=== PATIENT | male | born 1940 | race Caucasian/White ===

== ENCOUNTER → 2016-12-05 | Outpatient (REF) | payer MEDICARE ==
[~2016-12-05] MED LIST: ALLO100T PO; ASCO25TA PO; ASPI81TA11 PO; ATEN25TA PO; CIPR500T89 PO; GLUC1CAP9 PO; MULTCAP PO; PERC5TAB6 PO; SIMV40TA2 PO; hydroeye OR; vitamin D OR
== END ==
LOC: M SMT 16:53
PROVIDERS: ATTEND Urology
DX: R97.20 Elevated prostate specific antigen [PSA] (principal)

== ENCOUNTER → 2017-03-03 | Outpatient (REF) | payer MEDICARE ==
[2017-03-03 18:40] LABS: FOLATE > 24.0 NG/ML; VITAMIN B12 LEVEL 663 PG/ML
== END ==
LOC: M LAB REF 17:14
PROVIDERS: ATTEND Internal Medicine
DX: R41.3 Other amnesia (principal)

== ENCOUNTER → 2017-03-06 | Outpatient (CLI) | payer MEDICARE | LOC: M SMT 14:28 | PROVIDERS: ATTEND Urology | DX: Z85.46 Personal history of malignant neoplasm of prostate (principal) ==

== ENCOUNTER → 2017-09-11 | Outpatient (CLI) | payer MEDICARE ==
[~2017-09-11] MED LIST changes: +ASPI-101 PO; -ASPI81TA11 PO; +CIPR-249 PO; -CIPR500T89 PO; +PERC5TAB12 PO; -PERC5TAB6 PO
== END ==
LOC: M SMT 13:29
PROVIDERS: ATTEND Nurse Practitioner Women's Health
DX: C61 Malignant neoplasm of prostate (principal)

== ENCOUNTER → 2018-06-01 | Outpatient (REF) | payer MEDICARE ==
[2018-06-01 20:43] LABS: RHEUMATOID FACTOR QUANT < 10.0 IU/ML (<15.0)
[2018-06-01 20:43] LABS: C REACTIVE PROTEIN QUANTITATIV 0.96 MG/DL (0.00-0.30)
[2018-06-03 14:14] LABS: ANTINUCLEAR ANTIBODIES DIRECT Negative (Negative); Lyme Disease IgG/IgM Antibodie <0.91 ISR (0.00-0.90); Lyme Disease IgM Ab Quantitati <0.80 index (0.00-0.79)
== END ==
LOC: M LAB REF 20:10
DX: M15.9 Polyosteoarthritis, unspecified (principal)
CPT/HCPCS: 86140

== ENCOUNTER → 2018-07-13 | Outpatient (REF) | payer MEDICARE ==
[2018-07-13 18:37] LABS: BASO % 0.3 % (0.0-1.0); EOS # 0.1 10^3/uL (0.0-0.50); EOS % 1.2 % (0.0-3.0); HEMATOCRIT 41.3 % (42.0-52.0); HEMOGLOBIN 13.5 g/dl (13.5-17.5); IMMATURE GRANULOCYTE % 0.5 % (0-3.0); LYMPH # 2.4 10^3/uL (1.5-4.5); LYMPH % 26.2 % (24.0-44.0); MEAN CORPUSCULAR HGB CONC 32.7 g/dl (32.0-36.5); MEAN CORPUSCULAR VOLUME 88.8 fl (80.0-96.0); MONO # 1.2 10^3/uL (0.0-0.8); MONO % 12.6 % (0.0-5.0); NEUTROPHILS # 5.4 10^3/uL (1.8-7.7); NEUTROPHILS % 59.2 % (36.0-66.0); PLATELET COUNT, AUTOMATED 241 10^3/uL (150-450); RED BLOOD COUNT 4.65 10^6/uL (4.30-6.10); RED CELL DISTRIBUTION WIDTH 14.7 % (11.5-14.5); WHITE BLOOD COUNT 9.2 10^3/uL (4.0-10.0)
[2018-07-13 18:40] LABS: ALBUMIN 3.5 GM/DL (3.2-5.2); ALBUMIN/GLOBULIN RATIO 1.13 (1.00-1.93); ALKALINE PHOSPHATASE 86 U/L (45-117); ALT/SGPT 29 U/L (12-78); ANION GAP 9 MEQ/L (8-16); AST/SGOT 11 U/L (7-37); BILIRUBIN,TOTAL 0.4 MG/DL (0.2-1.0); BLOOD UREA NITROGEN 17 MG/DL (7-18); C REACTIVE PROTEIN QUANTITATIV 2.95 MG/DL (0.00-0.30); CARBON DIOXIDE LEVEL 28 MEQ/L (21-32); CHLORIDE LEVEL 105 MEQ/L (98-107); CREATININE FOR GFR 0.87 MG/DL (0.70-1.30); GLOMERULAR FILTRATION RATE > 60.0 (>42); GLUCOSE, FASTING 104 MG/DL (70-100); POTASSIUM SERUM 4.2 MEQ/L (3.5-5.1); SODIUM LEVEL 142 MEQ/L (136-145); TOTAL PROTEIN 6.6 GM/DL (6.4-8.2); URIC ACID 4.1 MG/DL (3.5-7.2)
[2018-07-13 20:01] LABS: ERYTHROCYTE SEDIMENTATION RATE 12 mm/hr (0-20)
== END ==
LOC: M SFHCLERA 09:11
DX: M25.50 Pain in unspecified joint (principal)
CPT/HCPCS: 84550

== ENCOUNTER → 2018-07-13 | Outpatient (CLI) | payer MEDICARE | LOC: M LRY 13:17 | DX: M25.721 Osteophyte, right elbow (principal); M19.041 Primary osteoarthritis, right hand; M19.011 Primary osteoarthritis, right shoulder | CPT/HCPCS: 73030; 84550 ==

== ENCOUNTER → 2018-08-30 | Outpatient (CLI) | payer MEDICARE ==
[2018-08-30 13:32] LABS: C REACTIVE PROTEIN QUANTITATIV 1.31 MG/DL (0.00-0.30); CHOLESTEROL LEVEL 238 MG/DL (<200); CHOLESTEROL RISK RATIO 6.611 (<5); HDL CHOLESTEROL 36 MG/DL (>40); LDL CHOLESTEROL 146 MG/DL (<100); NON-HDL-C 202 MG/DL; TRIGLYCERIDES LEVEL 281 MG/DL (<150)
== END ==
LOC: M SMT 10:40
DX: M25.50 Pain in unspecified joint (principal)
CPT/HCPCS: 80061

== ENCOUNTER → 2018-08-30 | Outpatient (REF) | payer MEDICARE | LOC: M SFHCLERA 09:34 | DX: M25.50 Pain in unspecified joint (principal) ==

== ENCOUNTER → 2018-09-20 | Outpatient (CLI) | payer MEDICARE ==
[2018-09-20 18:34] LABS: PROSTATIC SPECIFIC AG MONITOR < 0.0 NG/ML (< 4.0)
== END ==
LOC: M SMT 13:08
DX: Z85.46 Personal history of malignant neoplasm of prostate (principal)
CPT/HCPCS: 84153

== ENCOUNTER → 2019-03-28 | Outpatient (CLI) | payer MEDICARE ==
[~2019-03-28] MED LIST changes: -ASCO25TA PO; -ASPI-101 PO; +ASPI-225 PO; +VITA1TAB23 PO
== END ==
LOC: M SMT 10:27
PROVIDERS: ATTEND Nurse Practitioner Women's Health
DX: Z85.46 Personal history of malignant neoplasm of prostate (principal)

== ENCOUNTER → 2019-09-29 | Outpatient (CLI) | payer MEDICARE ==
[~2019-09-29] MED LIST changes: -SIMV40TA2 PO; +SIMV40TA20 PO
== END ==
LOC: M PLALAB 13:23
PROVIDERS: ATTEND Nurse Practitioner Women's Health
DX: Z85.46 Personal history of malignant neoplasm of prostate (principal)

== ENCOUNTER 2019-10-04 17:27 | Emergency (ER) | payer MEDICARE ==
[~2019-10-04] VITALS: Ht 172.7 cm; Wt 100.2 kg
[~2019-10-04 17:27] MED LIST changes: -ASPI-225 PO; +ASPI81TA78 PO
[2019-10-04] MEDS ORDERED: METO1TAB7 PO (17:36)
[2019-10-04] MEDS ORDERED: ASPI81TA85 PO (17:36)
[2019-10-04] MEDS ORDERED: ASPIRIN 81 MG CHEW TABLET PO ONE (18:15)
--- NOTE | 2019-10-04 18:48 | REP ---
Clinical: Chest pain . Comparison: 12/21/2014 . Findings: The mediastinum and cardiac silhouette are stable and within normal limits for portable technique. The lung stephenson demonstrate chronic changes without acute consolidation, effusion, or pneumothorax. Skeletal structures are intact. Impression: No acute cardiopulmonary process appreciated. Electronically Signed by Bryn Mayo MD 10/04/2019 06:39 P
[2019-10-04 19:07] LABS: BASO % 0.5 % (0.0-1.0); EOS # 0.1 10^3/uL (0.0-0.5); EOS % 1.3 % (0.0-3.0); HEMATOCRIT 43.6 % (42.0-52.0); HEMOGLOBIN 14.5 g/dl (13.5-17.5); LYMPH # 1.9 10^3/uL (1.5-5.0); LYMPH % 22.2 % (24.0-44.0); MEAN CORPUSCULAR HEMOGLOBIN 31.3 pg (27.0-33.0); MEAN CORPUSCULAR HGB CONC 33.3 g/dl (32.0-36.5); MONO # 0.8 10^3/uL (0.0-0.8); MONO % 9.2 % (0.0-5.0); NEUTROPHILS # 5.6 10^3/uL (1.5-8.5); NEUTROPHILS % 65.9 % (36.0-66.0); PLATELET COUNT, AUTOMATED 215 10^3/uL (150-450); RED BLOOD COUNT 4.64 10^6/uL (4.30-6.10); WHITE BLOOD COUNT 8.5 10^3/uL (4.0-10.0)
[2019-10-04 19:30] LABS: ALBUMIN 3.6 GM/DL (3.2-5.2); ALT/SGPT 32 U/L (12-78); BILIRUBIN,DIRECT 0.1 MG/DL (0.0-0.2); BILIRUBIN,TOTAL 0.3 MG/DL (0.2-1.0); BLOOD UREA NITROGEN 19 MG/DL (7-18); CALCIUM LEVEL 9.1 MG/DL (8.8-10.2); CARBON DIOXIDE LEVEL 26 MEQ/L (21-32); CHLORIDE LEVEL 105 MEQ/L (98-107); CK-MB VALUE MASS 12.9 NG/ML (<3.6); CPK CREATINE PHOSPHOKINASE 323 U/L (39-308); CREATININE FOR GFR 1.09 MG/DL (0.70-1.30); GLOMERULAR FILTRATION RATE > 60.0 (>42); GLUCOSE, FASTING 145 MG/DL (70-100); LIPASE 165 U/L (73-393); MB/CK RELATIVE INDEX 3.99 (< OR =4); SODIUM LEVEL 143 MEQ/L (136-145); TOTAL PROTEIN 6.7 GM/DL (6.4-8.2); TROPONIN I 0.57 NG/ML (< 0.10)
[2019-10-04] MEDS ORDERED: HEPARIN DRIP 25,000 UNITS in IV 1 EA IV SCH (19:48)
[2019-10-04] MEDS ORDERED: HEPARIN SOD (PORCINE) 5000 UNITS/ML VIAL (J1644 PER 1000UNITS) IV ONE (20:00)
[2019-10-04] MEDS ORDERED: CLOPIDOGREL 300 MG TAB (PLAVIX) PO ONE (20:30)
--- NOTE | 2019-10-04 20:37 | ECGEPIP ---
[facility] - ED Test Date: 2019-10-04 Pat Name: LEEANNE ARGUETA Department: Room: - Gender: Male Video Production Engineer: cristiane : [id number] Requested By: Garry Salas Order Number: [id number] Reading MD: Garry Solis Measurements Intervals [place] Rate: 56 P: 41 TX: 234 QRS: -55 QRSD: 186 T: 126 QT: 448 QTc: 434 Interpretive Statements SINUS BRADYCARDIA WITH SINUS ARRHYTHMIA WITH FIRST DEGREE AV BLOCK LEFT AXIS DEVIATION LEFT BUNDLE BRANCH BLOCK SIMILAR TO 12/21/14 Electronically Signed on 10-04-2019 20:37:15 EST by Garry Solis
[2019-10-04 20:50] LABS: INR 1.03; PROTHROMBIN TIME 13.2 SECONDS (11.8-14.0)
[2019-10-04 20:51] LABS: PARTIAL THROMBOPLASTIN TIME 42.3 SECONDS (25.0-38.4)
[2019-10-04 21:18] VITALS: BP 156/96
== END 2019-10-04 21:18 | disposition short-term general hospital (02) ==
LOC: M ED 17:27
DX: I21.9 Acute myocardial infarction, unspecified (principal); R94.31 Abnormal electrocardiogram [ECG] [EKG]; Z85.46 Personal history of malignant neoplasm of prostate; Z79.82 Long term (current) use of aspirin; Z79.899 Other long term (current) drug therapy
CPT/HCPCS: 71045; 80048; 80076; 82550; 82553; 83690; 84484; 85025; 85610; 85730; 93005; 93041; 94760; 96374; 99285; G0463; J1644

== ENCOUNTER 2019-10-25 12:00 | Inpatient (IN) | payer MEDICARE ==
[~2019-10-25] VITALS: Ht 172.7 cm; Wt 87.0 kg
[~2019-10-25 12:00] MED LIST changes: +ASPI81TA85 PO; +METO1TAB7 PO
[2019-10-25] MEDS ORDERED: BISACODYL 10 MG SUPP PR PRN (13:00)
[2019-10-25 13:46] VITALS: BP 132/76
[2019-10-25] MEDS ORDERED: METO50TA7 PO (13:49)
[2019-10-25] MEDS ORDERED: ZYLO300T6 PO (13:49)
[2019-10-25] MEDS ORDERED: ACET-907 PO (13:49)
[2019-10-25] MEDS ORDERED: VITA-158 PO (13:49)
[2019-10-25] MEDS ORDERED: MELA5TAB7 PO (13:49)
[2019-10-25] MEDS ORDERED: FURO20TA2 PO (13:49)
[2019-10-25] MEDS ORDERED: FLOM0.4C39 PO (13:49)
[2019-10-25] MEDS ORDERED: CEFE2INJ2 IV (13:49)
[2019-10-25] MEDS ORDERED: FERR1TAB8 PO (13:49)
[2019-10-25] MEDS ORDERED: CETI10TA4 PO (13:49)
[2019-10-25] MEDS ORDERED: ASPI81CH33 PO (13:49)
[2019-10-25] MEDS ORDERED: LISI-1046 PO (13:49)
[2019-10-25] MEDS ORDERED: POTA10CA32 PO (13:49)
[2019-10-25] MEDS ORDERED: LIDO5TD TOP (13:49)
[2019-10-25] MEDS ORDERED: FOLI1TAB11 PO (13:49)
[2019-10-25] MEDS ORDERED: WARF-18 PO (13:49)
[2019-10-25] MEDS ORDERED: FAMO1TAB11 PO (13:49)
[2019-10-25] MEDS ORDERED: PLAV1TAB2 PO (13:49)
[2019-10-25] MEDS ORDERED: MAGN1INJ2 IV (13:49)
[2019-10-25] MEDS ORDERED: REFR0.1D OU (13:49)
[2019-10-25] MEDS ORDERED: HEPA500057 INJ (13:49)
[2019-10-25] MEDS ORDERED: MOVE1TAB PO (13:49)
[2019-10-25] MEDS ORDERED: traZODone 25MG PER 1/2 TABLET PO PRN (16:45)
[2019-10-25] MEDS: POLYVINYL ALCOHOL OPHTH SOLN 15 ML(LIQUITEARS) OU SCH ×2 (17:52→21:47)
[2019-10-25] MEDS: ACETAMINOPHEN 500 MG TAB PO SCH ×2 (17:52→21:47)
[2019-10-25] MEDS: WARFARIN SOD 2.5 MG TAB PO SCH (17:52)
[2019-10-25 20:00] VITALS: BP 127/59
[2019-10-25] MEDS: IPRATROPIUM 0.02% SOLN 0.5MG/2.5 ML NEB INH SCH (20:36)
[2019-10-25] MEDS: LIDOCAINE 5% (LIDODERM) PATCH TD SCH (21:44)
[2019-10-25] MEDS: FERROUS SULFATE 325MG TAB PO SCH (21:45)
[2019-10-25] MEDS: CETIRIZINE (ZyrTEC) 10 MG TAB PO SCH (21:45)
[2019-10-25] MEDS: SENNA 8.6 MG TAB (SENOKOT) PO SCH (21:45)
[2019-10-25] MEDS: TAMSULOSIN 0.4 MG CAP PO SCH (21:45)
[2019-10-25] MEDS: METOPROLOL TART 50 MG TAB PO SCH (21:45)
[2019-10-25] MEDS: DOCUSATE SODIUM 100 MG CAP PO SCH (21:46)
[2019-10-25] MEDS: CEFDINIR 300 MG CAP (OMNICEF) PO SCH (21:47)
[2019-10-26 06:00] VITALS: BP 147/68
[2019-10-26 07:48] LABS: BASO % 0.3 % (0.0-1.0); EOS # 0.3 10^3/uL (0.0-0.5); EOS % 3.2 % (0.0-3.0); HEMATOCRIT 27.2 % (42.0-52.0); HEMOGLOBIN 8.3 g/dl (13.5-17.5); LYMPH # 1.1 10^3/uL (1.5-5.0); LYMPH % 10.8 % (24.0-44.0); MEAN CORPUSCULAR HEMOGLOBIN 28.1 pg (27.0-33.0); MEAN CORPUSCULAR HGB CONC 30.5 g/dl (32.0-36.5); MEAN CORPUSCULAR VOLUME 92.2 fl (80.0-96.0); MONO # 1.4 10^3/uL (0.0-0.8); MONO % 13.7 % (0.0-5.0); NEUTROPHILS % 70.7 % (36.0-66.0); PLATELET COUNT, AUTOMATED 550 10^3/uL (150-450); RED BLOOD COUNT 2.95 10^6/uL (4.30-6.10)
[2019-10-26] MEDS: IPRATROPIUM 0.02% SOLN 0.5MG/2.5 ML NEB INH SCH ×2 (08:00→14:00)
[2019-10-26 08:02] LABS: INR 2.17
[2019-10-26 08:20] LABS: ALBUMIN 2.6 GM/DL (3.2-5.2); ALT/SGPT 78 U/L (12-78); BILIRUBIN,TOTAL 0.5 MG/DL (0.2-1.0); BLOOD UREA NITROGEN 15 MG/DL (7-18); CALCIUM LEVEL 8.3 MG/DL (8.8-10.2); CARBON DIOXIDE LEVEL 27 MEQ/L (21-32); CHLORIDE LEVEL 106 MEQ/L (98-107); CREATININE FOR GFR 0.89 MG/DL (0.70-1.30); GLOMERULAR FILTRATION RATE > 60.0 (>42); GLUCOSE, FASTING 106 MG/DL (70-100); POTASSIUM SERUM 4.1 MEQ/L (3.5-5.1); SODIUM LEVEL 141 MEQ/L (136-145); TOTAL PROTEIN 6.1 GM/DL (6.4-8.2)
[2019-10-26] MEDS: FOLIC ACID 1 MG TAB PO SCH (09:21)
[2019-10-26] MEDS: allopurinoL 300 MG TAB PO SCH (09:21)
[2019-10-26] MEDS: POTASSIUM CHLORIDE 10 MEQ SR TABLET PO SCH (09:21)
[2019-10-26] MEDS: LISINOPRIL *2.5 MG* TAB PO SCH (09:21)
[2019-10-26] MEDS: ROSUVASTATIN 10 MG TAB (CRESTOR) PO SCH (09:21)
[2019-10-26] MEDS: DOCUSATE SODIUM 100 MG CAP PO SCH ×2 (09:22→22:07)
[2019-10-26] MEDS: METOPROLOL TART 50 MG TAB PO SCH ×2 (09:22→22:08)
[2019-10-26] MEDS: FUROSEMIDE 20 MG TAB PO SCH (09:22)
[2019-10-26] MEDS: PANTOPRAZOLE 40MG TAB (PROTONIX) PO SCH (09:22)
[2019-10-26] MEDS: CEFDINIR 300 MG CAP (OMNICEF) PO SCH ×2 (09:22→22:07)
[2019-10-26] MEDS: ASCORBIC ACID 500 MG TAB PO SCH (09:22)
[2019-10-26] MEDS: CLOPIDOGREL 75 MG TAB PO SCH (09:22)
[2019-10-26] MEDS: ASPIRIN 81 MG ENTERIC TAB PO SCH (09:22)
[2019-10-26] MEDS: FERROUS SULFATE 325MG TAB PO SCH ×2 (09:22→22:08)
[2019-10-26] MEDS: ACETAMINOPHEN 500 MG TAB PO SCH ×3 (09:22→22:07)
[2019-10-26] MEDS: POLYVINYL ALCOHOL OPHTH SOLN 15 ML(LIQUITEARS) OU SCH ×3 (09:23→22:15)
[2019-10-26] MEDS: **NOTE PATIENT COMMENT** MISC XX SCH (09:23)
--- NOTE | 2019-10-26 13:37 | IPNPDOC ---
PM&R Progress Note DATE OF SERVICE: Oct 26, 2019 Rotating Equipment Engineer Progress Note Subjective: Patient reporting he did well today in therapy, feels ok, but does have a cough and has difficulty catching his breath, but denies chest pain. REVIEW OF SYSTEMS: The following is a completed review of systems and has been reviewed. Review of systems otherwise unremarkable. PAIN: Patient self reports no pain EYES: No recent vision changes EARS, NOSE, & THROAT: No throat pain, or dysphagia, or rhinorrhea CARDIOVASCULAR: Denies chest pain or palpitations PULMONARY: Denies shortness of breath at rest, +exertional dyspnea GASTROINTESTINAL: Denies constipation/diarrhea GENITOURINARY: denies dysuria MUSCULOSKELETAL: generalized weakness NEUROLOGICAL:denies focal tremor or seizure activity HEMATOLOGICAL: denies easy bruising SKIN: sternal and chest wall incision PSYCHIATRIC: Unremarkable All other review of systems found to be negative. PHYSICAL EXAMINATION: VITAL SIGNS: Please see below. GENERAL: Pleasant and cooperative. No acute distress. HEENT: PERRL. Extraocular movements intact. Clear conjunctiva CARDIOVASCULAR: Regular rate and rhythm. No murmurs, rubs, or gallops LUNGS: Clear to auscultation bilaterally. No wheezes. No rhonchi ABDOMEN: Soft, nontender, nondistended. Positive bowel sounds. Normal active bowel sounds NEUROLOGICAL: Alert and oriented times three. Cranial nerves II through XII grossly intact. Sensation grossly intact in all 4 extremities EXTREMITIES: 5\\5 strength bilateral upper extremities. 5\\5 strength right lower extremity. 5/5 strength in left lower extremity. +bilat LE edema SKIN: sternal incision c/d/i, pacemaker incision c/d/i right calf with bruising, erythematous, and mildly TTP ASSESSMENT:79-year-old M with past medical history of HTN, CAD who presents status post CABGx6 complicated by long hospital course with generalized weakness and cardiac deconditioning PLAN: 1. Rehab- PT, OT advance gait training and endurance using energy conservation techniques-sternal and pacemaker precautions -goal max-exertion RPE 4-5 2.Cardiac: s/p CABGx6 and pacemaker in setting of newly diagnoses afib with tach-abundio syndrome-c/u metoprolol, ASA, Plavix, and Coumadin goal INR 2-3, medicine consulted to assist in management -will refer to cardiac rehab -HTN and systolic CHF with EF 40-45% c/u lisinopril, lasix, will fluid restrict, daily weights -HLD c/u statin 3. Resp: monitor for infection, patient with mild cough, will change to Duonebs, add guaifenasin -CXR today hsows bilateral pleural effusions with new left lower lobe opacity, and "New right paratracheal mediastinal mass status post recent sternotomy with pacemaker"- patient without leukocytosis or fever, will discuss with medicine adjusting antibiotics for possible PNA, Resp panel ordered -CT Chest with contrast confirmed mass is a hematoma, discussed case with [facility] radiology who could not do CT-CT comparison, but was able to compare X-ray-X-ray and said is was about the same size -will consider repeat CT chest to monitor size of hematoma if Hgb drops or if patient reports chest pain while on DAPT and Coumadin, it is likely normal post- op changes that will reabsorb on its own 4. ID: c/u Cefdinir for RLE cellulitis, monitor for worsening infection 5. RHeum: hx of gout, c/u allopurinol 6. DVT ppx: on coumadin, RIJ DVT on coumadin 7. GI ppx: protonix- will oder FOBT while on DAPT and Coumadin 8. Pain: tylneol prn 9. Dispo: TBD Allergies Coded Allergies: No Known Allergies (Unverified , 07/13/13) Vital Signs Vital Signs Date Time Temp Pulse Resp B/P (MAP) Pulse Ox O2 Delivery O2 Flow Rate FiO2 10/26/19 09:22 80 10/26/19 09:21 126/62 10/26/19 06:00 97.5 20 95 Room Air Laboratory Data CBC/BMP Laboratory Tests 10/26/19 07:24 Labs 24H Laboratory Tests 2 10/26/19 07:24: Immature Granulocyte % (Auto) 1.3, Neutrophils (%) (Auto) 70.7H, Lymphocytes (%) (Auto) 10.8L, Monocytes (%) (Auto) 13.7H, Eosinophils (%) (Auto) 3.2H, Basophils (%) (Auto) 0.3, Neutrophils # (Auto) 7.0, Lymphocytes # (Auto) 1.1L, Monocytes # (Auto) 1.4H, Eosinophils # (Auto) 0.3, Basophils # (Auto) 0.0, Nucleated Red Blood Cells % (auto) 0.0, Prothrombin Time 24.0H, Prothromb Time International Ratio 2.17, Anion Gap 8, Glomerular Filtration Rate > 60.0, Calcium Level 8.3L, Total Bilirubin 0.5, Aspartate Amino Transf (AST/SGOT) 44H, Alanine Aminotransferase (ALT/SGPT) 78, Alkaline Phosphatase 57, Total Protein 6.1L, Albumin 2.6L, Albumin/Globulin Ratio 0.74L Current Medications Current Medications Current Medications Medications (Trade) Dose Ordered Sig/Rohit Route PRN Reason Start Time Stop Time Status Last Admin Dose Admin Acetaminophen (Tylenol Tab) 1,000 mg TID PO 10/25/19 16:00 10/26/19 09:22 Allopurinol (Zyloprim) 300 mg DAILY PO 10/26/19 09:00 10/26/19 09:21 Artificial Tears (Akwa Tears) 2 drop TID OU 10/25/19 16:00 10/26/19 09:23 Ascorbic Acid (Vitamin C) 500 mg DAILY PO 10/26/19 09:00 10/26/19 09:22 Aspirin (Ecotrin) 81 mg DAILY PO 10/26/19 09:00 10/26/19 09:22 Bisacodyl (Dulcolax Suppository) 10 mg DAILYPRN PRN NC CONSTIPATION 10/25/19 13:00 Cefdinir (Omnicef) 300 mg BID PO 10/25/19 21:00 10/26/19 09:22 Cetirizine HCl (ZyrTEC) 10 mg QHS PO 10/25/19 21:00 10/25/19 21:45 Clopidogrel Bisulfate (PLAVix) 75 mg DAILY PO 10/26/19 09:00 10/26/19 09:22 Docusate Sodium (Colace) 100 mg BID PO 10/25/19 21:00 10/26/19 09:22 Ferrous Sulfate (Ferrous Sulfate) 325 mg BID PO 10/25/19 21:00 10/26/19 09:22 Folic Acid (Folic Acid) 1 mg DAILY PO 10/26/19 09:00 10/26/19 09:21 Furosemide (Lasix) 20 mg DAILY PO 10/26/19 09:00 10/31/19 21:00 10/26/19 09:22 Home Med (Med Rec Complete!) ASDIRECTED XX 10/25/19 14:00 10/25/19 13:55 DC Ipratropium [place] (Atrovent 0.02%) 0.5 mg RTID INH 10/25/19 20:00 10/25/19 20:36 Lidocaine (Lidoderm Patch) 2 patch QHS TD 10/25/19 21:00 10/25/19 21:44 Lisinopril (Prinivil) 2.5 mg DAILY PO 10/26/19 09:00 10/26/19 09:21 Metoprolol Tartrate (Lopressor) 50 mg BID PO 10/25/19 21:00 10/26/19 09:22 Non-Formulary Medication ( See Comment Field Below ) REMOVE LIDODERM PATCH DAILY@0900 XX 10/26/19 09:00 10/26/19 09:23 Pantoprazole Sodium (Protonix) 40 mg DAILY PO 10/26/19 09:00 10/26/19 09:22 Polyethylene Glycol (Miralax) 1 pkt DAILY PRN PO CONSTIPATION 10/25/19 13:00 Potassium Chloride (Micro-K Extencaps) 10 meq DAILY PO 10/26/19 09:00 10/31/19 21:00 10/26/19 09:21 Rosuvastatin Calcium (Crestor) 20 mg DAILY PO 10/26/19 09:00 10/26/19 09:21 Senna (Senokot) 1 tab QHS PO 10/25/19 21:00 10/25/19 21:45 Tamsulosin HCl (Flomax) 0.4 mg QHS PO 10/25/19 21:00 10/25/19 21:45 Trazodone HCl (Desyrel) 25 mg QHSP PRN PO INSOMNIA 10/25/19 16:45 10/26/19 01:39 Warfarin Sodium (Coumadin) 2.5 mg DAILY@17 PO 10/25/19 17:00 10/25/19 17:52 LIGIA RICH MD Oct 26, 2019 13:37
--- NOTE | 2019-10-26 13:37 | HPEPDOC ---
Smoking Pipe Liner Note DATE OF ADMISSION: 10-25-19 DATE OF SERVICE: 10-25-19 TIME OF ADMISSION: Please refer to physician's admission order. SOURCE OF ADMISSION INFORMATION: patient and [facility] records CHIEF COMPLAINT: CABG x6 and pacemaker placement HISTORY OF PRESENT ILLNESS: 79M pmh HTN, HLD, gout, prostate cancer who presented to [facility] ED on 10-04-19 with chest pain, noted to have an NSTEMI and transferred to [facility] on a heparin drip and underwent cardiac catheterization on 10-05-19 which showed multiple stenotic vessels and underwent a 6-vessel CABG on 10-10-19. Had had post-op Afib with RVR with episodes of tachycardia and bradycardia for which a pacemaker was ultimately placed on 10-18-19. He also had a post-op ileus and urinary retention for which a Valles was placed then later removed. He developed RLE harvest side cellulitis and treated with IV antibiotics then transitioned to po. He was started on Coumadin for Afib, evaluated by therapy and noted to have impairments in ADLs and mobility below his prior level of function and deemed medically appropriate for discharge to ARU on 10-25-19. REVIEW OF SYSTEMS: The following is a completed review of systems and has been reviewed. Review of systems otherwise unremarkable. PAIN: Patient self reports no pain EYES: No recent vision changes EARS, NOSE, & THROAT: No throat pain, or dysphagia, or rhinorrhea CARDIOVASCULAR: Denies chest pain or palpitations PULMONARY: Denies shortness of breath at rest, +exertional dyspnea GASTROINTESTINAL: Denies constipation/diarrhea GENITOURINARY: denies dysuria MUSCULOSKELETAL: generalized weakness NEUROLOGICAL:denies focal tremor or seizure activity HEMATOLOGICAL: denies easy bruising SKIN: sternal and chest wall incision PSYCHIATRIC: Unremarkable All other review of systems found to be negative. PAST MEDICAL HISTORY: as per HPI PAST SURGICAL HISTORY: prostatectomy ALLERGIES: Please see below. MEDICATIONS: Please see below. SOCIAL HISTORY: no smoking, etoh, or illicit drugs, plays tennis DIET: low salt, fluid restrict PHYSICAL EXAMINATION: VITAL SIGNS: Please see below. GENERAL: Pleasant and cooperative. No acute distress. HEENT: PERRL. Extraocular movements intact. Clear conjunctiva CARDIOVASCULAR: Regular rate and rhythm. No murmurs, rubs, or gallops LUNGS: Clear to auscultation bilaterally. No wheezes. No rhonchi ABDOMEN: Soft, nontender, nondistended. Positive bowel sounds. Normal active bowel sounds NEUROLOGICAL: Alert and oriented times three. Cranial nerves II through XII grossly intact. Sensation grossly intact in all 4 extremities EXTREMITIES: 5\5 strength bilateral upper extremities. 5\5 strength right lower extremity. 5/5 strength in left lower extremity. +bilat LE edema SKIN: sternal incision c/d/i, pacemaker incision c/d/i right calf with bruising, erythematous, and mildly TTP LABORATORY DATA: Please see below. IMAGING:Imaging documentation personally reviewed by record FUNCTIONAL STATUS: Premorbid: Independent with all activities of daily life as well as mobility On Admission: Min-assist for ambulation, functional transfers, dressing, toileting, bathing GOALS: Mod-I doss ambulation community distances, stairs, functional transfers, bathing, dressing, toileting, medical optimization ASSESSMENT:79-year-old M with past medical history of HTN, CAD who presents status post CABGx6 complicated by long hospital course with generalized weakness and cardiac deconditioning PLAN: 1. Rehab- PT, OT advance gait training and endurance using energy conservation techniques-sternal and pacemaker rpecautions -goal max-exertion RPE 4-5 2.Cardiac: s/p CABGx6 and pacemaker in setting of newly diagnoses afib with tach-abundio syndrome-c/u metoprolol, ASA, Plavix, and Coumadin goal INR 2-3, medicine consulted to assist in management -will refer to cardiac rehab -HTN and systolic CHF with EF 40-45% c/u lisinopril, lasix, will fluid restrict, daily weights -HLD c/u statin 3. Resp: monitor for infection, patient with mild cough, will start Ipratropium nebs 4. ID: c/u Cefdinir for RLE cellulitis, monitor for worsening infection 5. RHeum: hx of gout, c/u allopurinol 6. DVT ppx: on coumadin 7. GI ppx: protonix- will oder FOBT while on DAPT and Coumadin 8. Pain: tylneol prn 9. Dispo: TBD POST ADMISSION PHYSICIAN EVALUATION: Medical and functional status: Description of medical status, medical assessment: As above. Rehabilitation diagnosis and current and prior cold morbid medical conditions as above. Risk of complications and plans to mitigate them as above. Description of functional status current status is as above. Prior status as above. Status compared to preadmission: There are no clinically significant differences between the patient's current status and the information described on the preadmission screening document. Treatment plan anticipated: Treatment plan is as described above. Required disciplines including physical therapy, occupational therapy, others as noted above. Intensity of services: 3 hours a day, 6 days a week. Special considerations: There are no specific special or safety considerations that would likely preclude immediate implementation of an intensive rehabilitation program or subsequently influence the plan of care ATTESTATION: Considering all the information above, it is my best judgment that this patient requires intensive rehabilitation therapy as described above and an inpatient hospital environment due to the complexity of nursing, medical, and rehabilitation needs required by the patient. Furthermore, this patient can reasonably be expected to participate in an benefit from an inpatient rehabilitation stay with an interdisciplinary team approach to the delivery of rehabilitation care under the direction and supervision of rehabilitation physician PROGNOSIS: Good ESTIMATED LENGTH OF STAY:14-16 days. PROJECTED DISCHARGE DESTINATION: Home with family support and any durable medical equipment required to increase functional safety and mobility. TIME SPENT COUNSELING AND COORDINATING INITIAL CARE: Greater than 70 minutes. Vital Signs Vital Sign - Last 24 Hours 10/25/19 10/25/19 10/25/19 10/26/19 13:46 20:00 21:45 06:00 Temp 97.4 97.9 97.5 Pulse 69 82 77 65 Resp 18 18 20 B/P (MAP) 132/76 (94) 127/59 (81) 126/68 147/68 (94) Pulse Ox 94 94 95 O2 Delivery Room Air Room Air Room Air 10/26/19 10/26/19 09:21 09:22 Pulse 80 B/P (MAP) 126/62 Laboratory Data CBC/BMP Laboratory Tests 10/26/19 07:24 Labs 24H Laboratory Tests 2 10/26/19 07:24: Immature Granulocyte % (Auto) 1.3, Neutrophils (%) (Auto) 70.7H, Lymphocytes (%) (Auto) 10.8L, Monocytes (%) (Auto) 13.7H, Eosinophils (%) (Auto) 3.2H, Basophils (%) (Auto) 0.3, Neutrophils # (Auto) 7.0, Lymphocytes # (Auto) 1.1L, Monocytes # (Auto) 1.4H, Eosinophils # (Auto) 0.3, Basophils # (Auto) 0.0, Nucleated Red Blood Cells % (auto) 0.0, Prothrombin Time 24.0H, Prothromb Time International Ratio 2.17, Anion Gap 8, Glomerular Filtration Rate > 60.0, Calcium Level 8.3L, Total Bilirubin 0.5, Aspartate Amino Transf (AST/SGOT) 44H, Alanine Aminotransferase (ALT/SGPT) 78, Alkaline Phosphatase 57, Total Protein 6.1L, Albumin 2.6L, Albumin/Globulin Ratio 0.74L Home Medications Scheduled Allopurinol (Zyloprim) 300 Mg Tablet, 300 MG PO DAILY, (Reported) Ascorbic Acid (Vitamin C) 500 Mg Tablet, 500 MG PO DAILY, (Reported) STARTED AT [facility] Aspirin (Aspirin) 81 Mg Tab.chew, 81 MG PO DAILY, (Reported) Cefepime in Iso-Osm Dextrose (Cefepime 2 gm Injection) 2 Gm/100 Ml Froz.piggy, 2 GM IV Q12H, (Reported) STARTED AT [facility] Cetirizine HCl (Cetirizine HCl) 10 Mg Tablet, 10 MG PO QHS, (Reported) Clopidogrel Bisulfate (Plavix) 75 Mg Tablet, 75 MG PO DAILY, (Reported) STARTED AT [facility] Famotidine (Famotidine) 20 Mg Tablet, 20 MG PO BID, (Reported) STARTED AT [facility] Ferrous Sulfate (Ferrous Sulfate) 325 Mg Tablet, 325 MG PO BID, (Reported) STARTED AT [facility] Folic Acid (Folic Acid) 1 Mg Tablet, 1 MG PO DAILY, (Reported) STARTED AT [facility] Furosemide (Furosemide) 20 Mg Tablet, 20 MG PO DAILY, (Reported) STARTED AT [facility] Glucosam/Chond/Hyalu/Cf Borate (Move Free Joint Health Tablet) 1 Each Tablet, 3 TAB PO DAILY, (Reported) Heparin Sodium,Porcine/Pf (Heparin Sod 5,000 Unit/ml Syrg) 5,000 Unit/1 Ml Syringe, 5,000 UNIT INJ Q8H, (Reported) STARTED AT [facility] Lidocaine (Lidocaine) 5% Adh..patch, 1 PATCH TOP DAILY, (Reported) APPLY TO RIGHT SHOULDER - STARTED AT [facility] Lisinopril (Lisinopril) 2.5 Mg Tablet, 2.5 MG PO DAILY, (Reported) STARTED AT [facility] Magnesium Sulfate/D5w (Magnesium Sulf 1 G/100 ml-D5w) 1 Gm/100 Ml Piggyback, 1 GM IV ONCE, (Reported) GIVEN AT [facility] Melatonin (Melatonin) 5 Mg Tablet, 5 MG PO QHS, (Reported) Metoprolol Tartrate (Metoprolol Tartrate) 50 Mg Tablet, 50 MG PO BID, (Reported) MED CHANGED AT [facility] FROM TOPROL XL 50MG DAILY Potassium Chloride (Potassium Chloride) 10 Meq Capsule.er, 10 MEQ PO DAILY, (Reported) STARTED AT [facility] Simvastatin (Simvastatin) 40 Mg Tab, 40 MG PO QHS, (Reported) GIVEN CRESTOR 20MG IN THE MORNING AT [facility] Tamsulosin HCl (Flomax) 0.4 Mg Capsule, 0.4 MG PO QHS, (Reported) STARTED AT [facility] Warfarin Sodium (Warfarin Sodium) 2.5 Mg Tablet, 2.5 MG PO QPM, (Reported) STARTED AT [facility] Scheduled PRN Acetaminophen (Tylenol) 325 Mg Tablet, 650 MG PO Q6H PRN for MILD PAIN (PS 1-4), (Reported) Carboxymethylcellulose Sodium (Refresh Plus) 1 Each Droperette, 1 DROP OU TID PRN for DRY EYES, (Reported) Allergies Coded Allergies: No Known Allergies (Unverified , 07/13/13) A-FIB/CHADSVASC A-FIB History Current/History of A-Fib/PAF?: Yes Current PO Anticoag Therapy: Yes LIGIA RICH MD Oct 26, 2019 13:37
[2019-10-26 14:00] VITALS: BP 148/66
--- NOTE | 2019-10-26 15:24 | REP ---
CHEST X-RAY: Two views. HISTORY: Cough. COMPARISON CHEST X-RAY: October 04, 2019. FINDINGS: In the interval since the September 30, 2019 prior study, the patient has undergone median sternotomy. There is a large new right paratracheal mediastinal mass with widening of the mediastinum. This measures approximately 6.5 cm in greatest craniocaudal span. Possibilities include mediastinal hematoma, aneurysm, or adenopathy. There is mild cardiomegaly with bipolar pacemaker in place. Increased density is seen in the left lower lobe behind the heart consistent with atelectasis. There is blunting of the posterior pleural angles bilaterally consistent with bilateral pleural effusions. IMPRESSION: New right paratracheal mediastinal mass status post recent sternotomy with pacemaker. Hematoma versus adenopathy versus aneurysm. CT study of the chest recommended, preferably with IV contrast. Electronically Signed by Troy Altman MD 10/26/2019 06:17 P
[2019-10-26] MEDS ORDERED: ISOVUE-370 76% 100ML VIAL (Q9967) As Ordered ONE (15:42)
--- NOTE | 2019-10-26 15:53 | CR.PDOC ---
General Date of Consultation: Oct 26, 2019 Referring Provider: A Consultation REASON FOR CONSULTATION/CHIEF COMPLAINT: L. knee pain HISTORY OF PRESENT ILLNESS: Patient is 79M with PMH CAD s/p recent CABG, Afib, Prostate cancer s/p prostatectomy, gout, HLD, HTN is admitted to rehab unit after discharged from recent hospitalization. Patient initially presented in 10/04 to [facility] for chest pain and was transferred to [facility] where he underwent CABG with pacemaker placement with course complicated by Afib as well as LE graft infection requiring antibiotics treatment. He is now transferred back to [facility] for rehabilitation. He currently reports having a cough for the past several weeks but with no other associated symptoms including chest pain, SOB, fever, chills, nausea or vomiting. ALLERGIES: Please see below. HOME MEDICATIONS: Please see below. PAST MEDICAL HISTORY: 1. CAD s/p CABG 2. Afib w/ tachy/abundio syndrome s/p pacemaker 3. Prostate ca 4. gout 5. HLD 6. HTN PAST SURGICAL HISTORY: 1. CAD s/p CABG 2. Afib w/ tachy/abundio syndrome s/p pacemaker 3. Prostate ca 4. gout 5. HLD 6. HTN FAMILY HISTORY: Father- DE Mother- DM SOCIAL HISTORY: Social alcohol and cigar use. Denies any drug use. REVIEW OF SYSTEMS: PHYSICAL EXAMINATION: VITAL SIGNS: Please see below. LABORATORY DATA: Please see below. ASSESSMENT/PLAN: 1. CAD s/p CABG - c/w DAPT: ASA, Plavix - No active chest discomfort at this time. 2. Generalized weakness - c/w rehab per ARU. 3. Prostate ca - s/p prostatectomy 4. HTN - c/w lisinopril and metoprolol. 5. gout - c/w allopurinol 6. 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 - Swelling reported improving with no significant erythema around site. 7. Afib - On warfarin. - Monitor INR. 8. HFrEF - EF 40-45%. - c/w ACEI, lasix, metoprolol. DVT ppx: warfarin Vital Signs/I&O Vital Signs Date Time Temp Pulse Resp B/P (MAP) Pulse Ox O2 Delivery O2 Flow Rate FiO2 10/26/19 14:00 98.1 70 18 148/66 (93) 92 Room Air I&O- Last 24 Hours up to 6 AM 10/26/19 06:00 Intake Total 630 ml Balance 630 ml Laboratory Data Labs 24H Laboratory Tests 2 10/26/19 07:24: Immature Granulocyte % (Auto) 1.3, Neutrophils (%) (Auto) 70.7H, Lymphocytes (%) (Auto) 10.8L, Monocytes (%) (Auto) 13.7H, Eosinophils (%) (Auto) 3.2H, Basophils (%) (Auto) 0.3, Neutrophils # (Auto) 7.0, Lymphocytes # (Auto) 1.1L, Monocytes # (Auto) 1.4H, Eosinophils # (Auto) 0.3, Basophils # (Auto) 0.0, Nucleated Red Blood Cells % (auto) 0.0, Prothrombin Time 24.0H, Prothromb Time International Ratio 2.17, Anion Gap 8, Glomerular Filtration Rate > 60.0, Calcium Level 8.3L, Total Bilirubin 0.5, Aspartate Amino Transf (AST/SGOT) 44H, Alanine Aminotransferase (ALT/SGPT) 78, Alkaline Phosphatase 57, Total Protein 6.1L, Albumin 2.6L, Albumin/Globulin Ratio 0.74L CBC/BMP Laboratory Tests 10/26/19 07:24 Allergies Coded Allergies: No Known Allergies (Unverified , 07/13/13) Home Medications Scheduled Allopurinol (Zyloprim) 300 Mg Tablet, 300 MG PO DAILY, (Reported) Ascorbic Acid (Vitamin C) 500 Mg Tablet, 500 MG PO DAILY, (Reported) STARTED AT [facility] Aspirin (Aspirin) 81 Mg Tab.chew, 81 MG PO DAILY, (Reported) Cefepime in Iso-Osm Dextrose (Cefepime 2 gm Injection) 2 Gm/100 Ml Froz.piggy, 2 GM IV Q12H, (Reported) STARTED AT [facility] Cetirizine HCl (Cetirizine HCl) 10 Mg Tablet, 10 MG PO QHS, (Reported) Clopidogrel Bisulfate (Plavix) 75 Mg Tablet, 75 MG PO DAILY, (Reported) STARTED AT [facility] Famotidine (Famotidine) 20 Mg Tablet, 20 MG PO BID, (Reported) STARTED AT [facility] Ferrous Sulfate (Ferrous Sulfate) 325 Mg Tablet, 325 MG PO BID, (Reported) STARTED AT [facility] Folic Acid (Folic Acid) 1 Mg Tablet, 1 MG PO DAILY, (Reported) STARTED AT [facility] Furosemide (Furosemide) 20 Mg Tablet, 20 MG PO DAILY, (Reported) STARTED AT [facility] Glucosam/Chond/Hyalu/Cf Borate (Move Free Joint Health Tablet) 1 Each Tablet, 3 TAB PO DAILY, (Reported) Heparin Sodium,Porcine/Pf (Heparin Sod 5,000 Unit/ml Syrg) 5,000 Unit/1 Ml Syringe, 5,000 UNIT INJ Q8H, (Reported) STARTED AT [facility] Lidocaine (Lidocaine) 5% Adh..patch, 1 PATCH TOP DAILY, (Reported) APPLY TO RIGHT SHOULDER - STARTED AT [facility] Lisinopril (Lisinopril) 2.5 Mg Tablet, 2.5 MG PO DAILY, (Reported) STARTED AT [facility] Magnesium Sulfate/D5w (Magnesium Sulf 1 G/100 ml-D5w) 1 Gm/100 Ml Piggyback, 1 GM IV ONCE, (Reported) GIVEN AT [facility] Melatonin (Melatonin) 5 Mg Tablet, 5 MG PO QHS, (Reported) Metoprolol Tartrate (Metoprolol Tartrate) 50 Mg Tablet, 50 MG PO BID, (Reported) MED CHANGED AT [facility] FROM TOPROL XL 50MG DAILY Potassium Chloride (Potassium Chloride) 10 Meq Capsule.er, 10 MEQ PO DAILY, (Reported) STARTED AT [facility] Simvastatin (Simvastatin) 40 Mg Tab, 40 MG PO QHS, (Reported) GIVEN CRESTOR 20MG IN THE MORNING AT [facility] Tamsulosin HCl (Flomax) 0.4 Mg Capsule, 0.4 MG PO QHS, (Reported) STARTED AT [facility] Warfarin Sodium (Warfarin Sodium) 2.5 Mg Tablet, 2.5 MG PO QPM, (Reported) STARTED AT [facility] Scheduled PRN Acetaminophen (Tylenol) 325 Mg Tablet, 650 MG PO Q6H PRN for MILD PAIN (PS 1-4), (Reported) Carboxymethylcellulose Sodium (Refresh Plus) 1 Each Droperette, 1 DROP OU TID PRN for DRY EYES, (Reported) DALLIN RASHEED MD Oct 26, 2019 15:53
[2019-10-26] MEDS: WARFARIN SOD 2.5 MG TAB PO SCH (17:38)
[2019-10-26] MEDS: guaiFENesin 200 MG TAB PO SCH ×2 (17:38→22:08)
--- NOTE | 2019-10-26 19:04 | REP ---
CT chest with IV contrast: History: Differentiate mediastinal mass. Status post recent coronary artery bypass graft procedure. Comparison is made with today's chest x-ray and prior portable chest which was preoperative taken on in October 04, 2019. CT contrast dose: 75 ml of intravenous Isovue [address] findings: Preliminary digital infusion rn radiograph demonstrates prominent swelling of the right paratracheal region of the mediastinum. Pacemaker is noted in place. Median sternotomy wires are seen. On axial imaging, there are bilateral pleural effusions which are small, right a little larger than left. Four-chamber cardiomegaly is observed. There is a small amount of pericardial fluid. There is a there is a fairly homogeneous attenuation oval-shaped right paratracheal mediastinal mass. This measures 6.5 cm craniocaudal x 6.4 cm right to left x 5.6 cm anterior to posterior. It is fairly homogeneous in attenuation with proximally 26 mean Hounsfield unit density. This is more most compatible with a postoperative hematoma given that it was not present on the study done 3 weeks prior which was preop. The aorta and its branches appear intact. The hematoma is posterior to the right superior vena cava and lateral to the right trachea and esophagus. There is a minimal amount of fluid in the retrosternal soft tissues. No other hematoma is seen. There is compressive atelectasis in the lower lobes of the lungs bilaterally. Lung stephenson are otherwise clear. There is also evidence of a filling defect in a mildly dilated internal jugular vein on the right indicating nonocclusive thrombosis of the right internal jugular vein. The study is otherwise unremarkable. Impression: There is evidence of a 6.5 cm right paratracheal mediastinal hematoma. There are small bilateral pleural and a very small pericardial effusion. 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 The patient is status post recent median sternotomy. A left-sided transvenous pacemaker is noted in place. Electronically Signed by Troy Altman MD 10/27/2019 09:31 A
[2019-10-26] MEDS: IPRATROPIUM 0.5MG/ALBUTEROL 2.5MG INH SOL UD 3ML (DUONEB)(J7620) NEB SCH (19:45)
[2019-10-26 20:00] VITALS: BP 134/62
[2019-10-26] MEDS: LIDOCAINE 5% (LIDODERM) PATCH TD SCH (22:07)
[2019-10-26] MEDS: TAMSULOSIN 0.4 MG CAP PO SCH (22:07)
[2019-10-26] MEDS: SENNA 8.6 MG TAB (SENOKOT) PO SCH (22:08)
[2019-10-26] MEDS: CETIRIZINE (ZyrTEC) 10 MG TAB PO SCH (22:08)
[2019-10-27 06:00] VITALS: BP 130/63
[2019-10-27 06:46] LABS: BASO % 0.5 % (0.0-1.0); EOS # 0.4 10^3/uL (0.0-0.5); EOS % 4.6 % (0.0-3.0); HEMATOCRIT 27.8 % (42.0-52.0); HEMOGLOBIN 8.3 g/dl (13.5-17.5); LYMPH # 1.3 10^3/uL (1.5-5.0); LYMPH % 15.1 % (24.0-44.0); MEAN CORPUSCULAR HEMOGLOBIN 27.7 pg (27.0-33.0); MEAN CORPUSCULAR HGB CONC 29.9 g/dl (32.0-36.5); MEAN CORPUSCULAR VOLUME 92.7 fl (80.0-96.0); MONO # 1.1 10^3/uL (0.0-0.8); MONO % 13.2 % (0.0-5.0); NEUTROPHILS # 5.4 10^3/uL (1.5-8.5); NEUTROPHILS % 65.3 % (36.0-66.0); PLATELET COUNT, AUTOMATED 551 10^3/uL (150-450); WHITE BLOOD COUNT 8.3 10^3/uL (4.0-10.0)
[2019-10-27 07:05] LABS: INR 2.32; PROTHROMBIN TIME 25.3 SECONDS (11.8-14.0)
[2019-10-27] MEDS: IPRATROPIUM 0.5MG/ALBUTEROL 2.5MG INH SOL UD 3ML (DUONEB)(J7620) NEB SCH ×4 (07:50→20:40)
[2019-10-27] MEDS: CLOPIDOGREL 75 MG TAB PO SCH (08:41)
[2019-10-27] MEDS: guaiFENesin 200 MG TAB PO SCH ×3 (08:41→20:28)
[2019-10-27] MEDS: ROSUVASTATIN 10 MG TAB (CRESTOR) PO SCH (08:41)
[2019-10-27] MEDS: DOCUSATE SODIUM 100 MG CAP PO SCH ×2 (08:41→20:27)
[2019-10-27] MEDS: allopurinoL 300 MG TAB PO SCH (08:41)
[2019-10-27] MEDS: METOPROLOL TART 50 MG TAB PO SCH ×2 (08:42→20:27)
[2019-10-27] MEDS: LISINOPRIL *2.5 MG* TAB PO SCH (08:42)
[2019-10-27] MEDS: POTASSIUM CHLORIDE 10 MEQ SR TABLET PO SCH (08:42)
[2019-10-27] MEDS: FOLIC ACID 1 MG TAB PO SCH (08:42)
[2019-10-27] MEDS: ASPIRIN 81 MG ENTERIC TAB PO SCH (08:42)
[2019-10-27] MEDS: CEFDINIR 300 MG CAP (OMNICEF) PO SCH ×2 (08:42→20:28)
[2019-10-27] MEDS: FUROSEMIDE 20 MG TAB PO SCH (08:43)
[2019-10-27] MEDS: FERROUS SULFATE 325MG TAB PO SCH ×2 (08:43→20:27)
[2019-10-27] MEDS: ASCORBIC ACID 500 MG TAB PO SCH (08:43)
[2019-10-27] MEDS: PANTOPRAZOLE 40MG TAB (PROTONIX) PO SCH ×2 (08:43→20:28)
[2019-10-27] MEDS: **NOTE PATIENT COMMENT** MISC XX SCH (08:44)
[2019-10-27] MEDS: ACETAMINOPHEN 500 MG TAB PO SCH ×3 (08:44→20:28)
[2019-10-27] MEDS: POLYVINYL ALCOHOL OPHTH SOLN 15 ML(LIQUITEARS) OU SCH ×3 (08:45→20:28)
--- NOTE | 2019-10-27 12:07 | IPNPDOC ---
PM&R Progress Note DATE OF SERVICE: Oct 27, 2019 [employer] Progress Note Subjective: Patient reporting he slept well, feels he is breathing better, and denies any worsening of cough. REVIEW OF SYSTEMS: The following is a completed review of systems and has been reviewed. Review of systems otherwise unremarkable. PAIN: Patient self reports no pain EYES: No recent vision changes EARS, NOSE, & THROAT: No throat pain, or dysphagia, or rhinorrhea CARDIOVASCULAR: Denies chest pain or palpitations PULMONARY: Denies shortness of breath at rest, +exertional dyspnea (improving) GASTROINTESTINAL: Denies constipation/diarrhea GENITOURINARY: denies dysuria MUSCULOSKELETAL: generalized weakness NEUROLOGICAL:denies focal tremor or seizure activity HEMATOLOGICAL: denies easy bruising SKIN: sternal and chest wall incision PSYCHIATRIC: Unremarkable All other review of systems found to be negative. PHYSICAL EXAMINATION: VITAL SIGNS: Please see below. GENERAL: Pleasant and cooperative. No acute distress. HEENT: PERRL. Extraocular movements intact. Clear conjunctiva CARDIOVASCULAR: Regular rate and rhythm. No murmurs, rubs, or gallops LUNGS: Clear to auscultation bilaterally. No wheezes. No rhonchi, diminished at the bases ABDOMEN: Soft, nontender, nondistended. Positive bowel sounds. Normal active bowel sounds NEUROLOGICAL: Alert and oriented times three. Cranial nerves II through XII grossly intact. Sensation grossly intact in all 4 extremities EXTREMITIES: 5\\5 strength bilateral upper extremities. 5\\5 strength right lower extremity. 5/5 strength in left lower extremity. +bilat LE edema SKIN: sternal incision c/d/i, pacemaker incision c/d/i right calf with bruising, erythematous, and mildly TTP ASSESSMENT:79-year-old M with past medical history of HTN, CAD who presents status post CABGx6 complicated by long hospital course with generalized weakness and cardiac deconditioning PLAN: 1. Rehab- PT, OT advance gait training and endurance using energy conservation techniques-sternal and pacemaker precautions -goal max-exertion RPE 4-5 2.Cardiac: s/p CABGx6 and pacemaker in setting of newly diagnoses afib with tach -abundio syndrome-c/u metoprolol, ASA, Plavix, and Coumadin goal INR 2-3, medicine consulted to assist in management -will refer to cardiac rehab -HTN and systolic CHF with EF 40-45% c/u lisinopril, will increase lasix to 40mg daily and acewrap for LE edema, c/u fluid restrict, daily weights -HLD c/u statin 3. Resp: monitor for infection, patient with mild cough-improving, c/u Duonebs and guaifenasin -CXR 10-26-19 showing bilateral pleural effusions with new left lower lobe opacity, and "New right paratracheal mediastinal mass status post recent sternotomy with pacemaker"- patient without leukocytosis or fever, discussed with medicine, patient afebrile and without leukocytosis, will monitor for now, low suspicion for active pneumonia -CT Chest with contrast confirmed mass is a hematoma, discussed case with [facility] radiology who could not do CT-CT comparison, but was able to compare X-ray-X-ray and said is was about the same size -will consider repeat CT chest to monitor size of hematoma if Hgb drops or if patient reports chest pain while on DAPT and Coumadin, it is likely normal post- op changes that will reabsorb on its own 4. ID: c/u Cefdinir for RLE cellulitis, monitor for worsening infection- improving 5. RHeum: hx of gout, c/u allopurinol 6. DVT ppx: on coumadin, RIJ DVT on coumadin 7. GI ppx: protonix BID- ordered FOBT while on DAPT and Coumadin 8. Pain: tylneol prn 9. Dispo: TBD Allergies Coded Allergies: No Known Allergies (Unverified , 07/13/13) Vital Signs Vital Signs Date Time Temp Pulse Resp B/P (MAP) Pulse Ox O2 Delivery O2 Flow Rate FiO2 10/27/19 08:42 72 10/27/19 08:42 122/60 10/27/19 06:00 98.0 18 95 Room Air Laboratory Data CBC/BMP Laboratory Tests 10/27/19 06:26 Labs 24H Laboratory Tests 2 10/27/19 06:26: Immature Granulocyte % (Auto) 1.3, Neutrophils (%) (Auto) 65.3, Lymphocytes (%) (Auto) 15.1L, Monocytes (%) (Auto) 13.2H, Eosinophils (%) (Auto) 4.6H, Basophils (%) (Auto) 0.5, Neutrophils # (Auto) 5.4, Lymphocytes # (Auto) 1.3L, Monocytes # (Auto) 1.1H, Eosinophils # (Auto) 0.4, Basophils # (Auto) 0.0, Nucleated Red Blood Cells % (auto) 0.0, Prothrombin Time 25.3H, Prothromb Time International Ratio 2.32 Microbiology Microbiology 10/26/19 Respiratory Virus Panel (PCR) ([facility]) - Final, Complete Current Medications Current Medications Current Medications Medications (Trade) Dose Ordered Sig/Rohit Route PRN Reason Start Time Stop Time Status Last Admin Dose Admin Acetaminophen (Tylenol Tab) 1,000 mg TID PO 10/25/19 16:00 10/27/19 08:44 Albuterol/ Ipratropium (Duoneb (Ipr 0.5mg/Alb 2.5mg)) 3 ml RQID NEB 10/26/19 18:00 10/27/19 07:50 Allopurinol (Zyloprim) 300 mg DAILY PO 10/26/19 09:00 10/27/19 08:41 Artificial Tears (Akwa Tears) 2 drop TID OU 10/25/19 16:00 10/27/19 08:45 Ascorbic Acid (Vitamin C) 500 mg DAILY PO 10/26/19 09:00 10/27/19 08:43 Aspirin (Ecotrin) 81 mg DAILY PO 10/26/19 09:00 10/27/19 08:42 Bisacodyl (Dulcolax Suppository) 10 mg DAILYPRN PRN MT CONSTIPATION 10/25/19 13:00 Cefdinir (Omnicef) 300 mg BID PO 10/25/19 21:00 10/27/19 08:42 Cetirizine HCl (ZyrTEC) 10 mg QHS PO 10/25/19 21:00 10/26/19 22:08 Clopidogrel Bisulfate (PLAVix) 75 mg DAILY PO 10/26/19 09:00 10/27/19 08:41 Docusate Sodium (Colace) 100 mg BID PO 10/25/19 21:00 10/27/19 08:41 Ferrous Sulfate (Ferrous Sulfate) 325 mg BID PO 10/25/19 21:00 10/27/19 08:43 Folic Acid (Folic Acid) 1 mg DAILY PO 10/26/19 09:00 10/27/19 08:42 Furosemide (Lasix) 20 mg DAILY PO 10/26/19 09:00 10/31/19 21:00 10/27/19 08:43 Guaifenesin (Robitussin Tab) 400 mg TID PO 10/26/19 16:00 10/27/19 08:41 Home Med (Med Rec Complete!) ASDIRECTED XX 10/25/19 14:00 10/25/19 13:55 DC Ipratropium [place] (Atrovent 0.02%) 0.5 mg RTID INH 10/25/19 20:00 10/26/19 17:58 DC 10/25/19 20:36 Lidocaine (Lidoderm Patch) 2 patch QHS TD 10/25/19 21:00 10/26/19 22:07 Lisinopril (Prinivil) 2.5 mg DAILY PO 10/26/19 09:00 10/27/19 08:42 Metoprolol Tartrate (Lopressor) 50 mg BID PO 10/25/19 21:00 10/27/19 08:42 Non-Formulary Medication ( See Comment Field Below ) REMOVE LIDODERM PATCH DAILY@0900 XX 10/26/19 09:00 10/27/19 08:44 Pantoprazole Sodium (Protonix) 40 mg DAILY PO 10/26/19 09:00 10/27/19 08:43 Polyethylene Glycol (Miralax) 1 pkt DAILY PRN PO CONSTIPATION 10/25/19 13:00 Potassium Chloride (Micro-K Extencaps) 10 meq DAILY PO 10/26/19 09:00 10/31/19 21:00 10/27/19 08:42 Rosuvastatin Calcium (Crestor) 20 mg DAILY PO 10/26/19 09:00 10/27/19 08:41 Senna (Senokot) 1 tab QHS PO 10/25/19 21:00 10/26/19 22:08 Tamsulosin HCl (Flomax) 0.4 mg QHS PO 10/25/19 21:00 10/26/19 22:07 Trazodone HCl (Desyrel) 25 mg QHSP PRN PO INSOMNIA 10/25/19 16:45 10/26/19 01:39 Warfarin Sodium (Coumadin) 2.5 mg DAILY@17 PO 10/25/19 17:00 10/26/19 17:38 LIGIA RICH MD Oct 27, 2019 12:07
[2019-10-27 14:00] VITALS: BP 142/68
--- NOTE | 2019-10-27 15:50 | IPNPDOC ---
Date Seen The patient was seen on 10/27/19. Progress Note SUBJECTIVE: Patient appears well and reports feeling fine. Cough still noted to be persistent but otherwise denies any other complaints. Afebrile overnight, saturating well on room air. OBJECTIVE PHYSICAL EXAMINATION: VITAL SIGNS: Please see below. General: No acute distress, Alert Eyes: Normal sclera, EOMI HENT: Atraumatic Cardiovascular: Normal rate, normal rhythm. Pulmonary: Clear to auscultation b/l, no wheezing GI: Soft, nontender, nondistended Skin: midline anterior chest incision noted clean with no leakage nor erythema. Neuro: CN grossly intact. No focal deficits. Psych: oriented x 3 LABORATORY DATA: Please see below. ASSESSMENT/PLAN: 1. CAD s/p CABG - c/w DAPT: ASA, Plavix - No active chest discomfort. 2. Generalized weakness - c/w rehab per ARU. 3. Prostate ca - s/p prostatectomy 4. HTN - c/w lisinopril and metoprolol. 5. gout - c/w allopurinol 6. 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 - Swelling reported improving with no significant erythema around site. 7. Afib - On warfarin. - Monitor INR. 8. HFrEF - EF 40-45%. - c/w ACEI, lasix, metoprolol. 9. Cough - suspect bronchitis. CXR shows mild haziness but does not appear to show a clear infiltrate. - Patient does not show clinical evidence of pneumonia that requires antibiotic treatment in my opinion. - Remains afebrile with no leukocytosis. Symptomatic treatment for cough. - Should patient develops evidence of infection, would consider treating for PNA then. - CT chest shows paratracheal mediastinal hematoma likely 2/2 surgery. XR performed here appear to be unchanged from previous. DVT ppx: warfarin VS, I&O, 24H, Fishbone Vital Signs/I&O Vital Signs Date Time Temp Pulse Resp B/P (MAP) Pulse Ox O2 Delivery O2 Flow Rate FiO2 10/27/19 14:00 97.9 70 18 142/68 (92) 100 Room Air I&O- Last 24 Hours up to 6 AM 10/27/19 06:00 Intake Total 870 ml Balance 870 ml Laboratory Data 24H LABS Laboratory Tests 2 10/27/19 06:26: Immature Granulocyte % (Auto) 1.3, Neutrophils (%) (Auto) 65.3, Lymphocytes (%) (Auto) 15.1L, Monocytes (%) (Auto) 13.2H, Eosinophils (%) (Auto) 4.6H, Basophils (%) (Auto) 0.5, Neutrophils # (Auto) 5.4, Lymphocytes # (Auto) 1.3L, Monocytes # (Auto) 1.1H, Eosinophils # (Auto) 0.4, Basophils # (Auto) 0.0, Nucleated Red Blood Cells % (auto) 0.0, Prothrombin Time 25.3H, Prothromb Time International Ratio 2.32 CBC/BMP Laboratory Tests 10/27/19 06:26 Microbiology Microbiology 10/26/19 Respiratory Virus Panel (PCR) ([facility]) - Final, Complete DALLIN RASHEED MD Oct 27, 2019 15:50
[2019-10-27] MEDS: WARFARIN SOD 2.5 MG TAB PO SCH (16:43)
[2019-10-27 20:00] VITALS: BP 149/71
[2019-10-27] MEDS: SENNA 8.6 MG TAB (SENOKOT) PO SCH (20:27)
[2019-10-27] MEDS: CETIRIZINE (ZyrTEC) 10 MG TAB PO SCH (20:28)
[2019-10-27] MEDS: TAMSULOSIN 0.4 MG CAP PO SCH (20:28)
[2019-10-27] MEDS: LIDOCAINE 5% (LIDODERM) PATCH TD SCH (20:29)
[2019-10-28 05:19] VITALS: BP 129/64
[2019-10-28 07:05] LABS: HEMATOCRIT 26.1 % (42.0-52.0); HEMOGLOBIN 7.8 g/dl (13.5-17.5); MEAN CORPUSCULAR HEMOGLOBIN 27.7 pg (27.0-33.0); MEAN CORPUSCULAR HGB CONC 29.9 g/dl (32.0-36.5); MEAN CORPUSCULAR VOLUME 92.6 fl (80.0-96.0); PLATELET COUNT, AUTOMATED 526 10^3/uL (150-450); RED BLOOD COUNT 2.82 10^6/uL (4.30-6.10); WHITE BLOOD COUNT 6.8 10^3/uL (4.0-10.0)
[2019-10-28 07:18] LABS: INR 2.55; PROTHROMBIN TIME 27.3 SECONDS (11.8-14.0)
[2019-10-28 07:31] LABS: BLOOD UREA NITROGEN 15 MG/DL (7-18); CALCIUM LEVEL 7.9 MG/DL (8.8-10.2); CARBON DIOXIDE LEVEL 30 MEQ/L (21-32); CHLORIDE LEVEL 105 MEQ/L (98-107); CREATININE FOR GFR 1.03 MG/DL (0.70-1.30); GLOMERULAR FILTRATION RATE > 60.0 (>42); GLUCOSE, FASTING 96 MG/DL (70-100); POTASSIUM SERUM 4.1 MEQ/L (3.5-5.1); SODIUM LEVEL 141 MEQ/L (136-145)
[2019-10-28] MEDS: IPRATROPIUM 0.5MG/ALBUTEROL 2.5MG INH SOL UD 3ML (DUONEB)(J7620) NEB SCH ×4 (07:31→19:40)
[2019-10-28] MEDS: PANTOPRAZOLE 40MG TAB (PROTONIX) PO SCH ×2 (08:42→20:39)
[2019-10-28] MEDS: guaiFENesin 200 MG TAB PO SCH ×3 (08:42→20:38)
[2019-10-28] MEDS: LISINOPRIL *2.5 MG* TAB PO SCH (08:42)
[2019-10-28] MEDS: ROSUVASTATIN 10 MG TAB (CRESTOR) PO SCH (08:43)
[2019-10-28] MEDS: ACETAMINOPHEN 500 MG TAB PO SCH ×3 (08:43→20:38)
[2019-10-28] MEDS: ASCORBIC ACID 500 MG TAB PO SCH (08:43)
[2019-10-28] MEDS: POTASSIUM CHLORIDE 10 MEQ SR TABLET PO SCH (08:43)
[2019-10-28] MEDS: METOPROLOL TART 50 MG TAB PO SCH ×2 (08:43→20:39)
[2019-10-28] MEDS: DOCUSATE SODIUM 100 MG CAP PO SCH ×2 (08:43→20:38)
[2019-10-28] MEDS: CEFDINIR 300 MG CAP (OMNICEF) PO SCH ×2 (08:44→20:44)
[2019-10-28] MEDS: allopurinoL 300 MG TAB PO SCH (08:44)
[2019-10-28] MEDS: ASPIRIN 81 MG ENTERIC TAB PO SCH (08:44)
[2019-10-28] MEDS: FERROUS SULFATE 325MG TAB PO SCH ×2 (08:44→20:39)
[2019-10-28] MEDS: CLOPIDOGREL 75 MG TAB PO SCH (08:44)
[2019-10-28] MEDS: FUROSEMIDE 20 MG TAB PO SCH (08:44)
[2019-10-28] MEDS: FOLIC ACID 1 MG TAB PO SCH (08:44)
[2019-10-28] MEDS: **NOTE PATIENT COMMENT** MISC XX SCH (08:45)
[2019-10-28] MEDS: POLYVINYL ALCOHOL OPHTH SOLN 15 ML(LIQUITEARS) OU SCH ×3 (08:45→20:40)
[2019-10-28 11:42] VITALS: BP 132/78
[2019-10-28 14:00] VITALS: BP 137/66
[2019-10-28 14:46] VITALS: BP 134/78
[2019-10-28 15:28] LABS: HEMATOCRIT 28.9 % (42.0-52.0); HEMOGLOBIN 8.7 g/dl (13.5-17.5)
[2019-10-28] MEDS: WARFARIN SOD 2.5 MG TAB PO SCH (16:16)
--- NOTE | 2019-10-28 17:55 | IPNPDOC ---
Date Seen The patient was seen on 10/28/19. Progress Note SUBJECTIVE: Patient states that his cough seems better today and that he feels well. Afebrile overnight, saturating well on room air. OBJECTIVE PHYSICAL EXAMINATION: VITAL SIGNS: Please see below. General: No acute distress, Alert Eyes: Normal sclera, EOMI HENT: Atraumatic Cardiovascular: Normal rate, normal rhythm. 1+ pitting edema LLE, 2+ pitting edema RLE. Pulmonary: Clear to auscultation b/l, no wheezing GI: Soft, nontender, nondistended Skin: midline anterior chest incision noted clean with no leakage nor erythema. Neuro: CN grossly intact. No focal deficits. Psych: oriented x 3 LABORATORY DATA: Please see below. ASSESSMENT/PLAN: 1. CAD s/p CABG - c/w DAPT: ASA, Plavix - No active chest discomfort. 2. Generalized weakness - c/w rehab per ARU. 3. Prostate ca - s/p prostatectomy 4. HTN - c/w lisinopril and metoprolol. 5. gout - c/w allopurinol 6. 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 - Swelling reported improving with no significant erythema around site. 7. Afib - On warfarin. - Monitor INR. 8. HFrEF - EF 40-45%. - c/w ACEI, lasix, metoprolol. 9. Cough - suspect bronchitis. CXR shows mild haziness but does not appear to show a clear infiltrate. - Patient does not show clinical evidence of pneumonia that requires antibiotic treatment in my opinion. - Remains afebrile with no leukocytosis. Symptomatic treatment for cough. - Should patient develops evidence of infection, would consider treating for PNA then. - CT chest shows paratracheal mediastinal hematoma likely 2/2 surgery. XR performed here appear to be unchanged from previous. DVT ppx: warfarin VS, I&O, 24H, Fishbone Vital Signs/I&O Vital Signs Date Time Temp Pulse Resp B/P (MAP) Pulse Ox O2 Delivery O2 Flow Rate FiO2 10/28/19 14:46 134/78 (96) 10/28/19 14:00 97.0 76 18 96 Room Air I&O- Last 24 Hours up to 6 AM 10/28/19 06:00 Intake Total 1130 ml Balance 1130 ml Laboratory Data 24H LABS Laboratory Tests 2 10/28/19 06:36: Prothrombin Time 27.3H, Prothromb Time International Ratio 2.55, Anion Gap 6L, Glomerular Filtration Rate > 60.0, Calcium Level 7.9L 10/28/19 06:37: Nucleated Red Blood Cells % (auto) 0.0 CBC/BMP Laboratory Tests 10/28/19 06:36 10/28/19 06:37 10/28/19 15:15 Microbiology Microbiology 10/28/19 Stool Occult Blood ([facility]) - Final, Complete 10/28/19 Gram Stain - Final, Resulted 10/28/19 Sputum Culture, Resulted Pending 10/26/19 Respiratory Virus Panel (PCR) ([facility]) - Final, Complete DALLIN RASHEED MD Oct 28, 2019 17:55
[2019-10-28 20:00] VITALS: BP 104/64
[2019-10-28] MEDS: SENNA 8.6 MG TAB (SENOKOT) PO SCH (20:38)
[2019-10-28] MEDS: TAMSULOSIN 0.4 MG CAP PO SCH (20:38)
[2019-10-28] MEDS: CETIRIZINE (ZyrTEC) 10 MG TAB PO SCH (20:38)
[2019-10-28] MEDS: LIDOCAINE 5% (LIDODERM) PATCH TD SCH (20:39)
[2019-10-29 06:00] VITALS: BP 143/70
[2019-10-29 06:44] LABS: BASO % 0.6 % (0.0-1.0); EOS # 0.4 10^3/uL (0.0-0.5); EOS % 5.7 % (0.0-3.0); HEMATOCRIT 26.4 % (42.0-52.0); HEMOGLOBIN 8.3 g/dl (13.5-17.5); LYMPH # 1.1 10^3/uL (1.5-5.0); MEAN CORPUSCULAR HEMOGLOBIN 28.6 pg (27.0-33.0); MEAN CORPUSCULAR HGB CONC 31.4 g/dl (32.0-36.5); MONO # 0.8 10^3/uL (0.0-0.8); MONO % 12.4 % (0.0-5.0); NEUTROPHILS % 63.2 % (36.0-66.0); PLATELET COUNT, AUTOMATED 505 10^3/uL (150-450); WHITE BLOOD COUNT 6.4 10^3/uL (4.0-10.0)
[2019-10-29 07:02] LABS: INR 2.09; PROTHROMBIN TIME 23.3 SECONDS (11.8-14.0)
[2019-10-29] MEDS: IPRATROPIUM 0.5MG/ALBUTEROL 2.5MG INH SOL UD 3ML (DUONEB)(J7620) NEB SCH ×4 (07:55→19:39)
[2019-10-29] MEDS: ASCORBIC ACID 500 MG TAB PO SCH (09:25)
[2019-10-29] MEDS: POTASSIUM CHLORIDE 10 MEQ SR TABLET PO SCH (09:25)
[2019-10-29] MEDS: guaiFENesin 200 MG TAB PO SCH ×3 (09:25→20:18)
[2019-10-29] MEDS: DOCUSATE SODIUM 100 MG CAP PO SCH ×2 (09:25→20:17)
[2019-10-29] MEDS: FUROSEMIDE 20 MG TAB PO SCH (09:26)
[2019-10-29] MEDS: ASPIRIN 81 MG ENTERIC TAB PO SCH (09:26)
[2019-10-29] MEDS: PANTOPRAZOLE 40MG TAB (PROTONIX) PO SCH ×2 (09:26→20:17)
[2019-10-29] MEDS: CEFDINIR 300 MG CAP (OMNICEF) PO SCH ×2 (09:26→20:18)
[2019-10-29] MEDS: allopurinoL 300 MG TAB PO SCH (09:26)
[2019-10-29] MEDS: FOLIC ACID 1 MG TAB PO SCH (09:26)
[2019-10-29] MEDS: METOPROLOL TART 50 MG TAB PO SCH ×2 (09:26→20:18)
[2019-10-29] MEDS: CLOPIDOGREL 75 MG TAB PO SCH (09:26)
[2019-10-29] MEDS: LISINOPRIL *2.5 MG* TAB PO SCH (09:26)
[2019-10-29] MEDS: FERROUS SULFATE 325MG TAB PO SCH ×2 (09:26→20:17)
[2019-10-29] MEDS: POLYVINYL ALCOHOL OPHTH SOLN 15 ML(LIQUITEARS) OU SCH ×3 (09:27→20:19)
[2019-10-29] MEDS: **NOTE PATIENT COMMENT** MISC XX SCH (09:27)
[2019-10-29] MEDS: ACETAMINOPHEN 500 MG TAB PO SCH ×3 (09:27→20:18)
[2019-10-29] MEDS: ROSUVASTATIN 10 MG TAB (CRESTOR) PO SCH (09:27)
--- NOTE | 2019-10-29 11:38 | IPNPDOC ---
Date Seen The patient was seen on 10/29/19. Progress Note SUBJECTIVE: Patient states that coughing is persistent when he tries to talk but he overall continues to feel better and stronger each day. Afebrile overnight. WBC 6.4. OBJECTIVE PHYSICAL EXAMINATION: VITAL SIGNS: Please see below. General: No acute distress, Alert Eyes: Normal sclera, EOMI HENT: Atraumatic Cardiovascular: Normal rate, normal rhythm. 1+ pitting edema LLE, 2+ pitting edema RLE. Pulmonary: Clear to auscultation b/l, no wheezing GI: Soft, nontender, nondistended Skin: midline anterior chest incision noted clean with no leakage nor erythema. Neuro: CN grossly intact. No focal deficits. Psych: oriented x 3 LABORATORY DATA: Please see below. ASSESSMENT/PLAN: 1. CAD s/p CABG - c/w DAPT: ASA, Plavix - No active chest discomfort. 2. Generalized weakness - c/w rehab per ARU. 3. Prostate ca - s/p prostatectomy 4. HTN - c/w lisinopril and metoprolol. 5. gout - c/w allopurinol 6. 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 - Swelling reported improving with no significant erythema around site. 7. Afib - On warfarin. - Monitor INR. 8. HFrEF - EF 40-45%. - c/w ACEI, lasix, metoprolol. 9. Cough - suspect bronchitis. CXR shows mild haziness but does not appear to show a clear infiltrate. - Patient does not show clinical evidence of pneumonia that requires antibiotic treatment in my opinion. - Remains afebrile with no leukocytosis. Symptomatic treatment for cough. - Should patient develops evidence of infection, would consider treating for PNA then. - CT chest shows paratracheal mediastinal hematoma likely 2/2 surgery. XR performed here appear to be unchanged from previous. DVT ppx: warfarin VS, I&O, 24H, Fishbone Vital Signs/I&O Vital Signs Date Time Temp Pulse Resp B/P (MAP) Pulse Ox O2 Delivery O2 Flow Rate FiO2 10/29/19 09:26 78 143/70 10/29/19 06:00 96.7 18 91 Room Air I&O- Last 24 Hours up to 6 AM 10/29/19 06:00 Intake Total 1380 ml Output Total 0 ml Balance 1380 ml Laboratory Data 24H LABS Laboratory Tests 2 10/29/19 06:29: Immature Granulocyte % (Auto) 1.1, Neutrophils (%) (Auto) 63.2, Lymphocytes (%) (Auto) 17.0L, Monocytes (%) (Auto) 12.4H, Eosinophils (%) (Auto) 5.7H, Basophils (%) (Auto) 0.6, Neutrophils # (Auto) 4.0, Lymphocytes # (Auto) 1.1L, Monocytes # (Auto) 0.8, Eosinophils # (Auto) 0.4, Basophils # (Auto) 0.0, Nucleated Red Blood Cells % (auto) 0.0, Prothrombin Time 23.3H, Prothromb Time International Ratio 2.09 CBC/BMP Laboratory Tests 10/28/19 15:15 10/29/19 06:29 Microbiology Microbiology 10/28/19 Stool Occult Blood ([facility]) - Final, Complete 10/28/19 Gram Stain - Final, Resulted 10/28/19 Sputum Culture, Resulted Pending 10/26/19 Respiratory Virus Panel (PCR) ([facility]) - Final, Complete DALLIN RASHEED MD Oct 29, 2019 11:38
[2019-10-29 14:00] VITALS: BP 131/60
[2019-10-29] MEDS: WARFARIN SOD 2.5 MG TAB PO SCH (17:17)
[2019-10-29 20:00] VITALS: BP 127/58
[2019-10-29] MEDS: SENNA 8.6 MG TAB (SENOKOT) PO SCH (20:17)
[2019-10-29] MEDS: TAMSULOSIN 0.4 MG CAP PO SCH (20:17)
[2019-10-29] MEDS: LIDOCAINE 5% (LIDODERM) PATCH TD SCH (20:17)
[2019-10-29] MEDS: CETIRIZINE (ZyrTEC) 10 MG TAB PO SCH (20:17)
[2019-10-30 06:00] VITALS: BP 145/82
[2019-10-30 07:22] LABS: INR 1.66; PROTHROMBIN TIME 19.4 SECONDS (11.8-14.0)
[2019-10-30] MEDS: IPRATROPIUM 0.5MG/ALBUTEROL 2.5MG INH SOL UD 3ML (DUONEB)(J7620) NEB SCH ×4 (07:58→17:29)
[2019-10-30] MEDS: CEFDINIR 300 MG CAP (OMNICEF) PO SCH ×2 (08:30→20:30)
[2019-10-30] MEDS: FERROUS SULFATE 325MG TAB PO SCH ×2 (08:30→20:31)
[2019-10-30] MEDS: PANTOPRAZOLE 40MG TAB (PROTONIX) PO SCH ×2 (08:30→20:31)
[2019-10-30] MEDS: CLOPIDOGREL 75 MG TAB PO SCH (08:30)
[2019-10-30] MEDS: ASCORBIC ACID 500 MG TAB PO SCH (08:30)
[2019-10-30] MEDS: POTASSIUM CHLORIDE 10 MEQ SR TABLET PO SCH (08:30)
[2019-10-30] MEDS: allopurinoL 300 MG TAB PO SCH (08:30)
[2019-10-30] MEDS: LISINOPRIL *2.5 MG* TAB PO SCH (08:31)
[2019-10-30] MEDS: METOPROLOL TART 50 MG TAB PO SCH ×2 (08:31→20:31)
[2019-10-30] MEDS: ROSUVASTATIN 10 MG TAB (CRESTOR) PO SCH (08:31)
[2019-10-30] MEDS: FUROSEMIDE 20 MG TAB PO SCH (08:31)
[2019-10-30] MEDS: FOLIC ACID 1 MG TAB PO SCH (08:31)
[2019-10-30] MEDS: DOCUSATE SODIUM 100 MG CAP PO SCH ×2 (08:31→20:31)
[2019-10-30] MEDS: ASPIRIN 81 MG ENTERIC TAB PO SCH (08:31)
[2019-10-30] MEDS: POLYVINYL ALCOHOL OPHTH SOLN 15 ML(LIQUITEARS) OU SCH ×3 (08:32→20:33)
[2019-10-30] MEDS: ACETAMINOPHEN 500 MG TAB PO SCH ×3 (08:32→20:32)
[2019-10-30] MEDS: **NOTE PATIENT COMMENT** MISC XX SCH (08:32)
[2019-10-30] MEDS: guaiFENesin 200 MG TAB PO SCH ×3 (09:27→20:31)
--- NOTE | 2019-10-30 10:20 | IPNPDOC ---
Date Seen The patient was seen on 10/30/19. Progress Note SUBJECTIVE: Patient reports that his cough is less than yesterday but still has occasional bouts. Remain afebrile overnight and saturating well on RA. OBJECTIVE PHYSICAL EXAMINATION: VITAL SIGNS: Please see below. General: No acute distress, Alert Eyes: Normal sclera, EOMI HENT: Atraumatic Cardiovascular: Normal rate, normal rhythm. Pulmonary: Clear to auscultation b/l, no wheezing GI: Soft, nontender, nondistended Skin: midline anterior chest incision noted clean with no leakage nor erythema. Neuro: CN grossly intact. No focal deficits. Psych: oriented x 3 LABORATORY DATA: Please see below. ASSESSMENT/PLAN: 1. CAD s/p CABG - c/w DAPT: ASA, Plavix - No active chest discomfort. 2. Generalized weakness - c/w rehab per ARU. 3. Prostate ca - s/p prostatectomy 4. HTN - c/w lisinopril and metoprolol. 5. gout - c/w allopurinol 6. 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 - Swelling reported improving with no significant erythema around site. 7. Afib - On warfarin. - Monitor INR. 8. HFrEF - EF 40-45%. - c/w ACEI, lasix, metoprolol. 9. Cough - suspect bronchitis. CXR shows mild haziness but does not appear to show a clear infiltrate. - Patient does not show clinical evidence of pneumonia that requires antibiotic treatment in my opinion. - Remains afebrile with no leukocytosis. Symptomatic treatment for cough. - Should patient develops evidence of infection, would consider treating for PNA then. - CT chest shows paratracheal mediastinal hematoma likely 2/2 surgery. XR performed here appear to be unchanged from previous. DVT ppx: warfarin VS, I&O, 24H, Fishbone Vital Signs/I&O Vital Signs Date Time Temp Pulse Resp B/P (MAP) Pulse Ox O2 Delivery O2 Flow Rate FiO2 10/30/19 08:31 74 145/82 10/30/19 06:00 97.2 18 95 Room Air I&O- Last 24 Hours up to 6 AM 10/30/19 06:00 Intake Total 1180 ml Balance 1180 ml Laboratory Data 24H LABS Laboratory Tests 2 10/30/19 06:38: Prothrombin Time 19.4H, Prothromb Time International Ratio 1.66 Microbiology Microbiology 10/28/19 Stool Occult Blood (TRUDY) - Final, Complete 10/28/19 Gram Stain - Final, Resulted 10/28/19 Sputum Culture, Resulted Pending 10/26/19 Respiratory Virus Panel (PCR) (TRUDY) - Final, Complete DALLIN RASHEED MD Oct 30, 2019 10:20
[2019-10-30 14:00] VITALS: BP 123/65
[2019-10-30] MEDS ORDERED: WARFARIN SOD 2.5 MG TAB PO SCH (17:00)
[2019-10-30] MEDS ORDERED: WARFARIN SOD 3 MG TAB PO SCH (17:00)
[2019-10-30 20:00] VITALS: BP 154/74
[2019-10-30] MEDS: TAMSULOSIN 0.4 MG CAP PO SCH (20:31)
[2019-10-30] MEDS: SENNA 8.6 MG TAB (SENOKOT) PO SCH (20:31)
[2019-10-30] MEDS: CETIRIZINE (ZyrTEC) 10 MG TAB PO SCH (20:32)
[2019-10-30] MEDS: LIDOCAINE 5% (LIDODERM) PATCH TD SCH (20:32)
[2019-10-31 06:00] VITALS: BP 166/79
[2019-10-31] MEDS ORDERED: LevoFLOXacin 750 MG TABLET PO SCH (06:00)
[2019-10-31 06:47] LABS: BASO % 0.2 % (0.0-1.0); EOS # 0.4 10^3/uL (0.0-0.5); HEMATOCRIT 29.4 % (42.0-52.0); HEMOGLOBIN 9.2 g/dl (13.5-17.5); MEAN CORPUSCULAR HEMOGLOBIN 28.4 pg (27.0-33.0); MEAN CORPUSCULAR HGB CONC 31.3 g/dl (32.0-36.5); MEAN CORPUSCULAR VOLUME 90.7 fl (80.0-96.0); MONO # 0.8 10^3/uL (0.0-0.8); MONO % 9.1 % (0.0-5.0); NEUTROPHILS # 6.3 10^3/uL (1.5-8.5); NEUTROPHILS % 72.8 % (36.0-66.0); PLATELET COUNT, AUTOMATED 503 10^3/uL (150-450); RED BLOOD COUNT 3.24 10^6/uL (4.30-6.10); WHITE BLOOD COUNT 8.6 10^3/uL (4.0-10.0)
[2019-10-31 06:57] LABS: INR 1.44; PROTHROMBIN TIME 17.3 SECONDS (11.8-14.0)
[2019-10-31 07:20] LABS: BLOOD UREA NITROGEN 15 MG/DL (7-18); CALCIUM LEVEL 8.6 MG/DL (8.8-10.2); CARBON DIOXIDE LEVEL 28 MEQ/L (21-32); CHLORIDE LEVEL 104 MEQ/L (98-107); CREATININE FOR GFR 1.09 MG/DL (0.70-1.30); GLOMERULAR FILTRATION RATE > 60.0 (>42); GLUCOSE, FASTING 98 MG/DL (70-100); POTASSIUM SERUM 3.9 MEQ/L (3.5-5.1); SODIUM LEVEL 139 MEQ/L (136-145)
[2019-10-31] MEDS: IPRATROPIUM 0.5MG/ALBUTEROL 2.5MG INH SOL UD 3ML (DUONEB)(J7620) NEB SCH ×4 (07:26→19:31)
[2019-10-31] MEDS: ASCORBIC ACID 500 MG TAB PO SCH (08:23)
[2019-10-31] MEDS: FERROUS SULFATE 325MG TAB PO SCH ×2 (08:23→20:59)
[2019-10-31] MEDS: POTASSIUM CHLORIDE 10 MEQ SR TABLET PO SCH (08:23)
[2019-10-31] MEDS: PANTOPRAZOLE 40MG TAB (PROTONIX) PO SCH ×2 (08:23→20:59)
[2019-10-31] MEDS: DOCUSATE SODIUM 100 MG CAP PO SCH ×2 (08:23→20:57)
[2019-10-31] MEDS: guaiFENesin 200 MG TAB PO SCH ×3 (08:23→20:58)
[2019-10-31] MEDS: allopurinoL 300 MG TAB PO SCH (08:23)
[2019-10-31] MEDS: METOPROLOL TART 50 MG TAB PO SCH ×3 (08:24→20:58)
[2019-10-31] MEDS: ASPIRIN 81 MG ENTERIC TAB PO SCH (08:24)
[2019-10-31] MEDS: FOLIC ACID 1 MG TAB PO SCH (08:24)
[2019-10-31] MEDS: ROSUVASTATIN 10 MG TAB (CRESTOR) PO SCH (08:24)
[2019-10-31] MEDS: LISINOPRIL *2.5 MG* TAB PO SCH (08:24)
[2019-10-31] MEDS: FUROSEMIDE 20 MG TAB PO SCH (08:24)
[2019-10-31] MEDS: CLOPIDOGREL 75 MG TAB PO SCH (08:25)
[2019-10-31] MEDS: ACETAMINOPHEN 500 MG TAB PO SCH ×3 (08:25→20:58)
[2019-10-31] MEDS: POLYVINYL ALCOHOL OPHTH SOLN 15 ML(LIQUITEARS) OU SCH ×3 (08:25→21:01)
[2019-10-31] MEDS: **NOTE PATIENT COMMENT** MISC XX SCH (08:25)
--- NOTE | 2019-10-31 11:25 | IPNPDOC ---
PM&R Progress Note DATE OF SERVICE: Oct 28, 2019 Training And Development Project Leader Progress Note Subjective: Patient seen walking in therapy stating he feels good, denies chest pain, and has some some shortness of breath with exertion that resolves quickly. REVIEW OF SYSTEMS: The following is a completed review of systems and has been reviewed. Review of systems otherwise unremarkable. PAIN: Patient self reports no pain EYES: No recent vision changes EARS, NOSE, & THROAT: No throat pain, or dysphagia, or rhinorrhea CARDIOVASCULAR: Denies chest pain or palpitations PULMONARY: Denies shortness of breath at rest, +exertional dyspnea (improving) GASTROINTESTINAL: Denies constipation/diarrhea GENITOURINARY: denies dysuria MUSCULOSKELETAL: generalized weakness NEUROLOGICAL:denies focal tremor or seizure activity HEMATOLOGICAL: denies easy bruising SKIN: sternal and chest wall incision PSYCHIATRIC: Unremarkable All other review of systems found to be negative. PHYSICAL EXAMINATION: VITAL SIGNS: Please see below. GENERAL: Pleasant and cooperative. No acute distress. HEENT: PERRL. Extraocular movements intact. Clear conjunctiva CARDIOVASCULAR: Regular rate and rhythm. No murmurs, rubs, or gallops LUNGS: Clear to auscultation bilaterally. No wheezes. No rhonchi, diminished at the bases ABDOMEN: Soft, nontender, nondistended. Positive bowel sounds. Normal active bowel sounds NEUROLOGICAL: Alert and oriented times three. Cranial nerves II through XII grossly intact. Sensation grossly intact in all 4 extremities EXTREMITIES: 5\\5 strength bilateral upper extremities. 5\\5 strength right lower extremity. 5/5 strength in left lower extremity. +bilat LE edema SKIN: sternal incision c/d/i, pacemaker incision c/d/i right calf with bruising, erythematous, and mildly TTP ASSESSMENT:79-year-old M with past medical history of HTN, CAD who presents status post CABGx6 complicated by long hospital course with generalized weakness and cardiac deconditioning PLAN: 1. Rehab- PT, OT advance gait training and endurance using energy conservation techniques-sternal and pacemaker precautions -goal max-exertion RPE 4-5 2.Cardiac: s/p CABGx6 and pacemaker in setting of newly diagnoses afib with tach-abundio syndrome-c/u metoprolol, ASA, Plavix, and Coumadin goal INR 2-3, medicine consulted to assist in management, BP so far well controlled, patient with expected elevations on exertion with good recovery time back to baseline -will refer to cardiac rehab -HTN and systolic CHF with EF 40-45% c/u lisinopril, increased lasix to 40mg daily and acewrap for LE edema, c/u fluid restrict, daily weights -HLD c/u statin 3. 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 ID: c/u Cefdinir for RLE cellulitis, monitor for worsening infection-improving 5. RHeum: hx of gout, c/u allopurinol 6. DVT ppx: on coumadin, RIJ DVT on coumadin 7. GI ppx: protonix BID- ordered FOBT while on DAPT and Coumadin 8. Heme: patient with Hgb 7.8 today, however rechecked and 8.7, will defer blood transfusion at this time 8. Pain: tylneol prn 9. Dispo: TBD Allergies Coded Allergies: No Known Allergies (Unverified , 07/13/13) Vital Signs Vital Signs Date Time Temp Pulse Resp B/P (MAP) Pulse Ox O2 Delivery O2 Flow Rate FiO2 10/31/19 08:24 73 166/79 10/31/19 06:00 98.1 16 96 Room Air Laboratory Data CBC/BMP Laboratory Tests 10/31/19 06:19 Labs 24H Laboratory Tests 2 10/31/19 06:19: Immature Granulocyte % (Auto) 0.9, Neutrophils (%) (Auto) 72.8H, Lymphocytes (%) (Auto) 12.0L, Monocytes (%) (Auto) 9.1H, Eosinophils (%) (Auto) 5.0H, Basophils (%) (Auto) 0.2, Neutrophils # (Auto) 6.3, Lymphocytes # (Auto) 1.0L, Monocytes # (Auto) 0.8, Eosinophils # (Auto) 0.4, Basophils # (Auto) 0.0, Nucleated Red Blood Cells % (auto) 0.0, Prothrombin Time 17.3H, Prothromb Time International Ratio 1.44, Anion Gap 7L, Glomerular Filtration Rate > 60.0, Calcium Level 8.6L Microbiology Microbiology 10/28/19 Stool Occult Blood (TRUDY) - Final, Complete 10/28/19 Gram Stain - Final, Complete 10/28/19 Sputum Culture - Final, Complete Streptococcus Constellatus Yeast Like Organism 10/26/19 Respiratory Virus Panel (PCR) (TRUDY) - Final, Complete Current Medications Current Medications Current Medications Medications (Trade) Dose Ordered Sig/Rohit Route PRN Reason Start Time Stop Time Status Last Admin Dose Admin Acetaminophen (Tylenol Tab) 1,000 mg TID PO 10/25/19 16:00 10/31/19 08:25 Albuterol/ Ipratropium (Duoneb (Ipr 0.5mg/Alb 2.5mg)) 3 ml RQID NEB 10/26/19 18:00 10/30/19 17:29 Allopurinol (Zyloprim) 300 mg DAILY PO 10/26/19 09:00 10/31/19 08:23 Artificial Tears (Akwa Tears) 2 drop TID OU 10/25/19 16:00 10/31/19 08:25 Ascorbic Acid (Vitamin C) 500 mg DAILY PO 10/26/19 09:00 10/31/19 08:23 Aspirin (Ecotrin) 81 mg DAILY PO 10/26/19 09:00 10/31/19 08:24 Bisacodyl (Dulcolax Suppository) 10 mg DAILYPRN PRN [place] CONSTIPATION 10/25/19 13:00 Cefdinir (Omnicef) 300 mg BID PO 10/25/19 21:00 10/30/19 20:59 DC 10/30/19 20:30 Cetirizine HCl (ZyrTEC) 10 mg QHS PO 10/25/19 21:00 10/30/19 20:32 Clopidogrel Bisulfate (PLAVix) 75 mg DAILY PO 10/26/19 09:00 10/31/19 08:25 Docusate Sodium (Colace) 100 mg BID PO 10/25/19 21:00 10/31/19 08:23 Ferrous Sulfate (Ferrous Sulfate) 325 mg BID PO 10/25/19 21:00 10/31/19 08:23 Folic Acid (Folic Acid) 1 mg DAILY PO 10/26/19 09:00 10/31/19 08:24 Furosemide (Lasix) 20 mg DAILY PO 10/26/19 09:00 10/27/19 12:03 DC 10/27/19 08:43 Furosemide (Lasix) 40 mg DAILY PO 10/28/19 09:00 10/31/19 08:24 Guaifenesin (Robitussin Tab) 400 mg TID PO 10/26/19 16:00 10/31/19 08:23 Home Med (Med Rec Complete!) ASDIRECTED XX 10/25/19 14:00 10/25/19 13:55 DC Ipratropium [place] (Atrovent 0.02%) 0.5 mg RTID INH 10/25/19 20:00 10/26/19 17:58 DC 10/25/19 20:36 Lidocaine (Lidoderm Patch) 2 patch QHS TD 10/25/19 21:00 10/30/19 20:32 Lisinopril (Prinivil) 2.5 mg DAILY PO 10/26/19 09:00 10/31/19 09:15 DC 10/31/19 08:24 Lisinopril (Prinivil) 10 mg DAILY PO 11/01/19 09:00 Metoprolol Tartrate (Lopressor) 50 mg BID PO 10/25/19 21:00 10/31/19 09:15 DC 10/31/19 08:24 Metoprolol Tartrate (Lopressor) 50 mg TID PO 10/31/19 16:00 Non-Formulary Medication ( See Comment Field Below ) REMOVE LIDODERM PATCH DAILY@0900 XX 10/26/19 09:00 10/31/19 08:25 Pantoprazole Sodium (Protonix) 40 mg BID PO 10/27/19 21:00 10/31/19 08:23 Pantoprazole Sodium (Protonix) 40 mg DAILY PO 10/26/19 09:00 10/27/19 12:08 DC 10/27/19 08:43 Polyethylene Glycol (Miralax) 1 pkt DAILY PRN PO CONSTIPATION 10/25/19 13:00 Potassium Chloride (Micro-K Extencaps) 10 meq DAILY PO 10/26/19 09:00 10/31/19 21:00 10/31/19 08:23 Rosuvastatin Calcium (Crestor) 20 mg DAILY PO 10/26/19 09:00 10/31/19 08:24 Senna (Senokot) 1 tab QHS PO 10/25/19 21:00 10/30/19 20:31 Tamsulosin HCl (Flomax) 0.4 mg QHS PO 10/25/19 21:00 10/30/19 20:31 Trazodone HCl (Desyrel) 25 mg QHSP PRN PO INSOMNIA 10/25/19 16:45 10/26/19 01:39 Warfarin Sodium (Coumadin) 1.5 mg DAILY@17 PO 10/28/19 17:00 10/30/19 07:28 DC 10/29/19 17:17 Warfarin Sodium (Coumadin) 2.5 mg DAILY@17 PO 10/25/19 17:00 10/28/19 15:06 DC 10/27/19 16:43 Warfarin Sodium (Coumadin) 2.5 mg QPM@1700 PO 10/30/19 17:00 Cancel Warfarin Sodium (Coumadin) 3 mg DAILY@17 PO 10/30/19 17:00 10/31/19 09:16 DC 10/30/19 17:10 Warfarin Sodium (Coumadin) 5 mg DAILY@17 PO 10/31/19 17:00 LIGIA RICH MD Oct 31, 2019 11:25
--- NOTE | 2019-10-31 11:33 | IPNPDOC ---
PM&R Progress Note DATE OF SERVICE: Oct 31, 2019 [employer] Management Technician Progress Note Subjective: Patient reporting he showered over the weekend and stating he is coughing a little, but it is better. REVIEW OF SYSTEMS: The following is a completed review of systems and has been reviewed. Review of systems otherwise unremarkable. PAIN: Patient self reports no pain EYES: No recent vision changes EARS, NOSE, & THROAT: No throat pain, or dysphagia, or rhinorrhea CARDIOVASCULAR: Denies chest pain or palpitations PULMONARY: Denies shortness of breath at rest, +exertional dyspnea (improving) GASTROINTESTINAL: Denies constipation/diarrhea GENITOURINARY: denies dysuria MUSCULOSKELETAL: generalized weakness NEUROLOGICAL:denies focal tremor or seizure activity HEMATOLOGICAL: denies easy bruising SKIN: sternal and chest wall incision PSYCHIATRIC: Unremarkable All other review of systems found to be negative. PHYSICAL EXAMINATION: VITAL SIGNS: Please see below. GENERAL: Pleasant and cooperative. No acute distress. HEENT: PERRL. Extraocular movements intact. Clear conjunctiva CARDIOVASCULAR: Regular rate and rhythm. No murmurs, rubs, or gallops LUNGS: Clear to auscultation bilaterally. No wheezes. No rhonchi, diminished at the bases ABDOMEN: Soft, nontender, nondistended. Positive bowel sounds. Normal active bowel sounds NEUROLOGICAL: Alert and oriented times three. Cranial nerves II through XII grossly intact. Sensation grossly intact in all 4 extremities EXTREMITIES: 5\\5 strength bilateral upper extremities. 5\\5 strength right lower extremity. 5/5 strength in left lower extremity. +bilat LE edema SKIN: sternal incision c/d/i, pacemaker incision c/d/i right calf with bruising, erythematous, and mildly TTP ASSESSMENT:79-year-old M with past medical history of HTN, CAD who presents status post CABGx6 complicated by long hospital course with generalized weakness and cardiac deconditioning PLAN: 1. Rehab- PT, OT advance gait training and endurance using energy conservation techniques-sternal and pacemaker precautions -goal max-exertion RPE 4-5 2.Cardiac: s/p CABGx6 and pacemaker in setting of newly diagnoses afib with tach-abundio syndrome-c/u metoprolol, ASA, Plavix, and Coumadin goal INR 2-3, medicine consulted to assist in management, BP so far well controlled, patient with expected elevations on exertion with good recovery time back to baseline -will refer to cardiac rehab -HTN and systolic CHF with EF 40-45% c/u lisinopril, increased lasix to 40mg daily and acewrap for LE edema, c/u fluid restrict, daily weights -HLD c/u statin 3. 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 ID: s/p course of Cefdinir for RLE cellulitis, monitor for worsening infection-improving -will start Levaquin for URI 5. RHeum: hx of gout, c/u allopurinol 6. DVT ppx: on coumadin, RIJ DVT on coumadin 7. GI ppx: protonix BID- FOBT Negative 8. Heme: anemia improving Hgb 9.2 today 8. Pain: tylneol prn 9. Dispo: TBD Allergies Coded Allergies: No Known Allergies (Unverified , 07/13/13) Vital Signs Vital Signs Date Time Temp Pulse Resp B/P (MAP) Pulse Ox O2 Delivery O2 Flow Rate FiO2 10/31/19 08:24 73 166/79 10/31/19 06:00 98.1 16 96 Room Air Laboratory Data CBC/BMP Laboratory Tests 10/31/19 06:19 Labs 24H Laboratory Tests 2 10/31/19 06:19: Immature Granulocyte % (Auto) 0.9, Neutrophils (%) (Auto) 72.8H, Lymphocytes (%) (Auto) 12.0L, Monocytes (%) (Auto) 9.1H, Eosinophils (%) (Auto) 5.0H, Basophils (%) (Auto) 0.2, Neutrophils # (Auto) 6.3, Lymphocytes # (Auto) 1.0L, Monocytes # (Auto) 0.8, Eosinophils # (Auto) 0.4, Basophils # (Auto) 0.0, Nucleated Red Blood Cells % (auto) 0.0, Prothrombin Time 17.3H, Prothromb Time International Ratio 1.44, Anion Gap 7L, Glomerular Filtration Rate > 60.0, Calcium Level 8.6L Microbiology Microbiology 10/28/19 Stool Occult Blood (TRUDY) - Final, Complete 10/28/19 Gram Stain - Final, Complete 10/28/19 Sputum Culture - Final, Complete Streptococcus Constellatus Yeast Like Organism 10/26/19 Respiratory Virus Panel (PCR) (TRUDY) - Final, Complete Current Medications Current Medications Current Medications Medications (Trade) Dose Ordered Sig/Rohit Route PRN Reason Start Time Stop Time Status Last Admin Dose Admin Acetaminophen (Tylenol Tab) 1,000 mg TID PO 10/25/19 16:00 10/31/19 08:25 Albuterol/ Ipratropium (Duoneb (Ipr 0.5mg/Alb 2.5mg)) 3 ml RQID NEB 10/26/19 18:00 10/30/19 17:29 Allopurinol (Zyloprim) 300 mg DAILY PO 10/26/19 09:00 10/31/19 08:23 Artificial Tears (Akwa Tears) 2 drop TID OU 10/25/19 16:00 10/31/19 08:25 Ascorbic Acid (Vitamin C) 500 mg DAILY PO 10/26/19 09:00 10/31/19 08:23 Aspirin (Ecotrin) 81 mg DAILY PO 10/26/19 09:00 10/31/19 08:24 Bisacodyl (Dulcolax Suppository) 10 mg DAILYPRN PRN [place] CONSTIPATION 10/25/19 13:00 Cefdinir (Omnicef) 300 mg BID PO 10/25/19 21:00 10/30/19 20:59 DC 10/30/19 20:30 Cetirizine HCl (ZyrTEC) 10 mg QHS PO 10/25/19 21:00 10/30/19 20:32 Clopidogrel Bisulfate (PLAVix) 75 mg DAILY PO 10/26/19 09:00 10/31/19 08:25 Docusate Sodium (Colace) 100 mg BID PO 10/25/19 21:00 10/31/19 08:23 Ferrous Sulfate (Ferrous Sulfate) 325 mg BID PO 10/25/19 21:00 10/31/19 08:23 Folic Acid (Folic Acid) 1 mg DAILY PO 10/26/19 09:00 10/31/19 08:24 Furosemide (Lasix) 20 mg DAILY PO 10/26/19 09:00 10/27/19 12:03 DC 10/27/19 08:43 Furosemide (Lasix) 40 mg DAILY PO 10/28/19 09:00 10/31/19 08:24 Guaifenesin (Robitussin Tab) 400 mg TID PO 10/26/19 16:00 10/31/19 08:23 Home Med (Med Rec Complete!) ASDIRECTED XX 10/25/19 14:00 10/25/19 13:55 DC Ipratropium [place] (Atrovent 0.02%) 0.5 mg RTID INH 10/25/19 20:00 10/26/19 17:58 DC 10/25/19 20:36 Lidocaine (Lidoderm Patch) 2 patch QHS TD 10/25/19 21:00 10/30/19 20:32 Lisinopril (Prinivil) 2.5 mg DAILY PO 10/26/19 09:00 10/31/19 09:15 DC 10/31/19 08:24 Lisinopril (Prinivil) 10 mg DAILY PO 11/01/19 09:00 Metoprolol Tartrate (Lopressor) 50 mg BID PO 10/25/19 21:00 10/31/19 09:15 DC 10/31/19 08:24 Metoprolol Tartrate (Lopressor) 50 mg TID PO 10/31/19 16:00 Non-Formulary Medication ( See Comment Field Below ) REMOVE LIDODERM PATCH DAILY@0900 XX 10/26/19 09:00 10/31/19 08:25 Pantoprazole Sodium (Protonix) 40 mg BID PO 10/27/19 21:00 10/31/19 08:23 Pantoprazole Sodium (Protonix) 40 mg DAILY PO 10/26/19 09:00 10/27/19 12:08 DC 10/27/19 08:43 Polyethylene Glycol (Miralax) 1 pkt DAILY PRN PO CONSTIPATION 10/25/19 13:00 Potassium Chloride (Micro-K Extencaps) 10 meq DAILY PO 10/26/19 09:00 10/31/19 21:00 10/31/19 08:23 Rosuvastatin Calcium (Crestor) 20 mg DAILY PO 10/26/19 09:00 10/31/19 08:24 Senna (Senokot) 1 tab QHS PO 10/25/19 21:00 10/30/19 20:31 Tamsulosin HCl (Flomax) 0.4 mg QHS PO 10/25/19 21:00 10/30/19 20:31 Trazodone HCl (Desyrel) 25 mg QHSP PRN PO INSOMNIA 10/25/19 16:45 10/26/19 01:39 Warfarin Sodium (Coumadin) 1.5 mg DAILY@17 PO 10/28/19 17:00 10/30/19 07:28 DC 10/29/19 17:17 Warfarin Sodium (Coumadin) 2.5 mg DAILY@17 PO 10/25/19 17:00 10/28/19 15:06 DC 10/27/19 16:43 Warfarin Sodium (Coumadin) 2.5 mg QPM@1700 PO 10/30/19 17:00 Cancel Warfarin Sodium (Coumadin) 3 mg DAILY@17 PO 10/30/19 17:00 10/31/19 09:16 DC 10/30/19 17:10 Warfarin Sodium (Coumadin) 5 mg DAILY@17 PO 10/31/19 17:00 LIGIA RICH MD Oct 31, 2019 11:33
[2019-10-31 13:25] LABS: CK-MB VALUE MASS 4.9 NG/ML (<3.6); MB/CK RELATIVE INDEX 6.81 (< OR =4); TROPONIN I 0.03 NG/ML (< 0.10)
[2019-10-31 14:00] VITALS: BP 114/56
[2019-10-31] MEDS ORDERED: FLUTICASONE HFA 110 MCG 12 GM INHALER (FLOVENT) INH ONE (14:00)
[2019-10-31] MEDS: AMOXICILLIN 500 MG CAP PO SCH ×2 (14:07→21:01)
[2019-10-31] MEDS ORDERED: methylPREDNISolone 4 MG TAB PO SCH (14:15)
--- NOTE | 2019-10-31 14:34 | IPNPDOC ---
Date Seen The patient was seen on 10/31/19. Progress Note SUBJECTIVE: Patient reports feeling fine again today. Cough persistent. Noted to have a brief episode of chest discomfort this afternoon during cough which had resolved. Sputum culture + strep constellatus OBJECTIVE PHYSICAL EXAMINATION: VITAL SIGNS: Please see below. General: No acute distress, Alert Eyes: Normal sclera, EOMI HENT: Atraumatic Cardiovascular: Normal rate, normal rhythm. Pulmonary: Clear to auscultation b/l, no wheezing GI: Soft, nontender, nondistended Skin: midline anterior chest incision noted clean with no leakage nor erythema. Neuro: CN grossly intact. No focal deficits. Psych: oriented x 3 LABORATORY DATA: Please see below. ASSESSMENT/PLAN: 1. CAD s/p CABG - c/w DAPT: ASA, Plavix 2. Generalized weakness - c/w rehab per ARU. 3. Prostate ca - s/p prostatectomy 4. HTN - c/w lisinopril and metoprolol. 5. gout - c/w allopurinol 6. 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 - Swelling reported improving with no significant erythema around site. 7. Afib - On warfarin. - Monitor INR. 8. HFrEF - EF 40-45%. - c/w ACEI, lasix, metoprolol. 9. Cough - suspect bronchitis. CXR shows mild haziness. - sputum culture + strep constellatus and yeast like organism. - Started on Abx and steroid dose pack in setting of persistent cough and positive sputum. - CT chest shows paratracheal mediastinal hematoma likely 2/2 surgery. XR performed here appear to be unchanged from previous. DVT ppx: warfarin VS, I&O, 24H, Fishbone Vital Signs/I&O Vital Signs Date Time Temp Pulse Resp B/P (MAP) Pulse Ox O2 Delivery O2 Flow Rate FiO2 10/31/19 08:24 73 166/79 10/31/19 06:00 98.1 16 96 Room Air I&O- Last 24 Hours up to 6 AM 10/31/19 06:00 Intake Total 540 ml Balance 540 ml Laboratory Data 24H LABS Laboratory Tests 2 10/31/19 06:19: Immature Granulocyte % (Auto) 0.9, Neutrophils (%) (Auto) 72.8H, Lymphocytes (%) (Auto) 12.0L, Monocytes (%) (Auto) 9.1H, Eosinophils (%) (Auto) 5.0H, Basophils (%) (Auto) 0.2, Neutrophils # (Auto) 6.3, Lymphocytes # (Auto) 1.0L, Monocytes # (Auto) 0.8, Eosinophils # (Auto) 0.4, Basophils # (Auto) 0.0, Nucleated Red Blood Cells % (auto) 0.0, Prothrombin Time 17.3H, Prothromb Time International Ratio 1.44, Anion Gap 7L, Glomerular Filtration Rate > 60.0, Calcium Level 8.6L 10/31/19 12:44: Total Creatine Kinase 72, Creatine Kinase MB 4.9H, Creatine Kinase MB Relative Index 6.81H, Troponin I 0.03 CBC/BMP Laboratory Tests 10/31/19 06:19 Microbiology Microbiology 10/31/19 Blood Culture, Received Pending 10/31/19 Blood Culture, Received Pending 10/28/19 Stool Occult Blood (TRUDY) - Final, Complete 10/28/19 Gram Stain - Final, Complete 10/28/19 Sputum Culture - Final, Complete Streptococcus Constellatus Yeast Like Organism 10/26/19 Respiratory Virus Panel (PCR) (TRUDY) - Final, Complete DALLIN RASHEED MD Oct 31, 2019 14:34
[2019-10-31] MEDS ORDERED: WARFARIN SOD 5 MG TAB PO SCH (17:00)
[2019-10-31] MEDS ORDERED: WARFARIN SOD 2 MG TAB PO ONE (17:00)
[2019-10-31] MEDS: methylPREDNISolone 4 MG TAB PO SCH ×2 (17:32→20:59)
[2019-10-31] MEDS: SODIUM CHLORIDE NASAL 0.65% SPRAY BTL (OCEAN) SCH ×2 (17:33→21:01)
[2019-10-31] MEDS: FLUTICASONE PROP 0.05% NASAL SPRAY 16 GM (FLONASE) NARES SCH ×2 (17:33→21:01)
[2019-10-31] MEDS: FLUTICASONE HFA 110 MCG 12 GM INHALER (FLOVENT) INH SCH (19:31)
[2019-10-31 20:00] VITALS: BP 114/63
[2019-10-31] MEDS: TAMSULOSIN 0.4 MG CAP PO SCH (20:59)
[2019-10-31] MEDS: SENNA 8.6 MG TAB (SENOKOT) PO SCH (20:59)
[2019-10-31] MEDS: CETIRIZINE (ZyrTEC) 10 MG TAB PO SCH (20:59)
[2019-10-31] MEDS: LIDOCAINE 5% (LIDODERM) PATCH TD SCH (21:00)
[2019-11-01] MEDS: AMOXICILLIN 500 MG CAP PO SCH ×3 (05:34→22:10)
[2019-11-01 06:04] VITALS: BP 120/74
[2019-11-01 06:39] LABS: INR 1.41
--- NOTE | 2019-11-01 06:52 | ECGEPIP ---
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
[2019-11-01] MEDS: FLUTICASONE HFA 110 MCG 12 GM INHALER (FLOVENT) INH SCH ×2 (07:54→20:48)
[2019-11-01] MEDS: IPRATROPIUM 0.5MG/ALBUTEROL 2.5MG INH SOL UD 3ML (DUONEB)(J7620) NEB SCH ×4 (07:54→20:48)
[2019-11-01] MEDS: guaiFENesin 200 MG TAB PO SCH ×3 (08:22→22:09)
[2019-11-01] MEDS: methylPREDNISolone 4 MG TAB PO SCH ×4 (08:22→22:10)
[2019-11-01] MEDS: CLOPIDOGREL 75 MG TAB PO SCH (08:22)
[2019-11-01] MEDS: PANTOPRAZOLE 40MG TAB (PROTONIX) PO SCH ×2 (08:22→22:10)
[2019-11-01] MEDS: METOPROLOL TART 50 MG TAB PO SCH ×3 (08:22→22:09)
[2019-11-01] MEDS: ROSUVASTATIN 10 MG TAB (CRESTOR) PO SCH (08:22)
[2019-11-01] MEDS: FUROSEMIDE 20 MG TAB PO SCH (08:22)
[2019-11-01] MEDS: FOLIC ACID 1 MG TAB PO SCH (08:22)
[2019-11-01] MEDS: ASPIRIN 81 MG ENTERIC TAB PO SCH (08:22)
[2019-11-01] MEDS: FERROUS SULFATE 325MG TAB PO SCH ×2 (08:22→22:09)
[2019-11-01] MEDS: allopurinoL 300 MG TAB PO SCH (08:23)
[2019-11-01] MEDS: FLUTICASONE PROP 0.05% NASAL SPRAY 16 GM (FLONASE) NARES SCH ×2 (08:23→22:11)
[2019-11-01] MEDS: ASCORBIC ACID 500 MG TAB PO SCH (08:23)
[2019-11-01] MEDS: DOCUSATE SODIUM 100 MG CAP PO SCH ×2 (08:23→22:09)
[2019-11-01] MEDS: ACETAMINOPHEN 500 MG TAB PO SCH ×3 (08:23→22:10)
[2019-11-01] MEDS: lisinopriL 10 MG TAB PO SCH (08:23)
[2019-11-01] MEDS: POLYVINYL ALCOHOL OPHTH SOLN 15 ML(LIQUITEARS) OU SCH ×3 (08:24→22:11)
[2019-11-01] MEDS: SODIUM CHLORIDE NASAL 0.65% SPRAY BTL (OCEAN) SCH ×3 (08:24→22:11)
[2019-11-01] MEDS: **NOTE PATIENT COMMENT** MISC XX SCH (08:27)
[2019-11-01 11:48] VITALS: BP 138/80
--- NOTE | 2019-11-01 12:18 | IPNPDOC ---
PM&R Progress Note DATE OF SERVICE: Nov 01, 2019 Heading Maker Progress Note Subjective: Patient reporting he slept very well last night and feels it is easier to take deeper breaths since starting steroids and antibiotics. REVIEW OF SYSTEMS: The following is a completed review of systems and has been reviewed. Review of systems otherwise unremarkable. PAIN: Patient self reports no pain EYES: No recent vision changes EARS, NOSE, & THROAT: No throat pain, or dysphagia, or rhinorrhea CARDIOVASCULAR: Denies chest pain or palpitations PULMONARY: Denies shortness of breath at rest, +exertional dyspnea (improving) GASTROINTESTINAL: Denies constipation/diarrhea GENITOURINARY: denies dysuria MUSCULOSKELETAL: generalized weakness NEUROLOGICAL:denies focal tremor or seizure activity HEMATOLOGICAL: denies easy bruising SKIN: sternal and chest wall incision PSYCHIATRIC: Unremarkable All other review of systems found to be negative. PHYSICAL EXAMINATION: VITAL SIGNS: Please see below. GENERAL: Pleasant and cooperative. No acute distress. HEENT: PERRL. Extraocular movements intact. Clear conjunctiva CARDIOVASCULAR: Regular rate and rhythm. No murmurs, rubs, or gallops LUNGS: Clear to auscultation bilaterally. No wheezes. No rhonchi, diminished at the bases ABDOMEN: Soft, nontender, nondistended. Positive bowel sounds. Normal active bowel sounds NEUROLOGICAL: Alert and oriented times three. Cranial nerves II through XII grossly intact. Sensation grossly intact in all 4 extremities EXTREMITIES: 5\\5 strength bilateral upper extremities. 5\\5 strength right lower extremity. 5/5 strength in left lower extremity. +bilat LE edema (improving) SKIN: sternal incision c/d/i, pacemaker incision c/d/i right calf with bruising, erythematous, and mildly TTP ASSESSMENT:79-year-old M with past medical history of HTN, CAD who presents status post CABGx6 complicated by long hospital course with generalized weakness and cardiac deconditioning PLAN: 1. Rehab- PT, OT advance gait training and endurance using energy conservation techniques-sternal and pacemaker precautions -goal max-exertion RPE 4-5 2.Cardiac: s/p CABGx6 and pacemaker in setting of newly diagnoses afib with tach-abundio syndrome-c/u metoprolol, ASA, Plavix, and Coumadin goal INR 2-3, medicine consulted to assist in management,increased frequency of beta-nitin for elevation in resting BPs-better today - patient with expected elevations on exertion with good recovery time back to baseline -call made to Dr. Means's office to expedite transfer of care from inpatient to outpatient cardiac rehab -HTN and systolic CHF with EF 40-45% c/u lisinopril, increased lasix to 40mg daily and acewrap for LE edema, c/u fluid restrict, daily weights -HLD c/u statin 3. 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 ID: s/p course of Cefdinir for RLE cellulitis, monitor for worsening infection-improving -c/u amoxicillin for bacterial bronchitis and medrol dose pack for symptom m anagement, c/u ICS as well-breathing and cough improving 5. RHeum: hx of gout, c/u allopurinol 6. DVT ppx: on coumadin, RIJ DVT on coumadin 7. GI ppx: protonix BID- FOBT Negative 8. Heme: anemia improving 8. Pain: tylneol prn 9. Dispo: 11-04-19 to home, progressing towards goals Allergies Coded Allergies: No Known Allergies (Unverified , 07/13/13) Vital Signs Vital Signs Date Time Temp Pulse Resp B/P (MAP) Pulse Ox O2 Delivery O2 Flow Rate FiO2 11/01/19 11:48 138/80 (99) 11/01/19 08:22 59 11/01/19 06:04 96.9 18 96 Room Air Laboratory Data Labs 24H Laboratory Tests 2 10/31/19 12:44: Total Creatine Kinase 72, Creatine Kinase MB 4.9H, Creatine Kinase MB Relative Index 6.81H, Troponin I 0.03 11/01/19 06:17: Prothrombin Time 17.0H, Prothromb Time International Ratio 1.41 Microbiology Microbiology 10/31/19 Blood Culture, Received Pending 10/31/19 Blood Culture, Received Pending 10/28/19 Stool Occult Blood (TRUDY) - Final, Complete 10/28/19 Gram Stain - Final, Complete 10/28/19 Sputum Culture - Final, Complete Streptococcus Constellatus Yeast Like Organism 10/26/19 Respiratory Virus Panel (PCR) (TRUDY) - Final, Complete Current Medications Current Medications Current Medications Medications (Trade) Dose Ordered Sig/Rohit Route PRN Reason Start Time Stop Time Status Last Admin Dose Admin Acetaminophen (Tylenol Tab) 1,000 mg TID PO 10/25/19 16:00 11/01/19 08:23 Albuterol/ Ipratropium (Duoneb (Ipr 0.5mg/Alb 2.5mg)) 3 ml RQID NEB 10/26/19 18:00 11/01/19 11:36 Allopurinol (Zyloprim) 300 mg DAILY PO 10/26/19 09:00 11/01/19 08:23 Amoxicillin (Amoxicillin) 500 mg Q8H PO 10/31/19 14:00 11/05/19 06:01 11/01/19 05:34 Artificial Tears ([place] Tears) 2 drop TID OU 10/25/19 16:00 11/01/19 08:24 Ascorbic Acid (Vitamin C) 500 mg DAILY PO 10/26/19 09:00 11/01/19 08:23 Aspirin (Ecotrin) 81 mg DAILY PO 10/26/19 09:00 11/01/19 08:22 Bisacodyl (Dulcolax Suppository) 10 mg DAILYPRN PRN [place] CONSTIPATION 10/25/19 13:00 Cefdinir (Omnicef) 300 mg BID PO 10/25/19 21:00 10/30/19 20:59 DC 10/30/19 20:30 Cetirizine HCl (ZyrTEC) 10 mg QHS PO 10/25/19 21:00 10/31/19 20:59 Clopidogrel Bisulfate (PLAVix) 75 mg DAILY PO 10/26/19 09:00 11/01/19 08:22 Docusate Sodium (Colace) 100 mg BID PO 10/25/19 21:00 11/01/19 08:23 Ferrous Sulfate (Ferrous Sulfate) 325 mg BID PO 10/25/19 21:00 11/01/19 08:22 Fluticasone Propionate (Flonase 0.05% Nasal [place]) 1 spray BID NARES 10/31/19 14:30 11/01/19 08:23 Fluticasone Propionate (Flovent Hfa 110 Mcg) 2 puff RBID INH 10/31/19 20:00 11/01/19 07:54 Folic Acid (Folic Acid) 1 mg DAILY PO 10/26/19 09:00 11/01/19 08:22 Furosemide (Lasix) 20 mg DAILY PO 10/26/19 09:00 10/27/19 12:03 DC 10/27/19 08:43 Furosemide (Lasix) 40 mg DAILY PO 10/28/19 09:00 11/01/19 08:22 Guaifenesin (Robitussin Tab) 400 mg TID PO 10/26/19 16:00 11/01/19 08:22 Home Med (Med Rec Complete!) ASDIRECTED XX 10/25/19 14:00 10/25/19 13:55 DC Ipratropium [place] (Atrovent 0.02%) 0.5 mg RTID INH 10/25/19 20:00 10/26/19 17:58 DC 10/25/19 20:36 Levofloxacin (Levaquin) 750 mg DAILY@06 PO 10/31/19 06:00 10/31/19 12:14 DC Lidocaine (Lidoderm Patch) 2 patch QHS TD 10/25/19 21:00 10/31/19 21:00 Lisinopril (Prinivil) 2.5 mg DAILY PO 10/26/19 09:00 10/31/19 09:15 DC 10/31/19 08:24 Lisinopril (Prinivil) 10 mg DAILY PO 11/01/19 09:00 11/01/19 08:23 Methylprednisolone (Medrol) 4 mg BID@08,21 PO 11/05/19 08:00 11/05/19 23:59 Methylprednisolone (Medrol) 4 mg BID@1230,18 PO 11/01/19 12:30 11/01/19 23:59 11/01/19 11:41 Methylprednisolone (Medrol) 4 mg DAILY@08 PO 11/06/19 08:00 11/06/19 23:59 Methylprednisolone (Medrol) 4 mg QID@08,1230,18,21 PO 11/03/19 08:00 11/03/19 23:59 Methylprednisolone (Medrol) 4 mg TID@08,1230,18 PO 11/02/19 08:00 11/02/19 23:59 Methylprednisolone (Medrol) 4 mg TID@08,1230,21 PO 11/04/19 08:00 11/04/19 23:59 Methylprednisolone (Medrol) 8 mg BID@08,21 PO 11/01/19 08:00 11/01/19 23:59 11/01/19 08:22 Methylprednisolone (Medrol) 8 mg BID@1500,2100 PO 10/31/19 15:00 10/31/19 21:01 DC 10/31/19 20:59 Methylprednisolone (Medrol) 8 mg QHS PO 11/02/19 21:00 11/02/19 23:59 Methylprednisolone (Medrol) medrol dose pack ASDIRECTED PO 10/31/19 14:15 UNV Metoprolol Tartrate (Lopressor) 50 mg BID PO 10/25/19 21:00 10/31/19 09:15 DC 10/31/19 08:24 Metoprolol Tartrate (Lopressor) 50 mg TID PO 10/31/19 16:00 11/01/19 08:22 Non-Formulary Medication ( See Comment Field Below ) REMOVE LIDODERM PATCH DAILY@0900 XX 10/26/19 09:00 11/01/19 08:27 Pantoprazole Sodium (Protonix) 40 mg BID PO 10/27/19 21:00 11/01/19 08:22 Pantoprazole Sodium (Protonix) 40 mg DAILY PO 10/26/19 09:00 10/27/19 12:08 DC 10/27/19 08:43 Polyethylene Glycol (Miralax) 1 pkt DAILY PRN PO CONSTIPATION 10/25/19 13:00 Potassium Chloride (Micro-K Extencaps) 10 meq DAILY PO 10/26/19 09:00 10/31/19 21:00 DC 10/31/19 08:23 Rosuvastatin Calcium (Crestor) 20 mg DAILY PO 10/26/19 09:00 11/01/19 08:22 Senna (Senokot) 1 tab QHS PO 10/25/19 21:00 10/31/19 20:59 Sodium Chloride ([place] Nasal [place]) 2 spray TID NA 10/31/19 16:00 11/01/19 08:24 Tamsulosin HCl (Flomax) 0.4 mg QHS PO 10/25/19 21:00 10/31/19 20:59 Trazodone HCl (Desyrel) 25 mg QHSP PRN PO INSOMNIA 10/25/19 16:45 10/26/19 01:39 Warfarin Sodium (Coumadin) 1.5 mg DAILY@17 PO 10/28/19 17:00 10/30/19 07:28 DC 10/29/19 17:17 Warfarin Sodium (Coumadin) 2 mg DAILY@17 PO 11/01/19 17:00 Warfarin Sodium (Coumadin) 2.5 mg DAILY@17 PO 10/25/19 17:00 10/28/19 15:06 DC 10/27/19 16:43 Warfarin Sodium (Coumadin) 2.5 mg QPM@1700 PO 10/30/19 17:00 Cancel Warfarin Sodium (Coumadin) 3 mg DAILY@17 PO 10/30/19 17:00 10/31/19 09:16 DC 10/30/19 17:10 Warfarin Sodium (Coumadin) 5 mg DAILY@17 PO 10/31/19 17:00 11/01/19 09:58 DC 10/31/19 17:31 Warfarin Sodium (Coumadin) 5 mg DAILY@17 PO 11/01/19 17:00 LIGIA RICH MD Nov 01, 2019 12:18
[2019-11-01 14:00] VITALS: BP 143/78
[2019-11-01] MEDS ORDERED: CEPACOL LOZENGE PO PRN (15:00)
[2019-11-01] MEDS ORDERED: WARFARIN SOD 2 MG TAB PO SCH (17:00)
[2019-11-01] MEDS ORDERED: WARFARIN SOD 5 MG TAB PO SCH (17:00)
[2019-11-01 20:00] VITALS: BP 103/58
[2019-11-01] MEDS: MIRALAX *UNIT DOSE* 17GM PACKET PO PRN (22:08)
[2019-11-01] MEDS: CETIRIZINE (ZyrTEC) 10 MG TAB PO SCH (22:08)
[2019-11-01] MEDS: SENNA 8.6 MG TAB (SENOKOT) PO SCH (22:09)
[2019-11-01] MEDS: TAMSULOSIN 0.4 MG CAP PO SCH (22:10)
[2019-11-01] MEDS: LIDOCAINE 5% (LIDODERM) PATCH TD SCH (22:11)
[2019-11-02] MEDS: AMOXICILLIN 500 MG CAP PO SCH ×3 (05:23→22:17)
[2019-11-02 06:00] VITALS: BP 144/77
[2019-11-02 07:27] LABS: BASO % 0.1 % (0.0-1.0); EOS % 0.1 % (0.0-3.0); HEMOGLOBIN 9.1 g/dl (13.5-17.5); LYMPH # 0.8 10^3/uL (1.5-5.0); LYMPH % 7.3 % (24.0-44.0); MEAN CORPUSCULAR HEMOGLOBIN 27.8 pg (27.0-33.0); MEAN CORPUSCULAR HGB CONC 30.3 g/dl (32.0-36.5); MEAN CORPUSCULAR VOLUME 91.7 fl (80.0-96.0); MONO # 0.7 10^3/uL (0.0-0.8); MONO % 6.4 % (0.0-5.0); NEUTROPHILS # 8.7 10^3/uL (1.5-8.5); NEUTROPHILS % 85.3 % (36.0-66.0); PLATELET COUNT, AUTOMATED 479 10^3/uL (150-450); RED BLOOD COUNT 3.27 10^6/uL (4.30-6.10); WHITE BLOOD COUNT 10.2 10^3/uL (4.0-10.0)
[2019-11-02 07:38] LABS: INR 1.6; PROTHROMBIN TIME 18.8 SECONDS (11.8-14.0)
[2019-11-02 08:00] LABS: BLOOD UREA NITROGEN 24 MG/DL (7-18); CALCIUM LEVEL 8.9 MG/DL (8.8-10.2); CARBON DIOXIDE LEVEL 26 MEQ/L (21-32); CHLORIDE LEVEL 104 MEQ/L (98-107); CREATININE FOR GFR 1.03 MG/DL (0.70-1.30); GLOMERULAR FILTRATION RATE > 60.0 (>42); GLUCOSE, FASTING 108 MG/DL (70-100); POTASSIUM SERUM 4.2 MEQ/L (3.5-5.1); SODIUM LEVEL 137 MEQ/L (136-145)
[2019-11-02] MEDS: FLUTICASONE HFA 110 MCG 12 GM INHALER (FLOVENT) INH SCH ×2 (08:42→20:00)
[2019-11-02] MEDS: IPRATROPIUM 0.5MG/ALBUTEROL 2.5MG INH SOL UD 3ML (DUONEB)(J7620) NEB SCH ×4 (08:42→20:00)
[2019-11-02] MEDS: PANTOPRAZOLE 40MG TAB (PROTONIX) PO SCH ×2 (09:08→20:12)
[2019-11-02] MEDS: lisinopriL 10 MG TAB PO SCH (09:08)
[2019-11-02] MEDS: ASCORBIC ACID 500 MG TAB PO SCH (09:09)
[2019-11-02] MEDS: ROSUVASTATIN 10 MG TAB (CRESTOR) PO SCH (09:09)
[2019-11-02] MEDS: DOCUSATE SODIUM 100 MG CAP PO SCH ×2 (09:09→20:15)
[2019-11-02] MEDS: methylPREDNISolone 4 MG TAB PO SCH ×3 (09:09→17:11)
[2019-11-02] MEDS: FUROSEMIDE 20 MG TAB PO SCH (09:09)
[2019-11-02] MEDS: guaiFENesin 200 MG TAB PO SCH ×3 (09:09→20:12)
[2019-11-02] MEDS: FOLIC ACID 1 MG TAB PO SCH (09:09)
[2019-11-02] MEDS: allopurinoL 300 MG TAB PO SCH (09:09)
[2019-11-02] MEDS: CLOPIDOGREL 75 MG TAB PO SCH (09:09)
[2019-11-02] MEDS: ASPIRIN 81 MG ENTERIC TAB PO SCH (09:09)
[2019-11-02] MEDS: FERROUS SULFATE 325MG TAB PO SCH ×2 (09:09→20:12)
[2019-11-02] MEDS: METOPROLOL TART 50 MG TAB PO SCH ×3 (09:09→20:14)
[2019-11-02] MEDS: ACETAMINOPHEN 500 MG TAB PO SCH ×3 (09:10→20:12)
[2019-11-02] MEDS: FLUTICASONE PROP 0.05% NASAL SPRAY 16 GM (FLONASE) NARES SCH ×2 (09:12→20:21)
[2019-11-02] MEDS: SODIUM CHLORIDE NASAL 0.65% SPRAY BTL (OCEAN) SCH ×3 (09:13→20:21)
[2019-11-02] MEDS: POLYVINYL ALCOHOL OPHTH SOLN 15 ML(LIQUITEARS) OU SCH ×3 (09:13→20:21)
[2019-11-02] MEDS: **NOTE PATIENT COMMENT** MISC XX SCH (09:13)
--- NOTE | 2019-11-02 12:19 | IPNPDOC ---
PM&R Progress Note DATE OF SERVICE: Nov 02, 2019 Compressed Yeast Supervisor Progress Note Subjective: Patient seen walking in therapy and encourage to pace himself in preparation for room privileges prior to discharge. REVIEW OF SYSTEMS: The following is a completed review of systems and has been reviewed. Review of systems otherwise unremarkable. PAIN: Patient self reports no pain EYES: No recent vision changes EARS, NOSE, & THROAT: No throat pain, or dysphagia, or rhinorrhea CARDIOVASCULAR: Denies chest pain or palpitations PULMONARY: Denies shortness of breath at rest, +exertional dyspnea (improving) GASTROINTESTINAL: Denies constipation/diarrhea GENITOURINARY: denies dysuria MUSCULOSKELETAL: generalized weakness NEUROLOGICAL:denies focal tremor or seizure activity HEMATOLOGICAL: denies easy bruising SKIN: sternal and chest wall incision PSYCHIATRIC: Unremarkable All other review of systems found to be negative. PHYSICAL EXAMINATION: VITAL SIGNS: Please see below. GENERAL: Pleasant and cooperative. No acute distress. HEENT: PERRL. Extraocular movements intact. Clear conjunctiva CARDIOVASCULAR: Regular rate and rhythm. No murmurs, rubs, or gallops LUNGS: Clear to auscultation bilaterally. No wheezes. No rhonchi, diminished at the bases ABDOMEN: Soft, nontender, nondistended. Positive bowel sounds. Normal active bowel sounds NEUROLOGICAL: Alert and oriented times three. Cranial nerves II through XII grossly intact. Sensation grossly intact in all 4 extremities EXTREMITIES: 5\\5 strength bilateral upper extremities. 5\\5 strength right lower extremity. 5/5 strength in left lower extremity. +bilat LE edema (improving) SKIN: sternal incision c/d/i, pacemaker incision c/d/i right calf with bruising, erythematous, and mildly TTP ASSESSMENT:79-year-old M with past medical history of HTN, CAD who presents status post CABGx6 complicated by long hospital course with generalized weakness and cardiac deconditioning PLAN: 1. Rehab- PT, OT advance gait training and endurance using energy conservation techniques-sternal and pacemaker precautions -goal max-exertion RPE 4-5 2.Cardiac: s/p CABGx6 and pacemaker in setting of newly diagnoses afib with tach-abundio syndrome-c/u metoprolol, ASA, Plavix, and Coumadin goal INR 2-3, medicine consulted to assist in management,increased frequency of beta-nitin for elevation in resting BPs-better today - patient with expected elevations on exertion with good recovery time back to baseline -call made to Dr. Means's office to expedite transfer of care from inpatient to outpatient cardiac rehab -HTN and systolic CHF with EF 40-45% c/u lisinopril, increased lasix to 40mg daily and acewrap for LE edema, c/u fluid restrict, daily weights -HLD c/u statin 3. 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 ID: s/p course of Cefdinir for RLE cellulitis, monitor for worsening in fection-improving -c/u amoxicillin for bacterial bronchitis and medrol dose pack for symptom management, c/u ICS as well-breathing and cough improving 5. RHeum: hx of gout, c/u allopurinol 6. DVT ppx: on coumadin, RIJ DVT on coumadin 7. GI ppx: protonix BID- FOBT Negative 8. Heme: anemia improving 8. Pain: tylneol prn 9. Dispo: 11-04-19 to home, progressing towards goals Allergies Coded Allergies: No Known Allergies (Unverified , 07/13/13) Vital Signs Vital Signs Date Time Temp Pulse Resp B/P (MAP) Pulse Ox O2 Delivery O2 Flow Rate FiO2 11/02/19 06:00 97.7 73 18 144/77 (99) 94 Room Air Laboratory Data CBC/BMP Laboratory Tests 11/02/19 07:12 Labs 24H Laboratory Tests 2 11/02/19 07:12: Immature Granulocyte % (Auto) 0.8, Neutrophils (%) (Auto) 85.3H, Lymphocytes (%) (Auto) 7.3L, Monocytes (%) (Auto) 6.4H, Eosinophils (%) (Auto) 0.1, Basophils (%) (Auto) 0.1, Neutrophils # (Auto) 8.7H, Lymphocytes # (Auto) 0.8L, Monocytes # (Auto) 0.7, Eosinophils # (Auto) 0.0, Basophils # (Auto) 0.0, Nucleated Red Blood Cells % (auto) 0.0, Prothrombin Time 18.8H, Prothromb Time International Ratio 1.60, Anion Gap 7L, Glomerular Filtration Rate > 60.0, Calcium Level 8.9 Microbiology Microbiology 10/31/19 Blood Culture - Preliminary, Resulted No growth after 24 hours . All specim... 10/31/19 Blood Culture - Preliminary, Resulted No growth after 24 hours . All specim... 10/28/19 Stool Occult Blood (TRUDY) - Final, Complete 10/28/19 Gram Stain - Final, Complete 10/28/19 Sputum Culture - Final, Complete Streptococcus Constellatus Yeast Like Organism 10/26/19 Respiratory Virus Panel (PCR) (TRUDY) - Final, Complete Current Medications Current Medications Current Medications Medications (Trade) Dose Ordered Sig/Rohit Route PRN Reason Start Time Stop Time Status Last Admin Dose Admin Acetaminophen (Tylenol Tab) 1,000 mg TID PO 10/25/19 16:00 11/02/19 09:10 Albuterol/ Ipratropium (Duoneb (Ipr 0.5mg/Alb 2.5mg)) 3 ml RQID NEB 10/26/19 18:00 11/02/19 08:42 Allopurinol (Zyloprim) 300 mg DAILY PO 10/26/19 09:00 11/02/19 09:09 Amoxicillin (Amoxicillin) 500 mg Q8H PO 10/31/19 14:00 11/05/19 06:01 11/02/19 05:23 Artificial Tears ([place] Tears) 2 drop TID OU 10/25/19 16:00 11/02/19 09:13 Ascorbic Acid (Vitamin C) 500 mg DAILY PO 10/26/19 09:00 11/02/19 09:09 Aspirin (Ecotrin) 81 mg DAILY PO 10/26/19 09:00 11/02/19 09:09 Bisacodyl (Dulcolax Suppository) 10 mg DAILYPRN PRN [place] CONSTIPATION 10/25/19 13:00 Cefdinir (Omnicef) 300 mg BID PO 10/25/19 21:00 10/30/19 20:59 DC 10/30/19 20:30 Cetirizine HCl (ZyrTEC) 10 mg QHS PO 10/25/19 21:00 11/01/19 22:08 Cetylpyridinium Chloride (Cepacol) 1 janusz Q1HP PRN PO SORE THROAT 11/01/19 15:00 Clopidogrel Bisulfate (PLAVix) 75 mg DAILY PO 10/26/19 09:00 11/02/19 09:09 Docusate Sodium (Colace) 100 mg BID PO 10/25/19 21:00 11/02/19 09:09 Ferrous Sulfate (Ferrous Sulfate) 325 mg BID PO 10/25/19 21:00 11/02/19 09:09 Fluticasone Propionate (Flonase 0.05% Nasal [place]) 1 spray BID NARES 10/31/19 14:30 11/02/19 09:12 Fluticasone Propionate (Flovent Hfa 110 Mcg) 2 puff RBID INH 10/31/19 20:00 11/02/19 08:42 Folic Acid (Folic Acid) 1 mg DAILY PO 10/26/19 09:00 11/02/19 09:09 Furosemide (Lasix) 20 mg DAILY PO 10/26/19 09:00 10/27/19 12:03 DC 10/27/19 08:43 Furosemide (Lasix) 20 mg DAILY PO 11/03/19 09:00 Furosemide (Lasix) 40 mg DAILY PO 10/28/19 09:00 11/02/19 10:16 DC 11/02/19 09:09 Guaifenesin (Robitussin Tab) 400 mg TID PO 10/26/19 16:00 11/02/19 09:09 Home Med (Med Rec Complete!) ASDIRECTED XX 10/25/19 14:00 10/25/19 13:55 DC Ipratropium [place] (Atrovent 0.02%) 0.5 mg RTID INH 10/25/19 20:00 10/26/19 17:58 DC 10/25/19 20:36 Levofloxacin (Levaquin) 750 mg DAILY@06 PO 10/31/19 06:00 10/31/19 12:14 DC Lidocaine (Lidoderm Patch) 2 patch QHS TD 10/25/19 21:00 11/01/19 22:11 Lisinopril (Prinivil) 2.5 mg DAILY PO 10/26/19 09:00 10/31/19 09:15 DC 10/31/19 08:24 Lisinopril (Prinivil) 10 mg DAILY PO 11/01/19 09:00 11/02/19 09:08 Methylprednisolone (Medrol) 4 mg BID@08,21 PO 11/05/19 08:00 11/05/19 23:59 Methylprednisolone (Medrol) 4 mg BID@1230,18 PO 11/01/19 12:30 11/01/19 23:59 DC 11/01/19 17:06 Methylprednisolone (Medrol) 4 mg DAILY@08 PO 11/06/19 08:00 11/06/19 23:59 Methylprednisolone (Medrol) 4 mg QID@08,1230,18,21 PO 11/03/19 08:00 11/03/19 23:59 Methylprednisolone (Medrol) 4 mg TID@08,1230,18 PO 11/02/19 08:00 11/02/19 23:59 11/02/19 09:09 Methylprednisolone (Medrol) 4 mg TID@08,1230,21 PO 11/04/19 08:00 11/04/19 23:59 Methylprednisolone (Medrol) 8 mg BID@08,21 PO 11/01/19 08:00 11/01/19 23:59 DC 11/01/19 22:10 Methylprednisolone (Medrol) 8 mg BID@1500,2100 PO 10/31/19 15:00 10/31/19 21:01 DC 10/31/19 20:59 Methylprednisolone (Medrol) 8 mg QHS PO 11/02/19 21:00 11/02/19 23:59 Methylprednisolone (Medrol) medrol dose pack ASDIRECTED PO 10/31/19 14:15 UNV Metoprolol Tartrate (Lopressor) 50 mg BID PO 10/25/19 21:00 10/31/19 09:15 DC 10/31/19 08:24 Metoprolol Tartrate (Lopressor) 50 mg TID PO 10/31/19 16:00 11/02/19 09:09 Non-Formulary Medication ( See Comment Field Below ) REMOVE LIDODERM PATCH DAILY@0900 XX 10/26/19 09:00 11/02/19 09:13 Pantoprazole Sodium (Protonix) 40 mg BID PO 10/27/19 21:00 11/02/19 09:08 Pantoprazole Sodium (Protonix) 40 mg DAILY PO 10/26/19 09:00 10/27/19 12:08 DC 10/27/19 08:43 Polyethylene Glycol (Miralax) 1 pkt DAILY PRN PO CONSTIPATION 10/25/19 13:00 11/01/19 22:08 Potassium Chloride (Micro-K Extencaps) 10 meq DAILY PO 10/26/19 09:00 10/31/19 21:00 DC 10/31/19 08:23 Rosuvastatin Calcium (Crestor) 20 mg DAILY PO 10/26/19 09:00 11/02/19 09:09 Senna (Senokot) 1 tab QHS PO 10/25/19 21:00 11/01/19 22:09 Sodium Chloride ([place] Nasal [place]) 2 spray TID NA 10/31/19 16:00 11/02/19 09:13 Tamsulosin HCl (Flomax) 0.4 mg QHS PO 10/25/19 21:00 11/01/19 22:10 Trazodone HCl (Desyrel) 25 mg QHSP PRN PO INSOMNIA 10/25/19 16:45 10/26/19 01:39 Warfarin Sodium (Coumadin) 1.5 mg DAILY@17 PO 10/28/19 17:00 10/30/19 07:28 DC 10/29/19 17:17 Warfarin Sodium (Coumadin) 2 mg DAILY@17 PO 11/01/19 17:00 11/02/19 10:15 DC 11/01/19 15:58 Warfarin Sodium (Coumadin) 2.5 mg DAILY@17 PO 10/25/19 17:00 10/28/19 15:06 DC 10/27/19 16:43 Warfarin Sodium (Coumadin) 2.5 mg QPM@1700 PO 10/30/19 17:00 Cancel Warfarin Sodium (Coumadin) 3 mg DAILY@17 PO 10/30/19 17:00 10/31/19 09:16 DC 10/30/19 17:10 Warfarin Sodium (Coumadin) 5 mg DAILY@17 PO 10/31/19 17:00 11/01/19 09:58 DC 10/31/19 17:31 Warfarin Sodium (Coumadin) 5 mg DAILY@17 PO 11/01/19 17:00 11/02/19 10:15 DC 11/01/19 15:58 LIGIA RICH MD Nov 02, 2019 12:19
[2019-11-02 14:00] VITALS: BP 131/64
[2019-11-02] MEDS: MIRALAX *UNIT DOSE* 17GM PACKET PO PRN (15:50)
[2019-11-02] MEDS ORDERED: WARFARIN SOD 5 MG TAB PO ONE (17:00)
[2019-11-02] MEDS: TAMSULOSIN 0.4 MG CAP PO SCH (20:12)
[2019-11-02] MEDS: CETIRIZINE (ZyrTEC) 10 MG TAB PO SCH (20:12)
[2019-11-02] MEDS: SENNA 8.6 MG TAB (SENOKOT) PO SCH (20:12)
[2019-11-02 20:15] VITALS: BP 133/66
[2019-11-02] MEDS: LIDOCAINE 5% (LIDODERM) PATCH TD SCH (20:15)
[2019-11-02] MEDS ORDERED: methylPREDNISolone 4 MG TAB PO SCH (21:00)
[2019-11-03 06:19] VITALS: BP 159/77
[2019-11-03] MEDS: AMOXICILLIN 500 MG CAP PO SCH ×3 (06:23→20:14)
[2019-11-03] MEDS: FLUTICASONE HFA 110 MCG 12 GM INHALER (FLOVENT) INH SCH ×2 (07:30→19:14)
[2019-11-03] MEDS: IPRATROPIUM 0.5MG/ALBUTEROL 2.5MG INH SOL UD 3ML (DUONEB)(J7620) NEB SCH ×4 (07:30→19:15)
[2019-11-03 08:24] LABS: INR 2.16; PROTHROMBIN TIME 23.9 SECONDS (11.8-14.0)
[2019-11-03] MEDS: guaiFENesin 200 MG TAB PO SCH ×3 (08:25→20:14)
[2019-11-03] MEDS: ROSUVASTATIN 10 MG TAB (CRESTOR) PO SCH (08:25)
[2019-11-03] MEDS: ACETAMINOPHEN 500 MG TAB PO SCH ×3 (08:25→20:15)
[2019-11-03] MEDS: ASPIRIN 81 MG ENTERIC TAB PO SCH (08:26)
[2019-11-03] MEDS: FUROSEMIDE 20 MG TAB PO SCH (08:26)
[2019-11-03] MEDS: FOLIC ACID 1 MG TAB PO SCH (08:26)
[2019-11-03] MEDS: METOPROLOL TART 50 MG TAB PO SCH ×3 (08:26→20:15)
[2019-11-03] MEDS: lisinopriL 10 MG TAB PO SCH (08:26)
[2019-11-03] MEDS: allopurinoL 300 MG TAB PO SCH (08:26)
[2019-11-03] MEDS: ASCORBIC ACID 500 MG TAB PO SCH (08:26)
[2019-11-03] MEDS: methylPREDNISolone 4 MG TAB PO SCH ×4 (08:27→20:15)
[2019-11-03] MEDS: PANTOPRAZOLE 40MG TAB (PROTONIX) PO SCH ×2 (08:27→20:15)
[2019-11-03] MEDS: DOCUSATE SODIUM 100 MG CAP PO SCH ×2 (08:28→20:15)
[2019-11-03] MEDS: CLOPIDOGREL 75 MG TAB PO SCH (08:28)
[2019-11-03] MEDS: FERROUS SULFATE 325MG TAB PO SCH ×2 (08:29→20:14)
[2019-11-03] MEDS: FLUTICASONE PROP 0.05% NASAL SPRAY 16 GM (FLONASE) NARES SCH ×2 (08:29→20:16)
[2019-11-03] MEDS: POLYVINYL ALCOHOL OPHTH SOLN 15 ML(LIQUITEARS) OU SCH ×3 (08:29→20:16)
[2019-11-03] MEDS: SODIUM CHLORIDE NASAL 0.65% SPRAY BTL (OCEAN) SCH ×3 (08:30→20:16)
[2019-11-03] MEDS: **NOTE PATIENT COMMENT** MISC XX SCH (09:45)
--- NOTE | 2019-11-03 12:42 | IPNPDOC ---
PM&R Progress Note DATE OF SERVICE: Nov 03, 2019 Customer Counter Representative Progress Note Subjective: Patient seen in the kitchen with mild shortness of breath and sweating, stating he did not have chest pain or chest pressure. Per nursing and therapy, he had received his BP meds late and walked with nursing to therapy without a warm-up period or break prior to transitioning into the OT session. Patient was brought back to the room breathing more comfortably and troponins ordered. Patient seen about an hour later and told his cardiac enzymes were normal and emphasized the importance of pacing. REVIEW OF SYSTEMS: The following is a completed review of systems and has been reviewed. Review of systems otherwise unremarkable. PAIN: Patient self reports no pain EYES: No recent vision changes EARS, NOSE, & THROAT: No throat pain, or dysphagia, or rhinorrhea CARDIOVASCULAR: Denies chest pain or palpitations PULMONARY: Denies shortness of breath at rest, +exertional dyspnea (improving) GASTROINTESTINAL: Denies constipation/diarrhea GENITOURINARY: denies dysuria MUSCULOSKELETAL: generalized weakness NEUROLOGICAL:denies focal tremor or seizure activity HEMATOLOGICAL: denies easy bruising SKIN: sternal and chest wall incision PSYCHIATRIC: Unremarkable All other review of systems found to be negative. PHYSICAL EXAMINATION: VITAL SIGNS: Please see below. GENERAL: Pleasant and cooperative. No acute distress. HEENT: PERRL. Extraocular movements intact. Clear conjunctiva CARDIOVASCULAR: Regular rate and rhythm. No murmurs, rubs, or gallops LUNGS: Clear to auscultation bilaterally. No wheezes. No rhonchi, diminished at the bases ABDOMEN: Soft, nontender, nondistended. Positive bowel sounds. Normal active bowel sounds NEUROLOGICAL: Alert and oriented times three. Cranial nerves II through XII grossly intact. Sensation grossly intact in all 4 extremities EXTREMITIES: 5\\5 strength bilateral upper extremities. 5\\5 strength right lower extremity. 5/5 strength in left lower extremity. +bilat LE edema (improving) SKIN: sternal incision c/d/i, pacemaker incision c/d/i right calf with bruising, erythematous, and mildly TTP ASSESSMENT:79-year-old M with past medical history of HTN, CAD who presents status post CABGx6 complicated by long hospital course with generalized weakness and cardiac deconditioning PLAN: 1. Rehab- PT, OT advance gait training and endurance using energy conservation techniques-sternal and pacemaker precautions -discussed cardiac rehab goals with staff, going forward goal to schedule therapy for 45 minute sessions (2 in morning, 2 in afternoon) with aerobic activity not to exceed 30 minutes and can include rest breaks with additional designated warm-up and cool-off periods-patient encouraged to replicate these sessions at home and to use the RPE scale to self-monitor -goal max-exertion RPE 4-5 2.Cardiac: s/p CABGx6 and pacemaker in setting of newly diagnoses afib with tach-abundio syndrome-c/u metoprolol, ASA, Plavix, and Coumadin goal INR 2-3, medicine consulted to assist in management,increased frequency of beta-nitin for elevation in resting BPs- adjusted am dosing time to start at 7am to better prepare patient for therapy - patient with expected elevations on exertion with good recovery time back to baseline -call made to Dr. Means's office to expedite transfer of care from inpatient to outpatient cardiac rehab -HTN and systolic CHF with EF 40-45% c/u lisinopril, increased Lasix to 40mg daily and acewrap for LE edema, c/u fluid restrict, daily weights -HLD c/u statin 3. 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 ID: s/p course of Cefdinir for RLE cellulitis, monitor for worsening infection-improving -c/u amoxicillin for bacterial bronchitis and medrol dose pack for symptom management, c/u ICS as well-breathing and cough improving 5. RHeum: hx of gout, c/u allopurinol 6. DVT ppx: on coumadin, RIJ DVT on coumadin 7. GI ppx: protonix BID- FOBT Negative 8. Heme: anemia improving 8. Pain: tylneol prn 9. Psych- patient denies feeling depressed post-cardiac surgery and also denies feeling anxious 10. Dispo: 11-08-19 to home, progressing towards goals Allergies Coded Allergies: No Known Allergies (Unverified , 07/13/13) Vital Signs Vital Signs Date Time Temp Pulse Resp B/P (MAP) Pulse Ox O2 Delivery O2 Flow Rate FiO2 11/03/19 08:26 68 159/77 11/03/19 06:19 98.2 18 100 Room Air Laboratory Data Labs 24H Laboratory Tests 2 11/03/19 07:36: Prothrombin Time 23.9H, Prothromb Time International Ratio 2.16 11/03/19 09:31: Troponin I < 0.02 Microbiology Microbiology 10/31/19 Blood Culture - Preliminary, Resulted No Growth after 48 hours. All Specime... 10/31/19 Blood Culture - Preliminary, Resulted No Growth after 72 hours. All specime... 10/28/19 Stool Occult Blood (TRUDY) - Final, Complete 10/28/19 Gram Stain - Final, Complete 10/28/19 Sputum Culture - Final, Complete Streptococcus Constellatus Yeast Like Organism 10/26/19 Respiratory Virus Panel (PCR) (TRUDY) - Final, Complete Current Medications Current Medications Current Medications Medications (Trade) Dose Ordered Sig/Rohit Route PRN Reason Start Time Stop Time Status Last Admin Dose Admin Acetaminophen (Tylenol Tab) 1,000 mg TID PO 10/25/19 16:00 11/03/19 08:25 Albuterol/ Ipratropium (Duoneb (Ipr 0.5mg/Alb 2.5mg)) 3 ml RQID NEB 10/26/19 18:00 11/03/19 11:44 Allopurinol (Zyloprim) 300 mg DAILY PO 10/26/19 09:00 11/03/19 08:26 Amoxicillin (Amoxicillin) 500 mg Q8H PO 10/31/19 14:00 11/05/19 06:01 11/03/19 06:23 Artificial Tears ([place] Tears) 2 drop TID OU 10/25/19 16:00 11/03/19 08:29 Ascorbic Acid (Vitamin C) 500 mg DAILY PO 10/26/19 09:00 11/03/19 08:26 Aspirin (Ecotrin) 81 mg DAILY PO 10/26/19 09:00 11/03/19 08:26 Bisacodyl (Dulcolax Suppository) 10 mg DAILYPRN PRN [place] CONSTIPATION 10/25/19 13:00 Cefdinir (Omnicef) 300 mg BID PO 10/25/19 21:00 10/30/19 20:59 DC 10/30/19 20:30 Cetirizine HCl (ZyrTEC) 10 mg QHS PO 10/25/19 21:00 11/02/19 20:12 Cetylpyridinium Chloride (Cepacol) 1 janusz Q1HP PRN PO SORE THROAT 11/01/19 15:00 Clopidogrel Bisulfate (PLAVix) 75 mg DAILY PO 10/26/19 09:00 11/03/19 08:28 Docusate Sodium (Colace) 100 mg BID PO 10/25/19 21:00 11/03/19 08:28 Ferrous Sulfate (Ferrous Sulfate) 325 mg BID PO 10/25/19 21:00 11/03/19 08:29 Fluticasone Propionate (Flonase 0.05% Nasal [place]) 1 spray BID NARES 10/31/19 14:30 11/03/19 08:29 Fluticasone Propionate (Flovent Hfa 110 Mcg) 2 puff RBID INH 10/31/19 20:00 11/03/19 07:30 Folic Acid (Folic Acid) 1 mg DAILY PO 10/26/19 09:00 11/03/19 08:26 Furosemide (Lasix) 20 mg DAILY PO 10/26/19 09:00 10/27/19 12:03 DC 10/27/19 08:43 Furosemide (Lasix) 20 mg DAILY PO 11/03/19 09:00 11/03/19 08:26 Furosemide (Lasix) 40 mg DAILY PO 10/28/19 09:00 11/02/19 10:16 DC 11/02/19 09:09 Guaifenesin (Robitussin Tab) 400 mg TID PO 10/26/19 16:00 11/03/19 08:25 Home Med (Med Rec Complete!) ASDIRECTED XX 10/25/19 14:00 10/25/19 13:55 DC Ipratropium [place] (Atrovent 0.02%) 0.5 mg RTID INH 10/25/19 20:00 10/26/19 17:58 DC 10/25/19 20:36 Levofloxacin (Levaquin) 750 mg DAILY@06 PO 10/31/19 06:00 10/31/19 12:14 DC Lidocaine (Lidoderm Patch) 2 patch QHS TD 10/25/19 21:00 11/02/19 20:15 Lisinopril (Prinivil) 2.5 mg DAILY PO 10/26/19 09:00 10/31/19 09:15 DC 10/31/19 08:24 Lisinopril (Prinivil) 10 mg DAILY PO 11/01/19 09:00 11/03/19 08:26 Methylprednisolone (Medrol) 4 mg BID@08,21 PO 11/05/19 08:00 11/05/19 23:59 Methylprednisolone (Medrol) 4 mg BID@1230,18 PO 11/01/19 12:30 11/01/19 23:59 DC 11/01/19 17:06 Methylprednisolone (Medrol) 4 mg DAILY@08 PO 11/06/19 08:00 11/06/19 23:59 Methylprednisolone (Medrol) 4 mg QID@08,1230,18,21 PO 11/03/19 08:00 11/03/19 23:59 11/03/19 08:27 Methylprednisolone (Medrol) 4 mg TID@08,1230,18 PO 11/02/19 08:00 11/02/19 23:59 DC 11/02/19 17:11 Methylprednisolone (Medrol) 4 mg TID@08,1230,21 PO 11/04/19 08:00 11/04/19 23:59 Methylprednisolone (Medrol) 8 mg BID@08,21 PO 11/01/19 08:00 11/01/19 23:59 DC 11/01/19 22:10 Methylprednisolone (Medrol) 8 mg BID@1500,2100 PO 10/31/19 15:00 10/31/19 21:01 DC 10/31/19 20:59 Methylprednisolone (Medrol) 8 mg QHS PO 11/02/19 21:00 11/02/19 23:59 DC 11/02/19 20:18 Methylprednisolone (Medrol) medrol dose pack ASDIRECTED PO 10/31/19 14:15 UNV Metoprolol Tartrate (Lopressor) 50 mg BID PO 10/25/19 21:00 10/31/19 09:15 DC 10/31/19 08:24 Metoprolol Tartrate (Lopressor) 50 mg TID PO 10/31/19 16:00 11/03/19 08:26 Non-Formulary Medication ( See Comment Field Below ) REMOVE LIDODERM PATCH DAILY@0900 XX 10/26/19 09:00 11/02/19 09:13 Pantoprazole Sodium (Protonix) 40 mg BID PO 10/27/19 21:00 11/03/19 08:27 Pantoprazole Sodium (Protonix) 40 mg DAILY PO 10/26/19 09:00 10/27/19 12:08 DC 10/27/19 08:43 Polyethylene Glycol (Miralax) 1 pkt DAILY PRN PO CONSTIPATION 10/25/19 13:00 11/02/19 15:50 Potassium Chloride (Micro-K Extencaps) 10 meq DAILY PO 10/26/19 09:00 10/31/19 21:00 DC 10/31/19 08:23 Rosuvastatin Calcium (Crestor) 20 mg DAILY PO 10/26/19 09:00 11/03/19 08:25 Senna (Senokot) 1 tab QHS PO 10/25/19 21:00 11/02/19 20:12 Sodium Chloride ([place] Nasal [place]) 2 spray TID NA 10/31/19 16:00 11/03/19 08:30 Tamsulosin HCl (Flomax) 0.4 mg QHS PO 10/25/19 21:00 11/02/19 20:12 Trazodone HCl (Desyrel) 25 mg QHSP PRN PO INSOMNIA 10/25/19 16:45 10/26/19 01:39 Warfarin Sodium (Coumadin) 1.5 mg DAILY@17 PO 10/28/19 17:00 10/30/19 07:28 DC 10/29/19 17:17 Warfarin Sodium (Coumadin) 2 mg DAILY@17 PO 11/01/19 17:00 11/02/19 10:15 DC 11/01/19 15:58 Warfarin Sodium (Coumadin) 2.5 mg DAILY@17 PO 10/25/19 17:00 10/28/19 15:06 DC 10/27/19 16:43 Warfarin Sodium (Coumadin) 2.5 mg QPM@1700 PO 10/30/19 17:00 Cancel Warfarin Sodium (Coumadin) 3 mg DAILY@17 PO 10/30/19 17:00 10/31/19 09:16 DC 10/30/19 17:10 Warfarin Sodium (Coumadin) 5 mg DAILY@17 PO 10/31/19 17:00 11/01/19 09:58 DC 10/31/19 17:31 Warfarin Sodium (Coumadin) 5 mg DAILY@17 PO 11/01/19 17:00 11/02/19 10:15 DC 11/01/19 15:58 Warfarin Sodium (Coumadin) 7.5 mg DAILY@17 PO 11/03/19 17:00 LIGIA RICH MD Nov 03, 2019 12:42
[2019-11-03 14:00] VITALS: BP 136/66
[2019-11-03] MEDS ORDERED: WARFARIN SOD 7.5 MG TAB PO SCH (17:00)
[2019-11-03 20:00] VITALS: BP 137/69
[2019-11-03] MEDS: CETIRIZINE (ZyrTEC) 10 MG TAB PO SCH (20:14)
[2019-11-03] MEDS: SENNA 8.6 MG TAB (SENOKOT) PO SCH (20:15)
[2019-11-03] MEDS: TAMSULOSIN 0.4 MG CAP PO SCH (20:15)
[2019-11-03] MEDS: LIDOCAINE 5% (LIDODERM) PATCH TD SCH (20:16)
[2019-11-03] MEDS: MIRALAX *UNIT DOSE* 17GM PACKET PO PRN (20:23)
[2019-11-04 05:30] VITALS: BP 158/78
[2019-11-04] MEDS: AMOXICILLIN 500 MG CAP PO SCH ×3 (05:34→22:14)
[2019-11-04] MEDS: METOPROLOL TART 50 MG TAB PO SCH (06:45)
[2019-11-04] MEDS: IPRATROPIUM 0.5MG/ALBUTEROL 2.5MG INH SOL UD 3ML (DUONEB)(J7620) NEB SCH ×4 (07:06→19:49)
[2019-11-04] MEDS: FLUTICASONE HFA 110 MCG 12 GM INHALER (FLOVENT) INH SCH ×2 (07:06→19:49)
[2019-11-04 07:18] LABS: INR 2.84; PROTHROMBIN TIME 29.7 SECONDS (11.8-14.0)
[2019-11-04] MEDS: ROSUVASTATIN 10 MG TAB (CRESTOR) PO SCH (08:38)
[2019-11-04] MEDS: CLOPIDOGREL 75 MG TAB PO SCH (08:38)
[2019-11-04] MEDS: allopurinoL 300 MG TAB PO SCH (08:38)
[2019-11-04] MEDS: ASCORBIC ACID 500 MG TAB PO SCH (08:38)
[2019-11-04] MEDS: FERROUS SULFATE 325MG TAB PO SCH ×2 (08:38→22:17)
[2019-11-04] MEDS: lisinopriL 10 MG TAB PO SCH (08:38)
[2019-11-04] MEDS: ACETAMINOPHEN 500 MG TAB PO SCH ×3 (08:38→22:18)
[2019-11-04] MEDS: ASPIRIN 81 MG ENTERIC TAB PO SCH (08:39)
[2019-11-04] MEDS: FOLIC ACID 1 MG TAB PO SCH (08:39)
[2019-11-04] MEDS: PANTOPRAZOLE 40MG TAB (PROTONIX) PO SCH ×2 (08:39→22:17)
[2019-11-04] MEDS: DOCUSATE SODIUM 100 MG CAP PO SCH (08:39)
[2019-11-04] MEDS: methylPREDNISolone 4 MG TAB PO SCH ×3 (08:39→22:18)
[2019-11-04] MEDS: FUROSEMIDE 20 MG TAB PO SCH (08:39)
[2019-11-04] MEDS: guaiFENesin 200 MG TAB PO SCH ×3 (08:39→22:14)
[2019-11-04] MEDS: FLUTICASONE PROP 0.05% NASAL SPRAY 16 GM (FLONASE) NARES SCH ×2 (08:40→22:19)
[2019-11-04] MEDS: SODIUM CHLORIDE NASAL 0.65% SPRAY BTL (OCEAN) SCH ×3 (08:40→22:19)
[2019-11-04] MEDS: MIRALAX *UNIT DOSE* 17GM PACKET PO PRN (08:40)
[2019-11-04] MEDS ORDERED: SENNA 8.6 MG TAB (SENOKOT) PO SCH (09:00)
[2019-11-04] MEDS: POLYVINYL ALCOHOL OPHTH SOLN 15 ML(LIQUITEARS) OU SCH ×3 (09:10→22:19)
[2019-11-04] MEDS: **NOTE PATIENT COMMENT** MISC XX SCH (09:10)
[2019-11-04] MEDS ORDERED: lisinopriL 10 MG TAB PO ONE (13:00)
[2019-11-04 13:13] VITALS: BP 174/82
[2019-11-04] MEDS: METOPROLOL TART 25 MG TABLET PO SCH ×2 (13:15→22:15)
[2019-11-04] MEDS ORDERED: MOM 30ML SUSPENSION UDC PO PRN (13:15)
[2019-11-04 14:00] VITALS: BP 148/75
[2019-11-04] MEDS ORDERED: LACTULOSE 20 GM/30 ML SYRUP UD PO ONE (17:00)
[2019-11-04] MEDS: WARFARIN SOD 3 MG TAB PO SCH (17:16)
--- NOTE | 2019-11-04 17:25 | IPNPDOC ---
PM&R Progress Note DATE OF SERVICE: Nov 04, 2019 Head Of Quality Progress Note Subjective: Patient seen in his room stating he feels well, but has not had a bowel movement in 5 days and feels he needs to go. REVIEW OF SYSTEMS: The following is a completed review of systems and has been reviewed. Review of systems otherwise unremarkable. PAIN: Patient self reports no pain EYES: No recent vision changes EARS, NOSE, & THROAT: No throat pain, or dysphagia, or rhinorrhea CARDIOVASCULAR: Denies chest pain or palpitations PULMONARY: Denies shortness of breath at rest, +exertional dyspnea (improving) GASTROINTESTINAL: +constipation GENITOURINARY: denies dysuria MUSCULOSKELETAL: generalized weakness NEUROLOGICAL:denies focal tremor or seizure activity HEMATOLOGICAL: denies easy bruising SKIN: sternal and chest wall incision PSYCHIATRIC: Unremarkable All other review of systems found to be negative. PHYSICAL EXAMINATION: VITAL SIGNS: Please see below. GENERAL: Pleasant and cooperative. No acute distress. HEENT: PERRL. Extraocular movements intact. Clear conjunctiva CARDIOVASCULAR: Regular rate and rhythm. No murmurs, rubs, or gallops LUNGS: Clear to auscultation bilaterally. No wheezes. No rhonchi, diminished at the bases ABDOMEN: Soft, nontender, nondistended. Positive bowel sounds. Normal active bowel sounds NEUROLOGICAL: Alert and oriented times three. Cranial nerves II through XII grossly intact. Sensation grossly intact in all 4 extremities EXTREMITIES: 5\\5 strength bilateral upper extremities. 5\\5 strength right lower extremity. 5/5 strength in left lower extremity. +bilat LE edema (improving) SKIN: sternal incision c/d/i, pacemaker incision c/d/i right calf with bruising, erythematous, and mildly TTP ASSESSMENT:79-year-old M with past medical history of HTN, CAD who presents status post CABGx6 complicated by long hospital course with generalized weakness and cardiac deconditioning PLAN: 1. Rehab- PT, OT advance gait training and endurance using energy conservation techniques-sternal and pacemaker precautions -discussed cardiac rehab goals with staff, going forward goal to schedule therapy for 45 minute sessions (2 in morning, 2 in afternoon) with aerobic activity not to exceed 30 minutes and can include rest breaks with additional designated warm-up and cool-off periods-patient encouraged to replicate these sessions at home and to use the RPE scale to self-monitor -goal max-exertion RPE 4-5 2.Cardiac: s/p CABGx6 and pacemaker in setting of newly diagnoses afib with tach-abundio syndrome-c/u metoprolol, ASA, Plavix, and Coumadin goal INR 2-3, medicine consulted to assist in management,increased frequency of beta-nitin for elevation in resting BPs- adjusted am dosing time to start at 7am to better prepare patient for therapy and increased metoprolol ot 75 TID and lisinopril to 20mg daily - patient with expected elevations on exertion with good recovery time back to baseline -call made to Dr. Means's office to expedite transfer of care from inpatient to outpatient cardiac rehab -HTN and systolic CHF with EF 40-45% c/u lisinopril, increased Lasix to 40mg daily and acewrap for LE edema, c/u fluid restrict, daily weights -HLD c/u statin 3. 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 ID: s/p course of Cefdinir for RLE cellulitis, monitor for worsening infection-improving -c/u amoxicillin for bacterial bronchitis and medrol dose pack for symptom management, c/u ICS as well-breathing and cough improving 5. RHeum: hx of gout, c/u allopurinol 6. DVT ppx: on coumadin, RIJ DVT on coumadin 7. GI ppx: protonix BID- FOBT Negative -increased bowel meds for constipation, lactulose and suppository ordered for today 8. Heme: anemia improving 8. Pain: tylneol prn 9. Psych- patient denies feeling depressed post-cardiac surgery and also denies feeling anxious 10. Dispo: 11-08-19 to home, progressing towards goals Allergies Coded Allergies: No Known Allergies (Unverified , 07/13/13) Vital Signs Vital Signs Date Time Temp Pulse Resp B/P (MAP) Pulse Ox O2 Delivery O2 Flow Rate FiO2 11/04/19 14:00 97.0 64 20 148/75 (99) 96 Room Air Laboratory Data Labs 24H Laboratory Tests 2 11/04/19 06:42: Prothrombin Time 29.7H, Prothromb Time International Ratio 2.84 Microbiology Microbiology 10/31/19 Blood Culture - Preliminary, Resulted No Growth after 72 hours. All specime... 10/31/19 Blood Culture - Preliminary, Resulted No Growth after 72 hours. All specime... 10/28/19 Stool Occult Blood (TRUDY) - Final, Complete 10/28/19 Gram Stain - Final, Complete 10/28/19 Sputum Culture - Final, Complete Streptococcus Constellatus Yeast Like Organism 10/26/19 Respiratory Virus Panel (PCR) (TRUDY) - Final, Complete Current Medications Current Medications Current Medications Medications (Trade) Dose Ordered Sig/Rohit Route PRN Reason Start Time Stop Time Status Last Admin Dose Admin Acetaminophen (Tylenol Tab) 1,000 mg TID PO 10/25/19 16:00 11/04/19 15:00 Albuterol/ Ipratropium (Duoneb (Ipr 0.5mg/Alb 2.5mg)) 3 ml RQID NEB 10/26/19 18:00 11/04/19 15:29 Allopurinol (Zyloprim) 300 mg DAILY PO 10/26/19 09:00 11/04/19 08:38 Amoxicillin (Amoxicillin) 500 mg Q8H PO 10/31/19 14:00 11/05/19 06:01 11/04/19 13:15 Artificial Tears ([place] Tears) 2 drop TID OU 10/25/19 16:00 11/04/19 15:00 Ascorbic Acid (Vitamin C) 500 mg DAILY PO 10/26/19 09:00 11/04/19 08:38 Aspirin (Ecotrin) 81 mg DAILY PO 10/26/19 09:00 11/04/19 08:39 Bisacodyl (Dulcolax Suppository) 10 mg DAILYPRN PRN [place] CONSTIPATION 10/25/19 13:00 Cefdinir (Omnicef) 300 mg BID PO 10/25/19 21:00 10/30/19 20:59 DC 10/30/19 20:30 Cetirizine HCl (ZyrTEC) 10 mg QHS PO 10/25/19 21:00 11/03/19 20:14 Cetylpyridinium Chloride (Cepacol) 1 janusz Q1HP PRN PO SORE THROAT 11/01/19 15:00 Clopidogrel Bisulfate (PLAVix) 75 mg DAILY PO 10/26/19 09:00 11/04/19 08:38 Docusate Sodium (Colace) 100 mg BID PO 10/25/19 21:00 11/04/19 13:50 DC 11/04/19 08:39 Ferrous Sulfate (Ferrous Sulfate) 325 mg BID PO 10/25/19 21:00 11/04/19 08:38 Fluticasone Propionate (Flonase 0.05% Nasal [place]) 1 spray BID NARES 10/31/19 14:30 11/04/19 08:40 Fluticasone Propionate (Flovent Hfa 110 Mcg) 2 puff RBID INH 10/31/19 20:00 11/04/19 07:06 Folic Acid (Folic Acid) 1 mg DAILY PO 10/26/19 09:00 11/04/19 08:39 Furosemide (Lasix) 20 mg DAILY PO 10/26/19 09:00 10/27/19 12:03 DC 10/27/19 08:43 Furosemide (Lasix) 20 mg DAILY PO 11/03/19 09:00 11/04/19 08:39 Furosemide (Lasix) 40 mg DAILY PO 10/28/19 09:00 11/02/19 10:16 DC 11/02/19 09:09 Guaifenesin (Robitussin Tab) 400 mg TID PO 10/26/19 16:00 11/04/19 15:00 Home Med (Med Rec Complete!) ASDIRECTED XX 10/25/19 14:00 10/25/19 13:55 DC Ipratropium [place] (Atrovent 0.02%) 0.5 mg RTID INH 10/25/19 20:00 10/26/19 17:58 DC 10/25/19 20:36 Levofloxacin (Levaquin) 750 mg DAILY@06 PO 10/31/19 06:00 10/31/19 12:14 DC Lidocaine (Lidoderm Patch) 2 patch QHS TD 10/25/19 21:00 11/03/19 20:16 Lisinopril (Prinivil) 2.5 mg DAILY PO 10/26/19 09:00 10/31/19 09:15 DC 10/31/19 08:24 Lisinopril (Prinivil) 10 mg DAILY PO 11/01/19 09:00 11/04/19 12:32 DC 11/04/19 08:38 Lisinopril (Prinivil) 20 mg DAILY PO 11/05/19 09:00 Magnesium Hydroxide (Milk Of [place]) 30 ml DAILYPRN PRN PO CONSTIPATION 11/04/19 13:15 11/04/19 13:15 Methylprednisolone (Medrol) 4 mg BID@08,21 PO 11/05/19 08:00 11/05/19 23:59 Methylprednisolone (Medrol) 4 mg BID@1230,18 PO 11/01/19 12:30 11/01/19 23:59 DC 11/01/19 17:06 Methylprednisolone (Medrol) 4 mg DAILY@08 PO 11/06/19 08:00 11/06/19 23:59 Methylprednisolone (Medrol) 4 mg QID@08,1230,18,21 PO 11/03/19 08:00 11/03/19 23:59 DC 11/03/19 20:15 Methylprednisolone (Medrol) 4 mg TID@08,1230,18 PO 11/02/19 08:00 11/02/19 23:59 DC 11/02/19 17:11 Methylprednisolone (Medrol) 4 mg TID@08,1230,21 PO 11/04/19 08:00 11/04/19 23:59 11/04/19 12:15 Methylprednisolone (Medrol) 8 mg BID@08,21 PO 11/01/19 08:00 11/01/19 23:59 DC 11/01/19 22:10 Methylprednisolone (Medrol) 8 mg BID@1500,2100 PO 10/31/19 15:00 10/31/19 21:01 DC 10/31/19 20:59 Methylprednisolone (Medrol) 8 mg QHS PO 11/02/19 21:00 11/02/19 23:59 DC 11/02/19 20:18 Methylprednisolone (Medrol) medrol dose pack ASDIRECTED PO 10/31/19 14:15 UNV Metoprolol Tartrate (Lopressor) 50 mg BID PO 10/25/19 21:00 10/31/19 09:15 DC 10/31/19 08:24 Metoprolol Tartrate (Lopressor) 50 mg TID PO 10/31/19 16:00 11/03/19 12:54 DC 11/03/19 08:26 Metoprolol Tartrate (Lopressor) 50 mg TID@0700,1400,2100 PO 11/03/19 14:00 11/04/19 12:36 DC 11/04/19 06:45 Metoprolol Tartrate (Lopressor) 75 mg TID@0700,1400,2100 PO 11/04/19 14:00 11/04/19 13:15 Non-Formulary Medication ( See Comment Field Below ) REMOVE LIDODERM PATCH DAILY@0900 XX 10/26/19 09:00 11/04/19 09:10 Pantoprazole Sodium (Protonix) 40 mg BID PO 10/27/19 21:00 11/04/19 08:39 Pantoprazole Sodium (Protonix) 40 mg DAILY PO 10/26/19 09:00 10/27/19 12:08 DC 10/27/19 08:43 Polyethylene Glycol (Miralax) 1 pkt DAILY PRN PO CONSTIPATION 10/25/19 13:00 11/04/19 08:40 Potassium Chloride (Micro-K Extencaps) 10 meq DAILY PO 10/26/19 09:00 10/31/19 21:00 DC 10/31/19 08:23 Rosuvastatin Calcium (Crestor) 20 mg DAILY PO 10/26/19 09:00 11/04/19 08:38 Senna (Senokot) 1 tab QHS PO 10/25/19 21:00 11/04/19 13:50 DC 11/03/19 20:15 Senna (Senokot) 2 tab DAILY PO 11/04/19 09:00 11/04/19 14:58 Sodium Chloride ([place] Nasal [place]) 2 spray TID NA 10/31/19 16:00 11/04/19 15:00 Tamsulosin HCl (Flomax) 0.4 mg QHS PO 10/25/19 21:00 11/03/19 20:15 Trazodone HCl (Desyrel) 25 mg QHSP PRN PO INSOMNIA 10/25/19 16:45 10/26/19 01:39 Warfarin Sodium (Coumadin) 1.5 mg DAILY@17 PO 10/28/19 17:00 10/30/19 07:28 DC 10/29/19 17:17 Warfarin Sodium (Coumadin) 2 mg DAILY@17 PO 11/01/19 17:00 11/02/19 10:15 DC 11/01/19 15:58 Warfarin Sodium (Coumadin) 2.5 mg DAILY@17 PO 10/25/19 17:00 10/28/19 15:06 DC 10/27/19 16:43 Warfarin Sodium (Coumadin) 2.5 mg QPM@1700 PO 10/30/19 17:00 Cancel Warfarin Sodium (Coumadin) 3 mg DAILY@17 PO 10/30/19 17:00 10/31/19 09:16 DC 10/30/19 17:10 Warfarin Sodium (Coumadin) 5 mg DAILY@17 PO 10/31/19 17:00 11/01/19 09:58 DC 10/31/19 17:31 Warfarin Sodium (Coumadin) 5 mg DAILY@17 PO 11/01/19 17:00 11/02/19 10:15 DC 11/01/19 15:58 Warfarin Sodium (Coumadin) 6 mg DAILY@17 PO 11/04/19 17:00 11/04/19 17:16 Warfarin Sodium (Coumadin) 7.5 mg DAILY@17 PO 11/03/19 17:00 11/04/19 10:27 DC 11/03/19 17:43 LIGIA RICH MD Nov 04, 2019 17:25
[2019-11-04] MEDS ORDERED: BISACODYL 10 MG SUPP PR ONE (18:00)
[2019-11-04 21:15] VITALS: BP 150/80
[2019-11-04] MEDS: CETIRIZINE (ZyrTEC) 10 MG TAB PO SCH (22:16)
[2019-11-04] MEDS: TAMSULOSIN 0.4 MG CAP PO SCH (22:17)
[2019-11-04] MEDS: LIDOCAINE 5% (LIDODERM) PATCH TD SCH (22:18)
[2019-11-05] MEDS ORDERED: MAGNESIUM CITRATE 300 ML BTL PO ONE (01:15)
[2019-11-05] MEDS: SENOKOT S TAB PO SCH ×3 (01:30→21:08)
[2019-11-05 06:00] VITALS: BP 155/80
[2019-11-05] MEDS: AMOXICILLIN 500 MG CAP PO SCH (06:18)
[2019-11-05] MEDS: METOPROLOL TART 25 MG TABLET PO SCH ×3 (06:18→21:10)
[2019-11-05 07:06] LABS: BASO % 0.2 % (0.0-1.0); EOS # 0.1 10^3/uL (0.0-0.5); EOS % 0.9 % (0.0-3.0); HEMATOCRIT 33.4 % (42.0-52.0); LYMPH # 1.3 10^3/uL (1.5-5.0); LYMPH % 13.1 % (24.0-44.0); MEAN CORPUSCULAR HEMOGLOBIN 27.7 pg (27.0-33.0); MEAN CORPUSCULAR HGB CONC 29.9 g/dl (32.0-36.5); MEAN CORPUSCULAR VOLUME 92.5 fl (80.0-96.0); MONO # 1.1 10^3/uL (0.0-0.8); MONO % 11.1 % (0.0-5.0); NEUTROPHILS # 7.1 10^3/uL (1.5-8.5); NEUTROPHILS % 72.9 % (36.0-66.0); PLATELET COUNT, AUTOMATED 496 10^3/uL (150-450); RED BLOOD COUNT 3.61 10^6/uL (4.30-6.10); WHITE BLOOD COUNT 9.7 10^3/uL (4.0-10.0)
[2019-11-05 07:15] LABS: INR 3.02; PROTHROMBIN TIME 31.2 SECONDS (11.8-14.0)
[2019-11-05 07:26] LABS: BLOOD UREA NITROGEN 21 MG/DL (7-18); CALCIUM LEVEL 8.4 MG/DL (8.8-10.2); CARBON DIOXIDE LEVEL 30 MEQ/L (21-32); CHLORIDE LEVEL 102 MEQ/L (98-107); GLOMERULAR FILTRATION RATE > 60.0 (>42); GLUCOSE, FASTING 106 MG/DL (70-100); POTASSIUM SERUM 3.9 MEQ/L (3.5-5.1); SODIUM LEVEL 137 MEQ/L (136-145)
[2019-11-05] MEDS: FLUTICASONE HFA 110 MCG 12 GM INHALER (FLOVENT) INH SCH ×2 (07:54→20:10)
[2019-11-05] MEDS: IPRATROPIUM 0.5MG/ALBUTEROL 2.5MG INH SOL UD 3ML (DUONEB)(J7620) NEB SCH ×4 (07:54→20:10)
[2019-11-05] MEDS: ASPIRIN 81 MG ENTERIC TAB PO SCH (08:01)
[2019-11-05] MEDS: ACETAMINOPHEN 500 MG TAB PO SCH ×3 (08:02→21:10)
[2019-11-05] MEDS: ASCORBIC ACID 500 MG TAB PO SCH (08:02)
[2019-11-05] MEDS: CLOPIDOGREL 75 MG TAB PO SCH (08:03)
[2019-11-05] MEDS: FERROUS SULFATE 325MG TAB PO SCH ×2 (08:03→21:10)
[2019-11-05] MEDS: guaiFENesin 200 MG TAB PO SCH ×3 (08:03→21:09)
[2019-11-05] MEDS: FOLIC ACID 1 MG TAB PO SCH (08:03)
[2019-11-05] MEDS: FUROSEMIDE 20 MG TAB PO SCH (08:03)
[2019-11-05] MEDS: PANTOPRAZOLE 40MG TAB (PROTONIX) PO SCH ×2 (08:03→21:10)
[2019-11-05] MEDS: ROSUVASTATIN 10 MG TAB (CRESTOR) PO SCH (08:03)
[2019-11-05] MEDS: allopurinoL 300 MG TAB PO SCH (08:04)
[2019-11-05] MEDS: methylPREDNISolone 4 MG TAB PO SCH ×2 (08:04→21:09)
[2019-11-05] MEDS: lisinopriL 20 MG TAB PO SCH (08:04)
[2019-11-05] MEDS: FLUTICASONE PROP 0.05% NASAL SPRAY 16 GM (FLONASE) NARES SCH ×2 (08:08→21:11)
[2019-11-05] MEDS: POLYVINYL ALCOHOL OPHTH SOLN 15 ML(LIQUITEARS) OU SCH ×3 (08:08→21:11)
[2019-11-05] MEDS: SODIUM CHLORIDE NASAL 0.65% SPRAY BTL (OCEAN) SCH ×3 (08:08→21:11)
[2019-11-05] MEDS: **NOTE PATIENT COMMENT** MISC XX SCH (08:08)
[2019-11-05 14:00] VITALS: BP 166/78
[2019-11-05 15:00] VITALS: BP 150/70
[2019-11-05] MEDS: WARFARIN SOD 3 MG TAB PO SCH (16:29)
[2019-11-05 20:00] VITALS: BP 133/74
[2019-11-05] MEDS: LIDOCAINE 5% (LIDODERM) PATCH TD SCH (21:08)
[2019-11-05] MEDS: CETIRIZINE (ZyrTEC) 10 MG TAB PO SCH (21:10)
[2019-11-05] MEDS: TAMSULOSIN 0.4 MG CAP PO SCH (21:10)
[2019-11-06 06:00] VITALS: BP 146/78
[2019-11-06] MEDS: METOPROLOL TART 25 MG TABLET PO SCH ×3 (06:43→20:48)
[2019-11-06 07:23] LABS: INR 2.95; PROTHROMBIN TIME 30.7 SECONDS (11.8-14.0)
[2019-11-06] MEDS: ASCORBIC ACID 500 MG TAB PO SCH (07:54)
[2019-11-06] MEDS: guaiFENesin 200 MG TAB PO SCH ×3 (07:54→20:48)
[2019-11-06] MEDS: FERROUS SULFATE 325MG TAB PO SCH ×2 (07:54→20:47)
[2019-11-06] MEDS: allopurinoL 300 MG TAB PO SCH (07:54)
[2019-11-06] MEDS: ROSUVASTATIN 10 MG TAB (CRESTOR) PO SCH (07:55)
[2019-11-06] MEDS: lisinopriL 20 MG TAB PO SCH (07:55)
[2019-11-06] MEDS: CLOPIDOGREL 75 MG TAB PO SCH (07:55)
[2019-11-06] MEDS: PANTOPRAZOLE 40MG TAB (PROTONIX) PO SCH ×2 (07:55→20:47)
[2019-11-06] MEDS: FOLIC ACID 1 MG TAB PO SCH (07:55)
[2019-11-06] MEDS: ASPIRIN 81 MG ENTERIC TAB PO SCH (07:55)
[2019-11-06] MEDS: ACETAMINOPHEN 500 MG TAB PO SCH ×3 (07:56→20:48)
[2019-11-06] MEDS: FUROSEMIDE 20 MG TAB PO SCH (07:57)
[2019-11-06] MEDS: SENOKOT S TAB PO SCH ×2 (07:57→20:47)
[2019-11-06] MEDS: FLUTICASONE HFA 110 MCG 12 GM INHALER (FLOVENT) INH SCH ×2 (08:00→20:06)
[2019-11-06] MEDS: IPRATROPIUM 0.5MG/ALBUTEROL 2.5MG INH SOL UD 3ML (DUONEB)(J7620) NEB SCH ×4 (08:00→20:00)
[2019-11-06] MEDS ORDERED: methylPREDNISolone 4 MG TAB PO SCH (08:00)
[2019-11-06] MEDS: FLUTICASONE PROP 0.05% NASAL SPRAY 16 GM (FLONASE) NARES SCH ×2 (08:01→20:49)
[2019-11-06] MEDS: SODIUM CHLORIDE NASAL 0.65% SPRAY BTL (OCEAN) SCH ×3 (08:01→20:49)
[2019-11-06] MEDS: **NOTE PATIENT COMMENT** MISC XX SCH (08:02)
[2019-11-06] MEDS: POLYVINYL ALCOHOL OPHTH SOLN 15 ML(LIQUITEARS) OU SCH ×3 (08:02→20:49)
[2019-11-06 14:15] VITALS: BP 113/71
[2019-11-06] MEDS ORDERED: WARFARIN SOD 4 MG TAB PO ONE (17:00)
[2019-11-06 20:00] VITALS: BP 146/75
[2019-11-06] MEDS: LIDOCAINE 5% (LIDODERM) PATCH TD SCH (20:47)
[2019-11-06] MEDS: CETIRIZINE (ZyrTEC) 10 MG TAB PO SCH (20:47)
[2019-11-06] MEDS: TAMSULOSIN 0.4 MG CAP PO SCH (20:48)
[2019-11-07 06:00] VITALS: BP 123/70
[2019-11-07] MEDS: METOPROLOL TART 25 MG TABLET PO SCH ×3 (06:25→20:05)
[2019-11-07 06:54] LABS: INR 3.19; PROTHROMBIN TIME 32.6 SECONDS (11.8-14.0)
[2019-11-07] MEDS: FLUTICASONE HFA 110 MCG 12 GM INHALER (FLOVENT) INH SCH ×2 (08:09→19:54)
[2019-11-07] MEDS: IPRATROPIUM 0.5MG/ALBUTEROL 2.5MG INH SOL UD 3ML (DUONEB)(J7620) NEB SCH ×4 (08:09→19:54)
[2019-11-07] MEDS: FUROSEMIDE 20 MG TAB PO SCH (08:09)
[2019-11-07] MEDS: CLOPIDOGREL 75 MG TAB PO SCH (08:09)
[2019-11-07] MEDS: ROSUVASTATIN 10 MG TAB (CRESTOR) PO SCH (08:09)
[2019-11-07] MEDS: lisinopriL 20 MG TAB PO SCH (08:09)
[2019-11-07] MEDS: FOLIC ACID 1 MG TAB PO SCH (08:09)
[2019-11-07] MEDS: **NOTE PATIENT COMMENT** MISC XX SCH (08:10)
[2019-11-07] MEDS: FERROUS SULFATE 325MG TAB PO SCH ×2 (08:10→20:06)
[2019-11-07] MEDS: ACETAMINOPHEN 500 MG TAB PO SCH ×3 (08:10→20:07)
[2019-11-07] MEDS: SENOKOT S TAB PO SCH ×2 (08:10→20:06)
[2019-11-07] MEDS: ASCORBIC ACID 500 MG TAB PO SCH (08:10)
[2019-11-07] MEDS: guaiFENesin 200 MG TAB PO SCH ×3 (08:10→20:06)
[2019-11-07] MEDS: FLUTICASONE PROP 0.05% NASAL SPRAY 16 GM (FLONASE) NARES SCH ×2 (08:10→20:08)
[2019-11-07] MEDS: ASPIRIN 81 MG ENTERIC TAB PO SCH (08:10)
[2019-11-07] MEDS: allopurinoL 300 MG TAB PO SCH (08:10)
[2019-11-07] MEDS: PANTOPRAZOLE 40MG TAB (PROTONIX) PO SCH ×2 (08:10→20:06)
[2019-11-07] MEDS: SODIUM CHLORIDE NASAL 0.65% SPRAY BTL (OCEAN) SCH ×3 (08:11→20:07)
[2019-11-07] MEDS: POLYVINYL ALCOHOL OPHTH SOLN 15 ML(LIQUITEARS) OU SCH ×3 (08:11→20:07)
--- NOTE | 2019-11-07 13:43 | IPNPDOC ---
PM&R Progress Note DATE OF SERVICE: Nov 07, 2019 [employer] Progress Note Subjective: Patient seen in therapy stating he feels much better after having had a bowel movement over the weekend. REVIEW OF SYSTEMS: The following is a completed review of systems and has been reviewed. Review of systems otherwise unremarkable. PAIN: Patient self reports no pain EYES: No recent vision changes EARS, NOSE, & THROAT: No throat pain, or dysphagia, or rhinorrhea CARDIOVASCULAR: Denies chest pain or palpitations PULMONARY: Denies shortness of breath at rest, +exertional dyspnea (improving) GASTROINTESTINAL: +constipation (improving) GENITOURINARY: denies dysuria MUSCULOSKELETAL: generalized weakness NEUROLOGICAL:denies focal tremor or seizure activity HEMATOLOGICAL: denies easy bruising SKIN: sternal and chest wall incision PSYCHIATRIC: Unremarkable All other review of systems found to be negative. PHYSICAL EXAMINATION: VITAL SIGNS: Please see below. GENERAL: Pleasant and cooperative. No acute distress. HEENT: PERRL. Extraocular movements intact. Clear conjunctiva CARDIOVASCULAR: Regular rate and rhythm. No murmurs, rubs, or gallops LUNGS: Clear to auscultation bilaterally. No wheezes. No rhonchi, diminished at the bases ABDOMEN: Soft, nontender, nondistended. Positive bowel sounds. Normal active bowel sounds NEUROLOGICAL: Alert and oriented times three. Cranial nerves II through XII grossly intact. Sensation grossly intact in all 4 extremities EXTREMITIES: 5\\5 strength bilateral upper extremities. 5\\5 strength right lower extremity. 5/5 strength in left lower extremity. +bilat LE edema (improving) SKIN: sternal incision c/d/i, pacemaker incision c/d/i right calf with bruising, erythematous, and mildly TTP ASSESSMENT:79-year-old M with past medical history of HTN, CAD who presents status post CABGx6 complicated by long hospital course with generalized weakness and cardiac deconditioning PLAN: 1. Rehab- PT, OT advance gait training and endurance using energy conservation techniques-sternal and pacemaker precautions -discussed cardiac rehab goals with staff, going forward goal to schedule therapy for 45 minute sessions (2 in morning, 2 in afternoon) with aerobic activity not to exceed 30 minutes and can include rest breaks with additional designated warm-up and cool-off periods-patient encouraged to replicate these sessions at home and to use the RPE scale to self-monitor -goal max-exertion RPE 4-5 2.Cardiac: s/p CABGx6 and pacemaker in setting of newly diagnoses afib with tach-abundio syndrome-c/u metoprolol, ASA, Plavix, and Coumadin goal INR 2-3, medicine consulted to assist in management,increased frequency of beta-nitin for elevation in resting BPs- adjusted am dosing time to start at 7am to better prepare patient for therapy and increased metoprolol to 75 TID and increase lisinopril to 20mg BID - patient with expected elevations on exertion with good recovery time back to baseline -call made to Dr. Means's office to expedite transfer of care from inpatient to outpatient cardiac rehab -HTN and systolic CHF with EF 40-45% c/u lisinopril, c/u Lasix 20mg daily and acewrap for LE edema, c/u fluid restrict, daily weights -HLD c/u statin 3. 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 ID: s/p course of Cefdinir for RLE cellulitis, monitor for worsening infection-improving -s/p amoxicillin for bacterial bronchitis and s/p medrol dose pack for symptom management, c/u ICS as well-breathing and cough improving 5. RHeum: hx of gout, c/u allopurinol 6. DVT ppx: on coumadin for Afib and RIJ DVT (incidental finding on inhouse Chest CT) 7. GI ppx: protonix BID- FOBT Negative -increased bowel meds for constipation, lactulose and suppository ordered for today 8. Heme: anemia improving 8. Pain: Tylenol prn 9. Psych- patient denies feeling depressed post-cardiac surgery and also denies feeling anxious 10. Dispo: 11-08-19 to home, progressing towards goals Allergies Coded Allergies: No Known Allergies (Unverified , 07/13/13) Vital Signs Vital Signs Date Time Temp Pulse Resp B/P (MAP) Pulse Ox O2 Delivery O2 Flow Rate FiO2 11/07/19 08:09 123/70 11/07/19 06:25 68 11/07/19 06:00 97.2 18 95 Room Air Laboratory Data Labs 24H Laboratory Tests 2 11/07/19 06:29: Prothrombin Time 32.6H, Prothromb Time International Ratio 3.19 Microbiology Microbiology 10/31/19 Blood Culture - Final, Complete NO GROWTH AFTER 5 DAYS 10/31/19 Blood Culture - Final, Complete NO GROWTH AFTER 5 DAYS 10/28/19 Stool Occult Blood (TRUDY) - Final, Complete 10/28/19 Gram Stain - Final, Complete 10/28/19 Sputum Culture - Final, Complete Streptococcus Constellatus Yeast Like Organism Current Medications Current Medications Current Medications Medications (Trade) Dose Ordered Sig/Rohit Route PRN Reason Start Time Stop Time Status Last Admin Dose Admin Acetaminophen (Tylenol Tab) 1,000 mg TID PO 10/25/19 16:00 11/07/19 08:10 Albuterol/ Ipratropium (Duoneb (Ipr 0.5mg/Alb 2.5mg)) 3 ml RQID NEB 10/26/19 18:00 11/07/19 08:09 Allopurinol (Zyloprim) 300 mg DAILY PO 10/26/19 09:00 11/07/19 08:10 Amoxicillin (Amoxicillin) 500 mg Q8H PO 10/31/19 14:00 11/05/19 06:01 DC 11/05/19 06:18 Artificial Tears (Akwa Tears) 2 drop TID OU 10/25/19 16:00 11/07/19 08:11 Ascorbic Acid (Vitamin C) 500 mg DAILY PO 10/26/19 09:00 11/07/19 08:10 Aspirin (Ecotrin) 81 mg DAILY PO 10/26/19 09:00 11/07/19 08:10 Bisacodyl (Dulcolax Suppository) 10 mg DAILYPRN PRN DC CONSTIPATION 10/25/19 13:00 Cefdinir (Omnicef) 300 mg BID PO 10/25/19 21:00 10/30/19 20:59 DC 10/30/19 20:30 Cetirizine HCl (ZyrTEC) 10 mg QHS PO 10/25/19 21:00 11/06/19 20:47 Cetylpyridinium Chloride (Cepacol) 1 janusz Q1HP PRN PO SORE THROAT 11/01/19 15:00 Clopidogrel Bisulfate (PLAVix) 75 mg DAILY PO 10/26/19 09:00 11/07/19 08:09 Docusate Sodium (Colace) 100 mg BID PO 10/25/19 21:00 11/04/19 13:50 DC 11/04/19 08:39 Ferrous Sulfate (Ferrous Sulfate) 325 mg BID PO 10/25/19 21:00 11/07/19 08:10 Fluticasone Propionate (Flonase 0.05% Nasal [place]) 1 spray BID NARES 10/31/19 14:30 11/07/19 08:10 Fluticasone Propionate (Flovent Hfa 110 Mcg) 2 puff RBID INH 10/31/19 20:00 11/07/19 08:09 Folic Acid (Folic Acid) 1 mg DAILY PO 10/26/19 09:00 11/07/19 08:09 Furosemide (Lasix) 20 mg DAILY PO 10/26/19 09:00 10/27/19 12:03 DC 10/27/19 08:43 Furosemide (Lasix) 20 mg DAILY PO 11/03/19 09:00 11/07/19 08:09 Furosemide (Lasix) 40 mg DAILY PO 10/28/19 09:00 11/02/19 10:16 DC 11/02/19 09:09 Guaifenesin (Robitussin Tab) 400 mg TID PO 10/26/19 16:00 11/07/19 08:10 Home Med (Med Rec Complete!) ASDIRECTED XX 10/25/19 14:00 10/25/19 13:55 DC Ipratropium [place] (Atrovent 0.02%) 0.5 mg RTID INH 10/25/19 20:00 10/26/19 17:58 DC 10/25/19 20:36 Levofloxacin (Levaquin) 750 mg DAILY@06 PO 10/31/19 06:00 10/31/19 12:14 DC Lidocaine (Lidoderm Patch) 2 patch QHS TD 10/25/19 21:00 11/06/19 20:47 Lisinopril (Prinivil) 2.5 mg DAILY PO 10/26/19 09:00 10/31/19 09:15 DC 10/31/19 08:24 Lisinopril (Prinivil) 10 mg DAILY PO 11/01/19 09:00 11/04/19 12:32 DC 11/04/19 08:38 Lisinopril (Prinivil) 20 mg DAILY PO 11/05/19 09:00 11/07/19 10:42 DC 11/07/19 08:09 Lisinopril (Prinivil) 40 mg DAILY PO 11/08/19 09:00 Magnesium Hydroxide (Milk Of Magnesia) 30 ml DAILYPRN PRN PO CONSTIPATION 11/04/19 13:15 11/04/19 13:15 Methylprednisolone (Medrol) 4 mg BID@ PO 11/05/19 08:00 11/05/19 23:59 DC 11/05/19 21:09 Methylprednisolone (Medrol) 4 mg BID@1230,18 PO 11/01/19 12:30 11/01/19 23:59 DC 11/01/19 17:06 Methylprednisolone (Medrol) 4 mg DAILY@08 PO 11/06/19 08:00 11/06/19 23:59 DC 11/06/19 07:56 Methylprednisolone (Medrol) 4 mg QID@08,1230,18,21 PO 11/03/19 08:00 11/03/19 23:59 DC 11/03/19 20:15 Methylprednisolone (Medrol) 4 mg TID@08,1230,18 PO 11/02/19 08:00 11/02/19 23:59 DC 11/02/19 17:11 Methylprednisolone (Medrol) 4 mg TID@08,1230,21 PO 11/04/19 08:00 11/04/19 23:59 DC 11/04/19 22:18 Methylprednisolone (Medrol) 8 mg BID@, PO 11/01/19 08:00 11/01/19 23:59 DC 11/01/19 22:10 Methylprednisolone (Medrol) 8 mg BID@1500,2100 PO 10/31/19 15:00 10/31/19 21:01 DC 10/31/19 20:59 Methylprednisolone (Medrol) 8 mg QHS PO 11/02/19 21:00 11/02/19 23:59 DC 11/02/19 20:18 Methylprednisolone (Medrol) medrol dose pack ASDIRECTED PO 10/31/19 14:15 UNV Metoprolol Tartrate (Lopressor) 50 mg BID PO 10/25/19 21:00 10/31/19 09:15 DC 10/31/19 08:24 Metoprolol Tartrate (Lopressor) 50 mg TID PO 10/31/19 16:00 11/03/19 12:54 DC 11/03/19 08:26 Metoprolol Tartrate (Lopressor) 50 mg TID@0700,1400,2100 PO 11/03/19 14:00 11/04/19 12:36 DC 11/04/19 06:45 Metoprolol Tartrate (Lopressor) 75 mg TID@0700,1400,2100 PO 11/04/19 14:00 11/07/19 06:25 Non-Formulary Medication ( See Comment Field Below ) REMOVE LIDODERM PATCH DAILY@0900 XX 10/26/19 09:00 11/07/19 08:10 Pantoprazole Sodium (Protonix) 40 mg BID PO 10/27/19 21:00 11/07/19 08:10 Pantoprazole Sodium (Protonix) 40 mg DAILY PO 10/26/19 09:00 10/27/19 12:08 DC 10/27/19 08:43 Polyethylene Glycol (Miralax) 1 pkt DAILY PRN PO CONSTIPATION 10/25/19 13:00 11/04/19 08:40 Potassium Chloride (Micro-K Extencaps) 10 meq DAILY PO 10/26/19 09:00 10/31/19 21:00 DC 10/31/19 08:23 Rosuvastatin Calcium (Crestor) 20 mg DAILY PO 10/26/19 09:00 11/07/19 08:09 Senna (Senokot) 1 tab QHS PO 10/25/19 21:00 11/04/19 13:50 DC 11/03/19 20:15 Senna (Senokot) 2 tab DAILY PO 11/04/19 09:00 11/05/19 01:01 DC 11/04/19 14:58 Senna/Docusate Sodium (Senokot S) 2 tab BID PO 11/05/19 01:00 11/07/19 08:10 Sodium Chloride (Isabella Nasal [place]) 2 spray TID NA 10/31/19 16:00 11/07/19 08:11 Tamsulosin HCl (Flomax) 0.4 mg QHS PO 10/25/19 21:00 11/06/19 20:48 Trazodone HCl (Desyrel) 25 mg QHSP PRN PO INSOMNIA 10/25/19 16:45 11/07/19 10:40 DC 10/26/19 01:39 Warfarin Sodium (Coumadin) 1.5 mg DAILY@17 PO 10/28/19 17:00 10/30/19 07:28 DC 10/29/19 17:17 Warfarin Sodium (Coumadin) 2 mg DAILY@17 PO 11/01/19 17:00 11/02/19 10:15 DC 11/01/19 15:58 Warfarin Sodium (Coumadin) 2.5 mg DAILY@17 PO 10/25/19 17:00 10/28/19 15:06 DC 10/27/19 16:43 Warfarin Sodium (Coumadin) 2.5 mg QPM@1700 PO 10/30/19 17:00 Cancel Warfarin Sodium (Coumadin) 3 mg DAILY@17 PO 10/30/19 17:00 10/31/19 09:16 DC 10/30/19 17:10 Warfarin Sodium (Coumadin) 3 mg DAILY@17 PO 11/08/19 17:00 Warfarin Sodium (Coumadin) 5 mg DAILY@17 PO 10/31/19 17:00 11/01/19 09:58 DC 10/31/19 17:31 Warfarin Sodium (Coumadin) 5 mg DAILY@17 PO 11/01/19 17:00 11/02/19 10:15 DC 11/01/19 15:58 Warfarin Sodium (Coumadin) 6 mg DAILY@17 PO 11/04/19 17:00 11/06/19 12:06 DC 11/05/19 16:29 Warfarin Sodium (Coumadin) 7.5 mg DAILY@17 PO 11/03/19 17:00 11/04/19 10:27 NH 11/03/19 17:43 LIGIA RICH MD Nov 07, 2019 13:43
[2019-11-07 13:52] VITALS: BP 150/70
[2019-11-07] MEDS ORDERED: WARFARIN SOD 1 MG TAB PO ONE (17:00)
[2019-11-07 20:00] VITALS: BP 108/58
[2019-11-07] MEDS: CETIRIZINE (ZyrTEC) 10 MG TAB PO SCH (20:06)
[2019-11-07] MEDS: TAMSULOSIN 0.4 MG CAP PO SCH (20:06)
[2019-11-07] MEDS: LIDOCAINE 5% (LIDODERM) PATCH TD SCH (20:07)
[2019-11-07] MEDS ORDERED: lisinopriL 20 MG TAB PO ONE (21:00)
[2019-11-08 06:00] VITALS: BP 137/70
[2019-11-08] MEDS: METOPROLOL TART 25 MG TABLET PO SCH (06:20)
[2019-11-08 07:11] LABS: INR 2.71; PROTHROMBIN TIME 28.6 SECONDS (11.8-14.0)
[2019-11-08] MEDS: IPRATROPIUM 0.5MG/ALBUTEROL 2.5MG INH SOL UD 3ML (DUONEB)(J7620) NEB SCH ×2 (07:49→11:36)
[2019-11-08] MEDS: FLUTICASONE HFA 110 MCG 12 GM INHALER (FLOVENT) INH SCH (07:49)
[2019-11-08] MEDS: allopurinoL 300 MG TAB PO SCH (08:09)
[2019-11-08] MEDS: CLOPIDOGREL 75 MG TAB PO SCH (08:09)
[2019-11-08] MEDS: SENOKOT S TAB PO SCH (08:09)
[2019-11-08] MEDS: guaiFENesin 200 MG TAB PO SCH (08:09)
[2019-11-08] MEDS: ASCORBIC ACID 500 MG TAB PO SCH (08:10)
[2019-11-08] MEDS: PANTOPRAZOLE 40MG TAB (PROTONIX) PO SCH (08:10)
[2019-11-08] MEDS: ROSUVASTATIN 10 MG TAB (CRESTOR) PO SCH (08:10)
[2019-11-08] MEDS: ACETAMINOPHEN 500 MG TAB PO SCH (08:10)
[2019-11-08] MEDS: FOLIC ACID 1 MG TAB PO SCH (08:10)
[2019-11-08] MEDS: ASPIRIN 81 MG ENTERIC TAB PO SCH (08:10)
[2019-11-08] MEDS: FUROSEMIDE 20 MG TAB PO SCH (08:10)
[2019-11-08] MEDS: FERROUS SULFATE 325MG TAB PO SCH (08:10)
[2019-11-08] MEDS: FLUTICASONE PROP 0.05% NASAL SPRAY 16 GM (FLONASE) NARES SCH (08:11)
[2019-11-08] MEDS: SODIUM CHLORIDE NASAL 0.65% SPRAY BTL (OCEAN) SCH (08:11)
[2019-11-08 08:14] VITALS: BP 137/70
[2019-11-08] MEDS: **NOTE PATIENT COMMENT** MISC XX SCH (08:15)
[2019-11-08] MEDS: POLYVINYL ALCOHOL OPHTH SOLN 15 ML(LIQUITEARS) OU SCH (08:15)
[2019-11-08] MEDS ORDERED: lisinopriL 20 MG TAB PO SCH (09:00)
[2019-11-08] MEDS ORDERED: FERR325T18 PO (10:30)
[2019-11-08] MEDS ORDERED: FURO20TA2 PO (10:30)
[2019-11-08] MEDS ORDERED: METO1TAB87 PO (10:30)
[2019-11-08] MEDS ORDERED: FLOM0.4C39 PO (10:30)
[2019-11-08] MEDS ORDERED: CETI10TA PO (10:30)
[2019-11-08] MEDS ORDERED: ASPI81TAEC PO (10:30)
[2019-11-08] MEDS ORDERED: ZYLO300T6 PO (10:30)
[2019-11-08] MEDS ORDERED: CRES10TA PO (10:30)
[2019-11-08] MEDS ORDERED: ASCO50TA PO (10:30)
[2019-11-08] MEDS ORDERED: LISI-538 PO (10:30)
[2019-11-08] MEDS ORDERED: PANT40TA3 PO (10:30)
[2019-11-08] MEDS ORDERED: CLOP75TA2 PO (10:30)
[2019-11-08] MEDS ORDERED: FOLI1TAB11 PO (10:30)
[2019-11-08] MEDS ORDERED: COUM1TAB19 PO (10:30)
[2019-11-08 13:40] VITALS: BP 138/74
[2019-11-08] MEDS ORDERED: WARFARIN SOD 3 MG TAB PO SCH (17:00)
--- NOTE | 2019-11-11 07:44 | PMRDS ---
DATE OF ADMISSION: 10/25/2019 DATE OF DISCHARGE: 11/08/2019 CHIEF COMPLAINT/DISCHARGE DIAGNOSES: Coronary artery bypass graft times six and pacemaker placement. HISTORY OF PRESENT ILLNESS: 79M pmh HTN, HLD, gout, prostate cancer who presented to [facility] ED on 10-04-19 with chest pain, noted to have an NSTEMI and transferred to [facility] on a heparin drip and underwent cardiac catheterization on 10-05-19 which showed multiple stenotic vessels and underwent a 6-vessel CABG on 10-10-19. Had had post-op Afib with RVR with episodes of tachycardia and bradycardia for which a pacemaker was ultimately placed on 10-18-19. He also had a post-op ileus and urinary retention for which a Valles was placed then later removed. He developed RLE harvest side cellulitis and treated with IV antibiotics then transitioned to po. He was started on Coumadin for Afib, evaluated by therapy and noted to have impairments in ADLs and mobility below his prior level of function and deemed medically appropriate for discharge to ARU on 10-25-19. PAST MEDICAL HISTORY: As per history of present illness (HPI). HOSPITAL COURSE: The patient was admitted and enrolled in a comprehensive physical therapy (PT)/occupational therapy (OT) program. He received 24-hour nursing supervision, and weekly team meetings were held to discuss his progress. The patient was initiated into a cardiac rehabilitation stage I therapy program with emphasis placed on aerobic activity to level of tolerance. The patient's blood pressure medications were increased due to increased blood pressures with exercise. The patient made gradual and consistent gains in his overall endurance. He was started on a course of amoxicillin for bacterial bronchitis and a Medrol Dosepak in addition to inhaled corticosteroids with improvement in his overall symptoms. A chest x-ray had been ordered for concern for pneumonia, which showed a paratracheal mediastinal mass. CT chest was ordered with contrast, confirming that the mass was a hematoma, thought to be due to postoperative changes and discussed with [facility] Radiology, who considered the size of the mass to be relatively the same on x-ray to x-ray comparison. There was an incidental finding on CT chest of a right internal jugular deep vein thrombosis (DVT). Patient was treated with Coumadin for his atrial fibrillation and in addition provided treatment for the DVT with anticoagulation. Fecal occult blood test (FOBT) was negative, and he was maintained on Protonix twice a day while being on two antiplatelets and Coumadin. The patient denies feeling depressed or anxious postoperatively, so treatment for depression and anxiety was deferred. He made gains in his therapy overall and was deemed medically and functionally safe to return home. DISCHARGE MEDICATIONS: As per instructions. FUNCTIONAL HISTORY ON DISCHARGE: The patient was modified independent for functional transfers, able to ambulate 50 feet. In occupational therapy the patient was modified independent for grooming, toileting, and standby assist for tub transfers. Thank you for this referral
== END 2019-11-08 13:55 | disposition home health service (06) | DRG 949 ==
LOC: M PM&R 12:40
PROVIDERS: ADMIT Physical Medicine & Rehabilitation; ATTEND Physical Medicine & Rehabilitation
DX: Z48.812 Encounter for surgical aftercare following surgery on the circulatory system (principal); I21.4 Non-ST elevation (NSTEMI) myocardial infarction; I50.20 Unspecified systolic (congestive) heart failure; L03.115 Cellulitis of right lower limb; I97.631 Postprocedural hematoma of a circulatory system organ or structure following cardiac bypass; Z95.0 Presence of cardiac pacemaker; M10.9 Gout, unspecified; I12.9 Hypertensive chronic kidney disease with stage 1 through stage 4 chronic kidney disease, or unspecified chronic kidney disease; C61 Malignant neoplasm of prostate; Z95.1 Presence of aortocoronary bypass graft; I48.91 Unspecified atrial fibrillation; I49.5 Sick sinus syndrome; Z79.01 Long term (current) use of anticoagulants; Z79.899 Other long term (current) drug therapy; Z79.82 Long term (current) use of aspirin; I25.10 Atherosclerotic heart disease of native coronary artery without angina pectoris; D64.9 Anemia, unspecified

== ENCOUNTER → 2019-11-09 | Outpatient (REF) | payer MEDICARE ==
[~2019-11-09] MED LIST changes: +ACET-907 PO; +ASCO50TA PO; +ASPI81CH33 PO; +ASPI81TAEC PO; +CEFE2INJ2 IV; +CETI10TA PO; +CETI10TA4 PO; +CLOP75TA2 PO; +COUM1TAB19 PO; +CRES10TA PO; +FAMO1TAB11 PO; +FERR1TAB8 PO; +FERR325T18 PO; +FLOM0.4C39 PO; +FOLI1TAB11 PO; +FURO20TA2 PO; +HEPA500057 INJ; +LIDO5TD TOP; +LISI-1046 PO; +LISI-538 PO; +MAGN1INJ2 IV; +MELA5TAB7 PO; +METO1TAB87 PO; +METO50TA7 PO; +MOVE1TAB PO; +PANT40TA3 PO; +PLAV1TAB2 PO; +POTA10CA32 PO; +REFR0.1D OU; +VITA-158 PO; +WARF-18 PO; +ZYLO300T6 PO
[2019-11-09 15:51] LABS: INR 1.99; PROTHROMBIN TIME 22.4 SECONDS (11.8-14.0)
== END ==
LOC: M SHH 12:54
PROVIDERS: ATTEND Internal Medicine
DX: Z79.01 Long term (current) use of anticoagulants (principal)

== ENCOUNTER → 2019-11-11 | Outpatient (REF) | payer MEDICARE ==
[2019-11-11 15:53] LABS: INR 1.55; PROTHROMBIN TIME 18.4 SECONDS (11.8-14.0)
== END ==
LOC: M SHH 15:14
PROVIDERS: ATTEND Internal Medicine Cardiovascular Disease
DX: I48.0 Paroxysmal atrial fibrillation (principal)

== ENCOUNTER → 2019-11-16 | Outpatient (REF) | payer MEDICARE ==
[2019-11-16 12:27] LABS: INR 1.34; PROTHROMBIN TIME 16.3 SECONDS (11.8-14.0)
== END ==
LOC: M SHH 11:17
PROVIDERS: ATTEND Internal Medicine Cardiovascular Disease
DX: I48.0 Paroxysmal atrial fibrillation (principal)

== ENCOUNTER 2019-12-07 14:01 | Outpatient (RCR) | payer MEDICARE ==
--- NOTE | 2019-11-21 15:08 | CARECAPL ---
Assessment Account #s: Initial Assessment General Diagnoses: CABG, NSTEMI Date of event: Oct 10, 2019 Physician: Hali Espinoza MD Allergies: Coded Allergies: No Known Allergies (Unverified , 07/13/13) Risk strat for cardiac event: High Exercise Assessment: Initial Assessment Stages of change: Pre-contemplation Exercise Prescription Plan Educate on cardiovascular disease and increase endurance, strength and flexibility through a monitored exercise program. Modalities initiated: Treadmill (will add 0.5 for 6 minutes), Nustep (will add level 1 for 6 minutes), Arm Aerometer (will add level 1 for 5 minutes), Dumbells (will add 1lb), Recumbent Bike (will add level 1 for 5 minutes) Frequency: 3 Duration (Minutes) 30 - 60 minutes total exercise a day. 15 - 20 work intervals in minutes. PRN rest intervals in minutes. Functional Capacity Goal Sustained Metabolic Equivalent of a task (MET) goal of 2.0-3.0 for 15-20 minutes. Intensity: 3-Moderate Progression (METS) Increase by: 0.5 METS every: 3-5 sessions Angina with ex: No Target Heart Rate rest + 35-40 per beta nitin therapy. Resistance Training: Yes Weight (pounds): 1 Reps: 6-8 Medications Scheduled Allopurinol (Zyloprim), 300 MG PO DAILY Ascorbic Acid (Vitamin C), 500 MG PO DAILY Cetirizine HCl (Cetirizine HCl), 10 MG PO QHS, (Reported) Clopidogrel Bisulfate (Clopidogrel), 75 MG PO DAILY Ferrous Sulfate (Ferrous Sulfate), 325 MG PO BID Folic Acid (Folic Acid), 1 MG PO DAILY Furosemide (Furosemide), 20 MG PO DAILY Glucosam/Chond/Hyalu/Cf Borate (Move Free Joint Health Tablet), 3 TAB PO DAILY, (Reported) Lisinopril (Lisinopril), 40 MG PO DAILY Metoprolol Tartrate (Metoprolol Tartrate), 75 MG PO TID@0700,1400,2100 Pantoprazole Sodium (Pantoprazole Sodium), 40 MG PO BID Simvastatin (Simvastatin), 40 MG PO QPM, (Reported) Tamsulosin HCl (Flomax), 0.4 MG PO QHS Warfarin Sodium (Coumadin), 3 MG PO DAILY@17 Scheduled PRN Acetaminophen (Tylenol), 650 MG PO Q6H PRN for MILD PAIN (PS 1-4), (Reported) Carboxymethylcellulose Sodium (Refresh Plus), 1 DROP OU TID PRN for DRY EYES, (Reported) Discontinued Medications Allopurinol (Zyloprim), 300 MG PO DAILY, (Reported) Discontinued Reason: Pt states not taking Ascorbic Acid (Vitamin C), 500 MG PO DAILY, (Reported) Discontinued Reason: Pt states not taking Aspirin (Aspirin), 81 MG PO DAILY, (Reported) Discontinued Reason: Pt states not taking Aspirin (Aspirin EC), 81 MG PO DAILY Discontinued Reason: Pt states not taking Cetirizine HCl (Cetirizine HCl), 10 MG PO QHS Discontinued Reason: Pt states not taking Clopidogrel Bisulfate (Plavix), 75 MG PO DAILY, (Reported) Discontinued Reason: Pt states not taking Ferrous Sulfate (Ferrous Sulfate), 325 MG PO BID, (Reported) Discontinued Reason: Pt states not taking Folic Acid (Folic Acid), 1 MG PO DAILY, (Reported) Discontinued Reason: Pt states not taking Furosemide (Furosemide), 20 MG PO DAILY, (Reported) Discontinued Reason: Pt states not taking Rosuvastatin Calcium (Crestor), 20 MG PO DAILY Discontinued Reason: Pt states not taking Tamsulosin HCl (Flomax), 0.4 MG PO QHS, (Reported) Discontinued Reason: Pt states not taking Education Goals Met: No Target Goals Individual exercise Rx (1) BP 140/90 or 130/80 if DM or CKD (1) Aerobic active 30+min 5 days per week (1) Nutrition Date: Nov 21, 2019 Assessment: Initial Assessment Stages of change: Pre-contemplation Diabetes Diabetes: No Monitor Blood Sugar at home: No Weight Management Weight (lbs): 203.8 Height (inches): 67 Waist Circumference (Inches): 44 BMI: 31.79 Weight goal: 194 Special Diet: low salt, low-fat Alcohol: special Alcohol Type: beer, wine Alcohol Amount: 1 Diet Access Tool: Rate your plate Score: 53 Referral to Diabetes education: No Referral to lipid clinic: No Referral to weight mangement p: Yes (referral to [facility] for weight loss and prediabetic classes) Education Goals Met: No Target goal LDL-C<100 if triglycerides are >200 Non-HDL-C should be <130 (1) LDL-C<70 for high risk patients (4) HbA1c<7% (1) BMI<25 Waist cir<40in M/<35in F (1) Education Date: Nov 21, 2019 Assessment: Initial Assessment Learning Barriers: cognitive Knowledge Test Score: 8 Stages of change: Pre-contemplation Family Support: Yes Tobacco use: No Quit: >6 months (quit 40 years ago.) Education Goals Met: No Target Goals Complete cessation of tobacco use (1). Psychosocial Date: Nov 21, 2019 Assessment: Initial Assessment Psych Test (Initial/Discharge) Tool Used: Other (PH-Q 9) Score: 1 Stages of change: Pre-contemplation Intervention Physician Consult: No Physician Referral: No Psychotropic medication none Education Goals Met: No Target Goal Assess presence or absence of depression using a valid screening tool (1). Maximize coping skills (2). Positive support system (2). Patient/Program Goal Preventative Medication: Yes Clopidogrel, Yes Beta blockade, Yes SUJIT Inhibitor, Yes Statin/OTR lipid Lowering, Yes Other (coumadin) Fall Risk Assess: Yes (no fall risk) Provider Assessment Provider Assessment: Proceed with rehab Iva Sánchez RN Nov 21, 2019 15:08
[2019-11-25 13:32] VITALS: BP 130/72
[2019-11-25 13:50] VITALS: BP 170/92
[2019-11-25 14:19] VITALS: BP 140/70
[2019-11-25 14:42] VITALS: BP_SYST 130; BP_SYST 172; BP_DIAS 72; BP_DIAS 90
[2019-11-28 13:20] VITALS: BP 150/88
[2019-11-28 13:44] VITALS: BP 144/70
[2019-11-28 14:34] VITALS: BP 112/74
[2019-11-30 13:25] VITALS: BP 140/68
[2019-11-30 14:05] VITALS: BP 154/90
[2019-11-30 14:25] VITALS: BP 100/58
[2019-12-02 13:47] VITALS: BP 156/86
[2019-12-02 14:20] VITALS: BP 112/66
[2019-12-05 13:21] VITALS: BP 122/80
[2019-12-05 13:40] VITALS: BP 158/88
[2019-12-05 14:21] VITALS: BP 104/60
[~2019-12-07] VITALS: Ht 170.2 cm; Wt 91.4 kg
[2019-12-07 13:14] VITALS: BP 118/80
[2019-12-07 13:40] VITALS: BP 180/100
[2019-12-07 14:25] VITALS: BP 122/80
== END 2019-12-10 ==
LOC: M CR 14:01
PROVIDERS: ATTEND Internal Medicine Cardiovascular Disease
DX: Z47.89 Encounter for other orthopedic aftercare (principal); Z95.1 Presence of aortocoronary bypass graft; I21.3 ST elevation (STEMI) myocardial infarction of unspecified site

== ENCOUNTER 2019-12-12 13:40 | Outpatient (RCR) | payer MEDICARE ==
[~2019-12-12] VITALS: Ht 170.2 cm; Wt 90.0 kg
[2019-12-12 14:36] VITALS: BP_SYST 118; BP_SYST 142; BP_SYST 154; BP_DIAS 100; BP_DIAS 80; BP_DIAS 82
[2019-12-14 15:07] VITALS: BP 130/88
[2019-12-14 15:09] VITALS: BP_SYST 108; BP_SYST 180; BP_DIAS 110; BP_DIAS 60
--- NOTE | 2019-12-15 17:52 | CARECAPL ---
Assessment Account #s: Re-Assessment I General Diagnoses: CABG Date of event: Oct 10, 2019 Physician: Hali Espinoza MD Allergies: Coded Allergies: No Known Allergies (Unverified , 07/13/13) Date Entered Program: Nov 25, 2019 Risk strat for cardiac event: High Exercise Assessment: Re-Assessment I Stages of change: Contemplate Exercise Prescription Plan TO EDUCATE AND BUILD ENDURANCE THROUGH MONITORED EXERCISE PROGRAM Modalities initiated: Treadmill (METS=2.09/RPE=4), Nustep (METS=4.4/RPE=3), Arm Aerometer (METS=1.9/RPE=2), Dumbells (2#/RPE=4), Recumbent Bike (METS=3.7/RPE=4) Frequency: 3 Duration (Minutes) 30 - 60 minutes total exercise a day. 15 - 20 work intervals in minutes. PRN rest intervals in minutes. Functional Capacity Goal Sustained Metabolic Equivalent of a task (MET) goal of 3.0-4.0 for 15-20 minutes. Intensity: 3-Moderate Progression (METS) Increase by: 0.5 METS every: 5 sessions as tolerated Angina with ex: No Target Heart Rate REST + 35-40 PER BETA NADIR THERAPY Resistance Training: Yes Weight (pounds): 2 Reps: 8-12 Resting 130/88 Peak Exercise BP 180/110 Medications Scheduled Allopurinol (Zyloprim), 300 MG PO DAILY Ascorbic Acid (Vitamin C), 500 MG PO DAILY Cetirizine HCl (Cetirizine HCl), 10 MG PO QHS, (Reported) Clopidogrel Bisulfate (Clopidogrel), 75 MG PO DAILY Ferrous Sulfate (Ferrous Sulfate), 325 MG PO BID Folic Acid (Folic Acid), 1 MG PO DAILY Furosemide (Furosemide), 20 MG PO DAILY Glucosam/Chond/Hyalu/Cf Borate (Move Free Joint Health Tablet), 3 TAB PO DAILY, (Reported) Lisinopril (Lisinopril), 40 MG PO DAILY Metoprolol Tartrate (Metoprolol Tartrate), 75 MG PO TID@0700,1400,2100 Pantoprazole Sodium (Pantoprazole Sodium), 40 MG PO BID Simvastatin (Simvastatin), 40 MG PO QPM, (Reported) Tamsulosin HCl (Flomax), 0.4 MG PO QHS Warfarin Sodium (Coumadin), 3 MG PO DAILY@17 Scheduled PRN Acetaminophen (Tylenol), 650 MG PO Q6H PRN for MILD PAIN (PS 1-4), (Reported) Carboxymethylcellulose Sodium (Refresh Plus), 1 DROP OU TID PRN for DRY EYES, (Reported) Current BP 108/80 Med Change: No Intervention Home exercise: Type (WALKING, HAND WEIGHTS, JOIN LOCAL GYM), Frequency (3-5 DAYS PER WEEK), Duration (30-60 MINUTES) Resistance Training: Yes Education: Self pulse (INSTRUCTED PATIENT TO TAKE OWN PULSE), Ex safety (PATIENT VERBALIZES UNDERSTANDING OF IMPORTANCE OF WARM UP AND COOL DOWN, AND STAYING HYDRATED PRIOR TO, DURING, AND FOLLOWING EXERCISE), S/S to report (PATIENT VERBALIZES UNDERSTANDING TO REPORT CHEST PAIN,PRESSURE, SOB, N/V, ANY OTHER PAIN), Low NA diet (PATIENT VERBALIZES THAT HE IS TO AVOID SALT IN HIS DIET), BP medication (REVIEWED ACTION/PURPOSE OF METOPROLOL AND LISINOPRIL), RPE Scale (PATIENT DEMONSTRATES INDEPENDENT USE OF RPE SCALE DURING EXERCISE SESSION), Equipment orientation (ORIENTED TO EACH PIECE OF EQUIPMENT USED), warm up/cool down (PATIENT DEMONSTRATES INDEPENDENTLY WARM UP AND COOL DOWN PRIOR TO AND FOLLOWING EXERCISE), Understand BP (DISCUSSED IDEAL B/P AND PATIENT'S OWN B/P), Physical Active (PATIENT VERBALIZES UNDERSTANDING OF IMPORTANCE OF CONTINUED EXERCISE FOLLOWING COMPLETION OF CARDIAC REHAB PROGRAM) Education Goals Met: No (PROGRESSING TOWARD GOALS) Target Goals Individual exercise Rx (1) BP 140/90 or 130/80 if DM or CKD (1) Aerobic active 30+min 5 days per week (1) Nutrition Date: Dec 15, 2019 Assessment: Re-Assessment I Stages of change: Contemplate Lipid- med/supplement SIMVASTATIN Med Change: No Diabetes Diabetes: No Monitor Blood Sugar at home: No Medication Change: No Weight Management Weight (lbs): 201 Special Diet: low salt, low-fat Alcohol: special Alcohol Type: beer, wine Alcohol Amount: 1 Current Weight (pounds): 201 Intervention Studio Producer Consult: No Nurse/patient discussion: Yes Dietary Goals TO MAKE HEART HEALTHY CHOICES WITH SMALLER PORTIONS Diet Class: Yes (WILL SEE PRINTING BINDERY ASSISTANT WHILE IN CARDIAC REHAB PROGRAM) Referral to Diabetes education: No Referral to lipid clinic: No Referral to weight mangement p: No Education Eating Healthy Education Goals Met: No (PROGRESSING TOWARD GOALS) Target goal LDL-C<100 if triglycerides are >200 Non-HDL-C should be <130 (1) LDL-C<70 for high risk patients (4) HbA1c<7% (1) BMI<25 Waist cir<40in M/<35in F (1) Education Date: Dec 15, 2019 Assessment: Re-Assessment I Learning Barriers: ready Stages of change: Contemplate Family Support: Yes Tobacco use: No Tobacco Use Smokeless tobacco: No Intervention Referral to smoking cessation: No Individual education and couns: No Tobacco Adjunct: No Education class schedule given: No Attended education classes: No Education: CAD (PATIENT STATES THAT HIGH CHOLESTEROL CLOGS ARTERIES LEADING TO CAD), Risk factors (PATIENT STATES THAT BEING OVER WEIGHT, DIABETES, AND ELEVATED CHOLESTEROL ARE RISK FACTORS OF CAD), med compliance (PATIENT VERBALIZES UNDERSTANDING OF IMPORTANCE OF TAKING MEDICATIONS ARE PRESCRIBED), cardiac A&P (REVIEWED HANDOUTS OF CARDIAC ANATOMY AND PHYSIOLOGY), Angina S/S (PATIENT VERBALIZES THAT CHEST PAIN/PRESSURE/SOB/N&V CAN BE S/S OF ANGINA), Sexuality (PATIENT IS AWARE THAT HE NEEDS MD CLEARANCE PRIOR TO SEXUAL ACTIVITY) Education Goals Met: No (PROGRESSING TOWARD GOALS) Target Goals Complete cessation of tobacco use (1). Psychosocial Date: Dec 15, 2019 Assessment: Re-Assessment I Stages of change: Contemplate Intervention Physician Consult: No Physician Referral: No Med Change: No Stress Management Class: No Uses Stress Management Skills: Yes Education Education: Coping Techniques (PATIENT STATES THAT HE SHOULD TALK WITH FRIENDS/FAMILY REGARDING HIS STRESS ), S/S depression (PATIENT STATES THAT CRYING, WITHDRAWAL, LACK OF APPETITE ARE S/S OF DEPRESSION), Relaxation Techniques (PATIENT STATES THAT LISTENING TO MUSIC, READING AND EXERCISE HELP WITH RELAXATION) Education Goals Met: No (PROGRESSING TOWARD GOALS) Target Goal Assess presence or absence of depression using a valid screening tool (1). Maximize coping skills (2). Positive support system (2). Patient/Program Goal Preventative Medication: Yes Clopidogrel, Yes Beta blockade, Yes SUJIT Inhibitor, Yes Statin/OTR lipid Lowering, Yes Other (COUMADIN) Fall Risk Assess: Yes (NOT A FALL RISK) Provider Assessment Session Number: 8 Provider Assessment: Proceed with rehab John Acuña RN Dec 15, 2019 17:52
[2019-12-16 12:53] VITALS: BP 112/80
[2019-12-16 13:20] VITALS: BP 170/90
[2019-12-16 14:19] VITALS: BP 110/80
[2019-12-19 12:42] VITALS: BP 142/70
[2019-12-19 13:30] VITALS: BP 170/90
[2019-12-19 14:09] VITALS: BP 118/80
[2019-12-21 12:41] VITALS: BP 132/72
[2019-12-21 13:14] VITALS: BP 152/86
[2019-12-21 13:58] VITALS: BP 92/64
[2019-12-23 10:07] VITALS: BP 118/70
[2019-12-23 10:40] VITALS: BP 150/90
[2019-12-23 11:28] VITALS: BP 118/74
[2019-12-26 12:43] VITALS: BP 138/80
[2019-12-26 13:41] VITALS: BP 140/90
[2019-12-26 14:23] VITALS: BP 112/70
--- NOTE | 2019-12-30 13:45 | CARECAPL ---
General Allergies: Coded Allergies: No Known Allergies (Unverified , 07/13/13) Exercise Prescription Duration (Minutes) 30 - 60 minutes total exercise a day. 15 - 20 work intervals in minutes. PRN rest intervals in minutes. Functional Capacity Goal Sustained Metabolic Equivalent of a task (MET) goal of for minutes. Progression (METS) Increase by: METS every: sessions Medications Scheduled Allopurinol (Zyloprim), 300 MG PO DAILY Ascorbic Acid (Vitamin C), 500 MG PO DAILY Cetirizine HCl (Cetirizine HCl), 10 MG PO QHS, (Reported) Clopidogrel Bisulfate (Clopidogrel), 75 MG PO DAILY Ferrous Sulfate (Ferrous Sulfate), 325 MG PO BID Folic Acid (Folic Acid), 1 MG PO DAILY Furosemide (Furosemide), 20 MG PO DAILY Glucosam/Chond/Hyalu/Cf Borate (Move Free Joint Health Tablet), 3 TAB PO DAILY, (Reported) Lisinopril (Lisinopril), 40 MG PO DAILY Metoprolol Tartrate (Metoprolol Tartrate), 75 MG PO TID@0700,1400,2100 Pantoprazole Sodium (Pantoprazole Sodium), 40 MG PO BID Simvastatin (Simvastatin), 40 MG PO QPM, (Reported) Tamsulosin HCl (Flomax), 0.4 MG PO QHS Warfarin Sodium (Coumadin), 3 MG PO DAILY@17 Scheduled PRN Acetaminophen (Tylenol), 650 MG PO Q6H PRN for MILD PAIN (PS 1-4), (Reported) Carboxymethylcellulose Sodium (Refresh Plus), 1 DROP OU TID PRN for DRY EYES, (Reported) Target Goals Individual exercise Rx (1) BP 140/90 or 130/80 if DM or CKD (1) Aerobic active 30+min 5 days per week (1) Target goal LDL-C<100 if triglycerides are >200 Non-HDL-C should be <130 (1) LDL-C<70 for high risk patients (4) HbA1c<7% (1) BMI<25 Waist cir<40in M/<35in F (1) Target Goals Complete cessation of tobacco use (1). Target Goal Assess presence or absence of depression using a valid screening tool (1). Maximize coping skills (2). Positive support system (2). Provider Assessment Provider Assessment: No changes (cardiac rehab unit closed d/t covid 19. pt account on hold) Leah Palafox RN Dec 30, 2019 13:45
== END 2020-01-10 ==
LOC: M CR 13:40
PROVIDERS: ATTEND Internal Medicine Cardiovascular Disease
DX: I21.3 ST elevation (STEMI) myocardial infarction of unspecified site (principal); Z95.1 Presence of aortocoronary bypass graft
CPT/HCPCS: 93798; G0424

== ENCOUNTER → 2019-12-21 | Outpatient (REF) | payer MEDICARE ==
[2019-12-21 13:52] LABS: PERCENT SATURATION 22.7 % (19.7-50.0)
== END ==
LOC: M LAB REF 12:51
PROVIDERS: ATTEND Internal Medicine
DX: D64.9 Anemia, unspecified (principal)

== ENCOUNTER → 2020-04-05 | Outpatient (CLI) | payer MEDICARE ==
[~2020-04-05] MED LIST changes: +ASCO250T20 PO; -ASPI81TA85 PO; +ASPI81TA86 PO; -LISI-1046 PO; +LISI2.5T2 PO; +PANT40TA29 PO; -PANT40TA3 PO; -VITA1TAB23 PO
== END ==
LOC: M PLALAB 10:11
PROVIDERS: ATTEND Nurse Practitioner Women's Health
DX: Z85.46 Personal history of malignant neoplasm of prostate (principal)

== ENCOUNTER → 2021-03-08 | Outpatient (REF) | payer MEDICARE ==
[~2021-03-08] MED LIST changes: +ASPI-569 PO; -ASPI81TAEC PO; -LISI-538 PO; +LISI20TA33 PO
== END ==
LOC: M PLALAB 17:00
PROVIDERS: ATTEND Nurse Practitioner Women's Health
DX: N52.31 Erectile dysfunction following radical prostatectomy (principal)

== ENCOUNTER → 2021-10-02 | Outpatient (CLI) | payer MEDICARE ==
[~2021-10-02] MED LIST changes: -LISI2.5T2 PO; +LISI2.5T9 PO
== END ==
LOC: M LABSMTC 12:40
PROVIDERS: ATTEND Pediatrics
DX: Z20.822 Contact with and (suspected) exposure to COVID-19 (principal)
CPT/HCPCS: C9803; U0003

== ENCOUNTER → 2022-01-08 | Outpatient (CLI) | payer MEDICARE | LOC: M RAD 15:24 | PROVIDERS: ATTEND Internal Medicine | DX: K40.90 Unilateral inguinal hernia, without obstruction or gangrene, not specified as recurrent (principal); N43.3 Hydrocele, unspecified; R09.89 Other specified symptoms and signs involving the circulatory and respiratory systems ==

== ENCOUNTER → 2022-02-27 | Outpatient (CLI) | payer MEDICARE ==
[~2022-02-27] MED LIST changes: +ASPI81TA26 PO; +ATOR40TA75 PO; +COLA100C5 PO; +META0.52 PO; +METO25TA4 PO
== END ==
LOC: M LABSMTC 09:22
PROVIDERS: ATTEND Anesthesiology
DX: Z01.812 Encounter for preprocedural laboratory examination (principal); Z20.822 Contact with and (suspected) exposure to COVID-19

== ENCOUNTER → 2022-04-03 | Outpatient (CLI) | payer MEDICARE | LOC: M LABSMTC 09:42 | PROVIDERS: ATTEND Surgery | DX: Z01.812 Encounter for preprocedural laboratory examination (principal); Z20.822 Contact with and (suspected) exposure to COVID-19 ==

== ENCOUNTER 2022-04-04 10:27 | Day surgery (SDC) | payer MEDICARE ==
[~2022-04-04] VITALS: Ht 172.7 cm; Wt 81.6 kg
[~2022-04-04 10:27] MED LIST changes: +ceFAZolin SOD 2 GM in IV 1 EA IV ONE
[2022-04-04] MEDS ORDERED: LR 1,000 ML IV SCH ×2 (10:35→14:15)
[2022-04-04] MEDS ORDERED: INSULIN LISPRO (NovoLOG) PER UNIT SC PRN (10:35)
[2022-04-04] MEDS ORDERED: ROCURONIUM BROMIDE 50 MG/5 ML VIAL As Ordered ONE (11:13)
[2022-04-04] MEDS ORDERED: LIDOCAINE 2% 100MG/5ML SDV (FOR ANES.) As Ordered ONE (11:13)
[2022-04-04] MEDS ORDERED: ETOMIDATE INJ 20MG/10ML VIAL As Ordered ONE ×2 (11:13→12:11)
[2022-04-04] MEDS ORDERED: fentaNYL 100 MCG/2 ML INJECTION As Ordered ONE (11:13)
[2022-04-04] MEDS ORDERED: ONDANSETRON 4MG/2ML VIAL As Ordered ONE ×2 (11:13→12:09)
[2022-04-04] MEDS ORDERED: SUGAMMADEX SODIUM 500 MG/5 ML VIAL (BRIDION) As Ordered ONE (11:13)
[2022-04-04] MEDS ORDERED: BUPIVACAINE/EPIN 0.25% 30 ML VIAL As Ordered ONE (12:11)
[2022-04-04] MEDS ORDERED: ACETAMINOPHEN 1000MG 100ML IV BTL (OFIRMEV) (J0131 PER 10MG) As Ordered ONE (13:12)
[2022-04-04] MEDS ORDERED: oxyCODONE 5MG TAB PO PRN (14:15)
[2022-04-04] MEDS ORDERED: HYDROMORPHONE HCL 0.5 MG/ 0.5 ML SYRINGE (J1170 PER 1) IV PRN (14:15)
[2022-04-04] MEDS ORDERED: ONDANSETRON 4MG/2ML VIAL IV PRN (14:15)
[2022-04-04] MEDS: fentaNYL 100 MCG/2 ML INJECTION IV PRN ×2 (14:28→14:41)
[2022-04-04] MEDS ORDERED: MEPERIDINE INJ 25 MG/ML VIAL (J2175) IV PRN (14:45)
[2022-04-04 16:15] VITALS: BP 160/74
== END 2022-04-04 16:20 | disposition home or self-care (01) ==
LOC: M SDC 10:27
PROVIDERS: ATTEND Surgery
DX: K40.90 Unilateral inguinal hernia, without obstruction or gangrene, not specified as recurrent (principal); I25.10 Atherosclerotic heart disease of native coronary artery without angina pectoris; I25.2 Old myocardial infarction; I10 Essential (primary) hypertension; E78.5 Hyperlipidemia, unspecified; Z95.0 Presence of cardiac pacemaker; Z95.1 Presence of aortocoronary bypass graft; Z79.02 Long term (current) use of antithrombotics/antiplatelets; Z79.82 Long term (current) use of aspirin; Z79.899 Other long term (current) drug therapy; Z79.51 Long term (current) use of inhaled steroids; Z87.891 Personal history of nicotine dependence; Z85.46 Personal history of malignant neoplasm of prostate; M10.9 Gout, unspecified; K21.9 Gastro-esophageal reflux disease without esophagitis
CPT/HCPCS: 49650; C1781; J0131; J0690; J2175; J2405; J3010; S2900

== ENCOUNTER → 2022-07-17 | Outpatient (REF) | payer MEDICARE ==
[~2022-07-17] MED LIST changes: -ceFAZolin SOD 2 GM in IV 1 EA IV ONE
== END ==
LOC: M LAB REF 12:17
PROVIDERS: ATTEND Internal Medicine
DX: M10.9 Gout, unspecified (principal)

== ENCOUNTER → 2022-10-30 | Outpatient (CLI) | payer MEDICARE ==
[~2022-10-30] MED LIST changes: +CLOP75TA99 PO; -PLAV1TAB2 PO; -POTA10CA32 PO; +POTA10CA33 PO
== END ==
LOC: M LABSMTC 09:24
PROVIDERS: ATTEND Family Medicine
DX: Z11.52 Encounter for screening for COVID-19 (principal)
CPT/HCPCS: 87635; C9803

== ENCOUNTER → 2022-12-12 | Outpatient (REF) | payer MEDICARE | LOC: M LAB REF 11:36 | PROVIDERS: ATTEND Internal Medicine | DX: R41.3 Other amnesia (principal) ==

== ENCOUNTER → 2023-08-24 | Outpatient (CLI) | payer MEDICARE ==
[~2023-08-24] MED LIST changes: -MAGN1INJ2 IV; +MAGN1PIG IV; -POTA10CA33 PO; +POTA10CA60 PO
== END ==
LOC: M WUC 12:44
PROVIDERS: ATTEND Nurse Practitioner Family
DX: R05.3 Chronic cough (principal)

== ENCOUNTER 2023-10-09 19:24 | Emergency (ER) | payer MEDICARE ==
[~2023-10-09] VITALS: Ht 172.7 cm; Wt 88.2 kg
[2023-10-09 19:24] VITALS: TEMP 97.2
[2023-10-09 20:50] LABS: BASO % 0.4 % (0.0-1.0); EOS # 0.1 10^3/uL (0.0-0.5); EOS % 1.4 % (0.0-3.0); HEMATOCRIT 37.5 % (42.0-52.0); HEMOGLOBIN 12.5 g/dl (13.5-17.5); LYMPH # 2.7 10^3/uL (1.5-5.0); LYMPH % 34.4 % (24.0-44.0); MEAN CORPUSCULAR HEMOGLOBIN 31.4 pg (27.0-33.0); MEAN CORPUSCULAR HGB CONC 33.3 g/dl (32.0-36.5); MEAN CORPUSCULAR VOLUME 94.2 fl (80.0-96.0); MONO # 0.8 10^3/uL (0.0-0.8); MONO % 10.5 % (2.0-8.0); NEUTROPHILS # 4.1 10^3/uL (1.5-8.5); NEUTROPHILS % 52.7 % (36.0-66.0); RED BLOOD COUNT 3.98 10^6/uL (4.30-6.10); WHITE BLOOD COUNT 7.7 10^3/uL (4.0-10.0)
[2023-10-09 21:03] LABS: PLATELET COUNT, AUTOMATED 250 10^3/uL (150-450)
[2023-10-09 21:09] LABS: CK-MB VALUE MASS 3.8 NG/ML (<3.6)
[2023-10-09 21:10] LABS: BLOOD UREA NITROGEN 24 MG/DL (9-23); CALCIUM LEVEL 8.8 MG/DL (8.3-10.6); CARBON DIOXIDE LEVEL 25 MMOL/L (20-31); CHLORIDE LEVEL 108 MMOL/L (98-107); CREATININE FOR GFR 1.05 MG/DL (0.70-1.30); GLOMERULAR FILTRATION RATE > 60.0 (>35); GLUCOSE, FASTING 98 MG/DL (74-106); POTASSIUM SERUM 4.7 MMOL/L (3.5-5.1); SODIUM LEVEL 142 MMOL/L (136-145)
[2023-10-09 21:12] LABS: CPK CREATINE PHOSPHOKINASE 215 U/L (46-171); MB/CK RELATIVE INDEX 1.76 (< OR =4)
[2023-10-09] MEDS ORDERED: ISOVUE-370 76% 100ML VIAL As Ordered ONE (22:21)
[2023-10-09 22:22] LABS: CK-MB VALUE MASS 2.9 NG/ML (<3.6)
[2023-10-09 22:30] LABS: MB/CK RELATIVE INDEX 1.58 (< OR =4)
[2023-10-09 23:15] VITALS: BP 144/81; O2SAT 97
== END 2023-10-10 00:36 | disposition home or self-care (01) ==
LOC: M ED 19:24
DX: R07.9 Chest pain, unspecified (principal); I10 Essential (primary) hypertension; I44.4 Left anterior fascicular block; I44.7 Left bundle-branch block, unspecified; I25.2 Old myocardial infarction; Z95.0 Presence of cardiac pacemaker; Z79.82 Long term (current) use of aspirin; Z79.02 Long term (current) use of antithrombotics/antiplatelets; Z79.811 Long term (current) use of aromatase inhibitors; Z79.01 Long term (current) use of anticoagulants; Z79.899 Other long term (current) drug therapy
CPT/HCPCS: 36415; 71045; 71275; 80048; 82550; 82553; 84484; 85025; 87486; 87581; 87633; 87798; 93005; 93041; 94760; 99285; Q9967

== ENCOUNTER → 2024-03-17 | Outpatient (REF) | payer MEDICARE ==
[~2024-03-17] MED LIST changes: -POTA10CA60 PO; +POTA10CA70 PO
[2024-03-17 14:25] LABS: PERCENT SATURATION 20.5 % (19.7-50.0)
== END ==
LOC: M LAB REF 13:16
PROVIDERS: ATTEND Internal Medicine
DX: D64.9 Anemia, unspecified (principal)

== ENCOUNTER 2024-06-21 21:22 | Emergency (ER) | payer MEDICARE ==
[~2024-06-21] VITALS: Ht 172.7 cm; Wt 87.6 kg
[2024-06-21 21:23] VITALS: TEMP 97.4
[2024-06-21 22:11] LABS: BASO % 0.2 % (0.0-1.0); EOS # 0.1 10^3/uL (0.0-0.5); EOS % 1.1 % (0.0-3.0); HEMATOCRIT 37.1 % (42.0-52.0); HEMOGLOBIN 12.8 g/dl (13.5-17.5); LYMPH # 2.7 10^3/uL (1.5-5.0); LYMPH % 33.2 % (24.0-44.0); MEAN CORPUSCULAR HEMOGLOBIN 31.8 pg (27.0-33.0); MEAN CORPUSCULAR HGB CONC 34.5 g/dl (32.0-36.5); MEAN CORPUSCULAR VOLUME 92.1 fl (80.0-96.0); MONO # 0.9 10^3/uL (0.0-0.8); MONO % 11.4 % (2.0-8.0); NEUTROPHILS # 4.4 10^3/uL (1.5-8.5); NEUTROPHILS % 53.5 % (36.0-66.0); PLATELET COUNT, AUTOMATED 256 10^3/uL (150-450); RED BLOOD COUNT 4.03 10^6/uL (4.30-6.10); WHITE BLOOD COUNT 8.2 10^3/uL (4.0-10.0)
[2024-06-21 22:26] LABS: BLOOD UREA NITROGEN 23 MG/DL (9-23); CALCIUM LEVEL 9.3 MG/DL (8.3-10.6); CARBON DIOXIDE LEVEL 28 MMOL/L (20-31); CHLORIDE LEVEL 109 MMOL/L (98-107); CREATININE FOR GFR 1.14 MG/DL (0.70-1.30); GLOMERULAR FILTRATION RATE > 60.0 (>35); GLUCOSE, FASTING 107 MG/DL (74-106); POTASSIUM SERUM 4.5 MMOL/L (3.5-5.1); SODIUM LEVEL 142 MMOL/L (136-145)
[2024-06-21 22:48] LABS: CPK CREATINE PHOSPHOKINASE 212 U/L (46-171); MB/CK RELATIVE INDEX 2.35 (< OR =4)
[2024-06-21 23:24] LABS: CK-MB VALUE MASS 4.3 NG/ML (<3.6)
[2024-06-21 23:36] LABS: MB/CK RELATIVE INDEX 2.04 (< OR =4)
[2024-06-22 02:19] LABS: MAGNESIUM LEVEL 1.5 MG/DL (1.8-2.4)
[2024-06-22] MEDS: PANTOPRAZOLE 40MG TAB (PROTONIX) PO ONE (02:22)
[2024-06-22] MEDS: ACETAMINOPHEN 500 MG TAB PO ONE (02:22)
[2024-06-22] MEDS: MAGNESIUM GLUCONATE 500 MG TAB PO ONE (02:22)
[2024-06-22 04:00] VITALS: O2SAT 98
[2024-06-22 04:01] VITALS: BP 125/81
== END 2024-06-22 04:35 | disposition home or self-care (01) ==
LOC: M ED 21:22
DX: R07.9 Chest pain, unspecified (principal); I20.0 Unstable angina; I44.4 Left anterior fascicular block; I44.7 Left bundle-branch block, unspecified; Z86.79 Personal history of other diseases of the circulatory system; Z79.82 Long term (current) use of aspirin; Z79.02 Long term (current) use of antithrombotics/antiplatelets; Z79.899 Other long term (current) drug therapy

== ENCOUNTER → 2025-01-06 | Outpatient (REF) | payer MEDICARE ==
[2025-01-06 13:40] LABS: PERCENT SATURATION 31.5 % (19.7-50.0)
[2025-01-06 13:43] LABS: FERRITIN 28.2 NG/ML (10.5-307.3)
== END ==
LOC: M LAB REF 12:37
PROVIDERS: ATTEND Internal Medicine
DX: D64.9 Anemia, unspecified (principal)

== ENCOUNTER → 2025-01-11 | Outpatient (REF) | payer MEDICARE ==
[2025-01-11 21:08] LABS: RSV AMPLIFICATION NEGATIVE (NEGATIVE)
== END ==
LOC: M LAB REF 17:14
PROVIDERS: ATTEND Nurse Practitioner Family
DX: R53.83 Other fatigue (principal)

== ENCOUNTER 2025-01-13 15:53 | Emergency (ER) | payer MEDICARE ==
[~2025-01-13] VITALS: Ht 172.7 cm; Wt 85.9 kg
[2025-01-13 17:51] VITALS: TEMP 97
[2025-01-13] MEDS: NS 500 ML IV ONE (18:36)
[2025-01-13 18:45] LABS: HEMOGLOBIN 13.4 g/dl (13.5-17.5); MEAN CORPUSCULAR HEMOGLOBIN 31.5 pg (27.0-33.0); MEAN CORPUSCULAR HGB CONC 34.4 g/dl (32.0-36.5); MEAN CORPUSCULAR VOLUME 91.8 fl (80.0-96.0); PLATELET COUNT, AUTOMATED 252 10^3/uL (150-450); RED BLOOD COUNT 4.25 10^6/uL (4.30-6.10); WHITE BLOOD COUNT 7.4 10^3/uL (4.0-10.0)
[2025-01-13 18:55] LABS: KETONE, URINE AUTO RFX NEGATIVE (NEGATIVE); LEUKOCYTE ESTERASE UR AUTO RFX NEGATIVE (NEGATIVE); MUCUS, URINE RFX SMALL (NEGATIVE); NITRITE, URINE AUTO RFX NEGATIVE (NEGATIVE); RBC, URINE AUTO RFX 0 /HPF (0-3); SQUAM EPITHELIAL CELL UR AURFX 1 /HPF (0-6); WBC, URINE AUTO RFX 0 /HPF (0-3)
[2025-01-13 19:13] LABS: ALBUMIN 3.8 G/DL (3.2-5.2); BILIRUBIN,DIRECT 0.2 MG/DL (<0.4); BILIRUBIN,TOTAL 0.5 MG/DL (0.3-1.2); CALCIUM LEVEL 9.3 MG/DL (8.3-10.6); CREATININE FOR GFR 1.76 MG/DL (0.70-1.30); GLOMERULAR FILTRATION RATE 38.1 (>35); POTASSIUM SERUM 4.3 MMOL/L (3.5-5.1); TOTAL PROTEIN 6.6 G/DL (5.7-8.2)
[2025-01-13 19:14] LABS: ATYPICAL LYMPH 4 % (0-5); BASOPHILS 1 % (0-1); EOSINOPHILS 5 % (0-3); LYMPHOCYTES 20 % (16-44); MONOCYTES 15 % (0-5); NEUTROPHILS 55 % (28-66); PLATELET ESTIMATE NORMAL (NORMAL)
[2025-01-13 21:28] VITALS: BP 127/67; O2SAT 98
== END 2025-01-13 21:37 | disposition home or self-care (01) ==
LOC: M ED 15:53
DX: E86.0 Dehydration (principal); I25.2 Old myocardial infarction; Z86.79 Personal history of other diseases of the circulatory system; Z79.02 Long term (current) use of antithrombotics/antiplatelets; Z79.82 Long term (current) use of aspirin; Z79.899 Other long term (current) drug therapy

== ENCOUNTER 2025-01-26 14:17 | Observation (INO) | payer MEDICARE ==
[~2025-01-26] VITALS: Ht 172.7 cm; Wt 87.2 kg
[2025-01-26] MEDS: NS 500 ML IV ONE ×2 (15:14→16:03)
[2025-01-26 15:16] LABS: BASO % 0.1 % (0.0-1.0); EOS # 0.1 10^3/uL (0.0-0.5); HEMATOCRIT 38.1 % (42.0-52.0); HEMOGLOBIN 12.9 g/dl (13.5-17.5); LYMPH # 1.1 10^3/uL (1.5-5.0); LYMPH % 10.6 % (24.0-44.0); MEAN CORPUSCULAR HEMOGLOBIN 31.4 pg (27.0-33.0); MEAN CORPUSCULAR HGB CONC 33.9 g/dl (32.0-36.5); MEAN CORPUSCULAR VOLUME 92.7 fl (80.0-96.0); MONO # 0.8 10^3/uL (0.0-0.8); MONO % 7.7 % (2.0-8.0); NEUTROPHILS % 80.2 % (36.0-66.0); PLATELET COUNT, AUTOMATED 220 10^3/uL (150-450); RED BLOOD COUNT 4.11 10^6/uL (4.30-6.10)
[2025-01-26 15:41] LABS: CALCIUM LEVEL 8.5 MG/DL (8.3-10.6); CREATININE FOR GFR 1.36 MG/DL (0.70-1.30); MAGNESIUM LEVEL 1.4 MG/DL (1.8-2.4); POTASSIUM SERUM 4.3 MMOL/L (3.5-5.1)
[2025-01-26] MEDS: MAG SULF 1GM/100ML (MAG RUN) 1 GM in IV 1 EA IV ONE ×2 (16:03)
[2025-01-26] MEDS: LOPERAMIDE 2 MG CAPLET PO ONE (21:58)
[2025-01-26] MEDS ORDERED: VITA-158 PO (22:08)
[2025-01-26] MEDS ORDERED: PANT40TA29 PO (22:08)
[2025-01-26] MEDS ORDERED: XALA0.007 OU (22:08)
[2025-01-26] MEDS ORDERED: MAGN400T35 PO (22:08)
[2025-01-26] MEDS ORDERED: VITA100093 PO (22:10)
[2025-01-26] MEDS ORDERED: ACETAMINOPHEN 325 MG TAB PO PRN (22:10)
[2025-01-26] MEDS ORDERED: HOME MED LIST COMPLETE! XX SCH (22:10)
[2025-01-26] MEDS ORDERED: CYAN-1 PO (22:10)
[2025-01-26] MEDS ORDERED: MAALOX 30 ML SUSP *UDC PO PRN (22:10)
[2025-01-26] MEDS ORDERED: LOPERAMIDE 2 MG CAPLET PO PRN (23:00)
[2025-01-26] MEDS: METOPROLOL TART 25 MG TABLET PO SCH (23:13)
[2025-01-26] MEDS: MAGNESIUM OXIDE 400MG TAB (MAG-OX) PO SCH (23:13)
[2025-01-26] MEDS: LATANOPROST 0.005% OPHTH SOLN 2.5 ML OU SCH (23:15)
[2025-01-26 23:32] LABS: CALCIUM LEVEL 8.1 MG/DL (8.3-10.6); CREATININE FOR GFR 1.09 MG/DL (0.70-1.30); GLOMERULAR FILTRATION RATE 67.8 (>35); MAGNESIUM LEVEL 1.8 MG/DL (1.8-2.4); PHOSPHORUS LEVEL 3.6 MG/DL (2.4-5.1); POTASSIUM SERUM 3.9 MMOL/L (3.5-5.1)
[2025-01-26] MEDS: D5W/LR 1,000 ML IV SCH (23:45)
[2025-01-27] MEDS ORDERED: ONDANSETRON 4MG 2ML VIAL As Ordered ONE (01:22)
[2025-01-27] MEDS: ONDANSETRON 4MG 2ML VIAL IV ONE (01:30)
[2025-01-27 04:18] VITALS: BP 117/71; TEMP 97.9; O2SAT 93
[2025-01-27 06:19] LABS: HEMATOCRIT 37.6 % (42.0-52.0); HEMOGLOBIN 12.6 g/dl (13.5-17.5); MEAN CORPUSCULAR HEMOGLOBIN 30.8 pg (27.0-33.0); MEAN CORPUSCULAR HGB CONC 33.5 g/dl (32.0-36.5); MEAN CORPUSCULAR VOLUME 91.9 fl (80.0-96.0); PLATELET COUNT, AUTOMATED 202 10^3/uL (150-450); RED BLOOD COUNT 4.09 10^6/uL (4.30-6.10); WHITE BLOOD COUNT 7.4 10^3/uL (4.0-10.0)
[2025-01-27 06:47] LABS: CALCIUM LEVEL 8.4 MG/DL (8.3-10.6); CREATININE FOR GFR 1.16 MG/DL (0.70-1.30); GLOMERULAR FILTRATION RATE 62.9 (>35); MAGNESIUM LEVEL 1.7 MG/DL (1.8-2.4); POTASSIUM SERUM 4.3 MMOL/L (3.5-5.1)
[2025-01-27 06:49] LABS: PROCALCITONIN 0.21 ng/ml
[2025-01-27] MEDS: MAG SULF 1GM/100ML (MAG RUN) 1 GM in IV 1 EA IV SCH (08:44)
[2025-01-27] MEDS: HEPARIN SOD (PORCINE) 5000UNITS/ML 1ML VIAL/SYRINGE SC SCH (08:44)
[2025-01-27] MEDS: CLOPIDOGREL 75 MG TAB PO SCH (08:44)
[2025-01-27] MEDS: ASCORBIC ACID 500 MG TAB PO SCH (08:44)
[2025-01-27 08:45] VITALS: BP 117/71
[2025-01-27] MEDS: ATORVASTATIN 20 MG TAB PO SCH (08:45)
[2025-01-27] MEDS ORDERED: allopurinoL 100 MG TAB PO SCH (09:00)
[2025-01-27] MEDS ORDERED: LOPE-39 PO (09:54)
[2025-01-27] MEDS: FAMOTIDINE IV BAG 20 MG in IV 1 EA IV SCH (10:52)
[2025-01-27] MEDS ORDERED: MAGN400T2 PO (11:47)
[2025-01-27 12:07] VITALS: BP 112/70; TEMP 97.7; O2SAT 93
== END 2025-01-27 12:25 | disposition home or self-care (01) ==
LOC: M ED 14:17 → M ED INP 14:18 → M MSPAV 01-27 04:15
PROVIDERS: ADMIT Student in an Organized Health Care Education/Training Program; ATTEND Internal Medicine
DX: A08.4 Viral intestinal infection, unspecified (principal); N17.9 Acute kidney failure, unspecified; E83.42 Hypomagnesemia; I10 Essential (primary) hypertension; E78.5 Hyperlipidemia, unspecified; I25.10 Atherosclerotic heart disease of native coronary artery without angina pectoris; Z95.1 Presence of aortocoronary bypass graft; I48.91 Unspecified atrial fibrillation; Z79.899 Other long term (current) drug therapy
CPT/HCPCS: 36415; 71045; 80048; 83735; 84100; 84145; 85025; 85027; 87507; 93041; 94760; 96361; 96372; 96374; 96375; 97161; 99285; G0378; J1308; J2405; J3475

== ENCOUNTER → 2025-07-12 | Outpatient (REF) | payer MEDICARE ==
[~2025-07-12] MED LIST changes: +CYAN-1 PO; -FLOM0.4C39 PO; +LOPE-39 PO; +MAGN400T2 PO; +MAGN400T35 PO; +MELA5TAB44 PO; -MELA5TAB7 PO; +TAMS-18 PO; +VITA100093 PO; +XALA0.007 OU
[2025-07-12 12:44] LABS: IRON (FE) 58.0 UG/DL (65-175); PERCENT SATURATION 18.1 % (19.7-50.0)
== END ==
LOC: M LAB REF 11:52
PROVIDERS: ATTEND Internal Medicine
DX: D68.69 Other thrombophilia (principal); R53.83 Other fatigue

== ENCOUNTER 2025-09-26 23:07 | Emergency (ER) | payer MEDICARE ==
[~2025-09-26] VITALS: Ht 172.7 cm; Wt 86.8 kg
[2025-09-27 01:16] LABS: BASO # 0.0 10^3/uL (0.0-0.2); BASO % 0.4 % (0.0-1.0); EOS # 0.1 10^3/uL (0.0-0.5); EOS % 1.7 % (0.0-3.0); LYMPH # 2.1 10^3/uL (1.5-5.0); LYMPH % 25.5 % (24.0-44.0); MONO # 0.9 10^3/uL (0.0-0.8); MONO % 11.2 % (2.0-8.0); NEUTROPHILS # 5.0 10^3/uL (1.5-8.5); NEUTROPHILS % 61.0 % (36.0-66.0); PLATELET COUNT, AUTOMATED 241 10^3/uL (150-450)
[2025-09-27 01:30] LABS: CK-MB VALUE MASS 9.4 NG/ML (<3.6)
[2025-09-27 01:32] LABS: CALCIUM LEVEL 8.5 MG/DL (8.3-10.6); CARBON DIOXIDE LEVEL 27.0 MMOL/L (20-31); CHLORIDE LEVEL 107.0 MMOL/L (98-107); CPK CREATINE PHOSPHOKINASE 260.0 U/L (46-171); CREATININE FOR GFR 1.37 MG/DL (0.70-1.30); GLOMERULAR FILTRATION RATE 51.2 (>35); MAGNESIUM LEVEL 1.7 MG/DL (1.8-2.4); MB/CK RELATIVE INDEX 3.61 (< OR =4); POTASSIUM SERUM 4.5 MMOL/L (3.5-5.1); SODIUM LEVEL 141.0 MMOL/L (136-145)
[2025-09-27] MEDS ORDERED: ROPI5TAB19 PO (01:40)
[2025-09-27 03:13] VITALS: BP 134/69; TEMP 97.3; O2SAT 97
== END 2025-09-27 03:11 | disposition home or self-care (01) ==
LOC: M ED 23:07
DX: R07.9 Chest pain, unspecified (principal); G25.81 Restless legs syndrome; I25.2 Old myocardial infarction; I10 Essential (primary) hypertension; E78.5 Hyperlipidemia, unspecified; Z95.0 Presence of cardiac pacemaker; F10.10 Alcohol abuse, uncomplicated; Z79.1 Long term (current) use of non-steroidal anti-inflammatories (NSAID); Z79.899 Other long term (current) drug therapy; Z79.02 Long term (current) use of antithrombotics/antiplatelets